=== PATIENT | female | born 1950 | race Caucasian/White ===

== ENCOUNTER → 2017-09-07 08:53 | Outpatient (CLI) | payer MEDICARE, OTHER, SELFPAY ==
--- NOTE | 2017-09-07 08:57 | DI.US.S_ITS ---
PROCEDURE: US ARTERIAL DUPLEX LE RT INDICATIONS: CLAUDICATION OF RIGHT LOWER EXTREMITY TECHNIQUE: Color and pulse Doppler interrogation was performed of the right lower extremity arterial system, with image documentation. COMPARISON: None. FINDINGS: Common femoral artery: 97 cm/sec, with triphasic flow. Deep femoral artery: Not seen Proximal superficial femoral artery: 87 cm/sec, with biphasic flow. Mid superficial femoral artery: 54 cm/sec, with biphasic flow. Distal superficial femoral artery: 38 cm/sec, with biphasic flow. Popliteal artery: No flow Posterior tibial artery: No flow Anterior tibial artery/dorsalis pedis: 23 cm/sec, with monophasic flow. Toth-scale imaging description: Minimal plaque. Superficial femoral artery in situ graft using the greater saphenous vein. IMPRESSION: 1. Profundus femoral artery is nonvisualized. 2. 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 The popliteal artery occlusion may be secondary to stenosis at the distal end of the venous graft, but indeterminate. MRA runoff study would be helpful if not contraindicated. 2. The anterior tibial artery shows low velocity, monophasic flow Dictated by: Suresh Wilson M.D. on 09/07/2017 at 11:36 Approved by: Suresh Wilson M.D. on 09/07/2017 at 11:44
== END ==
PROVIDERS: Family Provider Family Medicine; PCP Family Medicine; Visit Provider Family Medicine
DX: I70.211 Atherosclerosis of native arteries of extremities with intermittent claudication, right leg (principal)
CPT/HCPCS: 93926

== ENCOUNTER → 2017-09-25 11:33 | Outpatient (CLI) | payer MEDICARE, OTHER, SELFPAY ==
[2017-09-25 12:29] LABS: Add Manual Diff / Slide Review NO; Eosinophils Percent Auto 1.9 % (2-4); Hematocrit 43.4 % (36-46); Hemoglobin 14.4 g/dL (12.0-16.0); Lymphocytes Percent Auto 39.3 % (25-40); Mean Corpuscular HGB Conc 33.2 % (30-36); Mean Corpuscular Hemoglobin 32.2 PG (26-34); Mean Corpuscular Volume 96.9 fL (80-100); Monocytes Percent Auto 8.7 % (3-14); Neutrophils Absolute Auto 2000 /uL (3000-5900); Neutrophils Percent Auto 49.1 % (50-75); Platelet Count 178 X10^3/uL (150-400); Red Blood Cell Count 4.48 X10^6/uL (4.0-5.2); Red Cell Distribution Width 13.6 % (11.6-14.8); White Blood Cell Count 4.2 X10^3/uL (4.5-11.0)
[2017-09-25 12:52] LABS: Alanine Aminotransferase 22 IU/L (9-52); Albumin 4.5 g/dL (3.5-5.0); Albumin Globulin Ratio 1.7 (1.0-2.8); Alkaline Phosphatase 81 U/L (38-126); Aspartate Aminotransferase 24 IU/L (14-36); Bilirubin Total 0.5 mg/dL (0.2-1.3); Blood Urea Nitrogen 16 mg/dL (7-17); Carbon Dioxide 34 mmol/L (22-32); Chloride 101 mmol/L (98-107); Estimated Glomerular Filt Rate > 60.0 mL/min (>60); Globulin 2.7 g/dL (1.7-4.1); Glucose 92 mg/dL (80-110); HEMOLYSIS < 15 (0-50); Sodium 144 mmol/L (137-145); Total Protein 7.2 g/dL (6.3-8.2)
== END ==
PROVIDERS: PCP Family Medicine; Visit Provider Surgery Vascular Surgery
DX: I73.9 Peripheral vascular disease, unspecified (principal)
CPT/HCPCS: 36415; 80053; 85025

== ENCOUNTER → 2018-01-01 07:01 | Outpatient (CLI) | payer MEDICARE, OTHER, SELFPAY ==
[2018-01-01 09:19] LABS: Cholesterol 275 mg/dL (140-199); HDL Cholesterol 77 mg/dL (40-60); LDL Cholesterol Calculated 183 mg/dL (<100); Triglycerides 73 mg/dL (35-150)
== END ==
PROVIDERS: Family Provider Family Medicine; PCP Family Medicine; Visit Provider Family Medicine
DX: E78.5 Hyperlipidemia, unspecified (principal)
CPT/HCPCS: 36415; 80061

== ENCOUNTER → 2018-04-08 07:50 | Outpatient (CLI) | payer MEDICARE, OTHER, SELFPAY ==
[2018-04-08 09:09] LABS: Cholesterol 261 mg/dL (140-199); HDL Cholesterol 81 mg/dL (40-60); LDL Cholesterol Calculated 166 mg/dL (<100); Triglycerides 72 mg/dL (35-150)
== END ==
PROVIDERS: PCP Family Medicine; Visit Provider Family Medicine
DX: E78.5 Hyperlipidemia, unspecified (principal)
CPT/HCPCS: 36415; 80061

== ENCOUNTER → 2018-05-14 15:38 | Outpatient (CLI) | payer MEDICARE, OTHER, SELFPAY ==
--- NOTE | 2018-05-14 15:42 | DI.MRI.S_ITS ---
PROCEDURE: MR HEAD/BRAIN WO CON INDICATIONS: l facial nerve abn TECHNIQUE: Non-contrast axial T1 spin echo, axial T2 fast spin echo, sagittal and axial FLAIR, coronal T2 fast spin echo, axial gradient echo, axial diffusion and ADC through the brain. COMPARISON: None. FINDINGS: Image quality: Excellent. CSF spaces: Ventricles appear symmetric in size and shape. Basal cisterns are patent. No extra-axial fluid collections. Brain: In this patient with this given history, scrutiny is given to the course of the left facial nerve, including extracranially along the left parotid gland. No masses or other abnormalities can be seen to the limits of this noncontrast study. No intracranial bleeds or mass effects. There is cerebral volume loss for age. There are periventricular and deep white matter chronic small vessel ischemic changes. Brainstem appears normal. Diffusion-weighted images show no acute ischemic insults. No chronic ischemic insults. Normal intravascular flow voids are present. Skull and face: Calvarial bone marrow is normal in signal. Orbits are normal. Sinuses: Sinuses and mastoids are clear. IMPRESSION: A cause of left facial nerve abnormality is not identified on these noncontrast images. Dictated by: Sergo Cobb M.D. on 05/14/2018 at 17:20 Approved by: Sergo Cobb M.D. on 05/14/2018 at 17:22
== END ==
PROVIDERS: PCP Family Medicine; Visit Provider Family Medicine
DX: G51.4 Facial myokymia (principal); F95.9 Tic disorder, unspecified
CPT/HCPCS: 70551

== ENCOUNTER → 2018-05-27 08:10 | Outpatient (CLI) | payer MEDICARE, OTHER, SELFPAY ==
[2018-05-27 09:35] LABS: Cholesterol 204 mg/dL (140-199); HDL Cholesterol 71 mg/dL (40-60); LDL Cholesterol Calculated 118 mg/dL (<100); Triglycerides 75 mg/dL (35-150)
== END ==
PROVIDERS: PCP Family Medicine; Visit Provider Family Medicine
DX: E78.2 Mixed hyperlipidemia (principal)
CPT/HCPCS: 36415; 80061

== ENCOUNTER → 2018-11-15 08:35 | Outpatient (CLI) | payer MEDICARE, OTHER, SELFPAY ==
[2018-11-15 10:31] LABS: Cholesterol 220 mg/dL (140-199); HDL Cholesterol 81 mg/dL (40-60); LDL Cholesterol Calculated 128 mg/dL (<100); Triglycerides 55 mg/dL (35-150)
== END ==
PROVIDERS: PCP Family Medicine; Visit Provider Family Medicine
DX: E78.2 Mixed hyperlipidemia (principal)
CPT/HCPCS: 36415; 80061

== ENCOUNTER 2018-11-16 23:58 | Emergency (ER) | payer MEDICARE, OTHER, SELFPAY ==
[2018-11-17 00:15] VITALS: BP 136/77; PULSE 78; RESP 20; O2SAT 97; BMI 24.2
[2018-11-17 00:52] LABS: Add Manual Diff / Slide Review NO; Basophils Absolute Auto 0 /uL (0-100); Basophils Percent Auto 0.5 % (0-2); Eosinophils Absolute Auto 200 /uL (0-450); Eosinophils Percent Auto 1.6 % (2-4); Hematocrit 50.3 % (36-46); Hemoglobin 17.1 g/dL (12.0-16.0); Lymphocytes Absolute Auto 2500 /uL (1100-4500); Lymphocytes Percent Auto 24.9 % (25-40); Mean Corpuscular Hemoglobin 34.3 PG (26-34); Monocytes Absolute Auto 600 /uL (0-900); Monocytes Percent Auto 5.5 % (3-14); Neutrophils Absolute Auto 6900 /uL (1500-7000); Neutrophils Percent Auto 67.5 % (50-75); Platelet Count 184 X10^3/uL (150-400); Red Blood Cell Count 4.98 X10^6/uL (4.0-5.2); Red Cell Distribution Width 12.5 % (11.6-14.8); White Blood Cell Count 10.2 X10^3/uL (4.5-11.0)
[2018-11-17 00:59] VITALS: BP 131/77
[2018-11-17 00:59] LABS: Alanine Aminotransferase 21 IU/L (9-52); Albumin Globulin Ratio 1.5 (1.0-2.8); Alkaline Phosphatase 99 U/L (38-126); Aspartate Aminotransferase 35 IU/L (14-36); BUN Creatinine Ratio 24.4 (6-22); Bilirubin Total 0.9 mg/dL (0.2-1.3); Blood Urea Nitrogen 22 mg/dL (7-17); Calcium 10.6 mg/dL (8.4-10.2); Carbon Dioxide 30 mmol/L (22-32); Chloride 100 mmol/L (98-107); Estimated Glomerular Filt Rate > 60.0 mL/min (>60); Globulin 3.4 g/dL (1.7-4.1); Glucose 159 mg/dL (80-110); HEMOLYSIS 45 (0-50); Lipase 266 U/L (23-300); Potassium 3.7 mmol/L (3.4-5.1); Sodium 143 mmol/L (137-145); Total Protein 8.4 g/dL (6.3-8.2)
[2018-11-17] MEDS: SODIUM CHLORIDE 0.9% 1,000 ML 150 ML IV (01:17)
[2018-11-17 01:28] VITALS: BP 143/86
--- NOTE | 2018-11-17 01:59 | ED.ABDPAIN ---
HPI - Abdominal Pain General Chief Complaint: Abdominal Pain Stated Complaint: states has bowel obstruction, has had two before Time Seen by Provider: 11/17/18 01:53 Source: patient and family Mode of arrival: Ambulatory Limitations: no limitations History of Present Illness HPI narrative: This is a pleasant 68-year-old female who comes to the emergency department with complaint of abdominal pain. Patient states she has had a history of prior obstructions which she states were treated with surgery but she did not have resections but lysis of adhesions at that time. Patient states today she started having abdominal pain which is quite significant. It felt similar to her prior episodes when she required surgery. She states while she has been here the pain has eased up but she has started to have diarrhea frequently. She did have several episodes of vomiting earlier today. She is not currently, she denies any nausea initially but later during our conversation states that she is starting to feel nauseated. Patient has not noticed any black or blood in her stool. Her pain continues to be resolved. She denies any urinary frequency urgency or dysuria. She denies any radiation of her pain to her back, no change in location. She states it is the same location as in past events and just along her midline vertical incision. Patient denies any fevers. Related Data Home Medications Medication Instructions Recorded Confirmed aspirin 81 mg tablet,delayed 81 mg PO DAILY 01/02/18 05/29/18 release diphenhydramine HCl 50 mg capsule 50 mg PO BEDTIME PRN 01/02/18 05/29/18 ibuprofen 200 mg tablet 400 mg PO BID PRN 01/02/18 05/29/18 Previous Rx's Medication Instructions Recorded pravastatin 20 mg tablet 40 mg PO DAILY #180 tab 04/17/18 venlafaxine 37.5 mg tablet 75 mg PO DAILY #180 tab 04/17/18 clotrimazole-betamethasone 1 1 applictn TOPICAL BID #45 gram 04/22/18 %-0.05 % topical cream omeprazole 20 mg capsule,delayed 20 mg PO DAILY #90 cap 10/08/18 release diazepam 10 mg tablet 10 mg PO BID PRN #90 tab 11/01/18 Allergies Allergy/AdvReac Type Severity Reaction Status Date / Time No Known Allergies Allergy Uncoded 11/17/18 03:29 Review of Systems Review of Systems ROS Unobtainable: All systems reviewed & are unremarkable except as noted in HPI and below Constitutional Constitutional: Denies chills, Denies fever(s), Denies lethargy and Denies weakness Cardiovascular Cardiovascular: Denies chest pain and Denies dyspnea Respiratory Respiratory: Denies dyspnea Gastrointestinal Gastrointestinal: Reports abdominal pain (resolved now.), Denies melena, Denies hematochezia, Denies change in bowel habits, Denies constipation, Reports diarrhea, Reports nausea and Reports vomiting (resolved.) Genitourinary Genitourinary: Reports as per HPI, Denies hematuria, Denies urinary frequency, Denies dysuria, Denies flank pain, Denies urinary incontinence, Denies urinary hesitancy and Denies urinary urgency Neurologic Neurologic: Denies weakness [facility] Medical History Acne (Resolved 1963) Anxiety (Chronic) Cataract (Resolved 2014) Chicken pox (Resolved) Depression (Chronic) DVT (deep venous thrombosis) (Resolved 1997) Femoral-femoral bypass graft thrombosis, left (Resolved 1998) Measles (Resolved) Mumps (Resolved) Plantar warts (Resolved 1974) Substance abuse (Chronic) Surgical History Anesthesia (Resolved) History of cataract removal with insertion of prosthetic lens (Resolved 01/2015) History of gynecologic surgery (Resolved 1975) History of hip replacement (Resolved 2012) History of intestinal surgery (Resolved 05/1996) History of intestinal surgery (Resolved 10/1996) History of knee surgery (Resolved) History of partial knee replacement (Resolved 2005) History of tonsillectomy (Resolved 1959) History of vein stripping (Resolved 11/1997) Status post appendectomy (Resolved 1980) Status post delivery (Resolved 1983) Status post delivery (Resolved 1985) Status post LASIK surgery (Resolved 2000) Family History (Updated 09/04/17 @ 12:08 by Tahnia Malave) Father Lung cancer Heart disease High cholesterol Mother Lung cancer Brother Heart attack Grandmother Heart disease Social History Smoking Status: Former smoker Family History (Updated 09/04/17 @ 12:08 by Thania Malave) Father Lung cancer Heart disease High cholesterol Mother Lung cancer Brother Heart attack Grandmother Heart disease Social History Smoking Status: Former smoker Exam Narrative Exam Narrative: GENERAL: Alert and oriented x three, well nourished and well appearing female in mild distress. HEENT: Head normocephalic, atraumatic, EOMI, pupils reactive, face symmetric, moist mucous membranes NECK: Supple, full range of motion CARDIOVASCULAR: Regular rate and rhythm without murmurs, rubs or gallops. RESPIRATORY: Breath sounds equal bilaterally, no wheezes rales or rhonchi. ABDOMEN: Soft, nontender, patient has healed midline incision. Normoactive bowel sounds all 4 quadrants. No guarding or rebound, rigidity, no mass : No CVA tenderness EXTREMITIES: Normal range of motion, no clubbing or edema. Neurovascularly intact NEUROLOGICAL: Cranial nerves II through XII grossly intact. Moving all extremities SKIN: Warm, dry, no petechiae, no rashes or lesions. Initial Vital Signs Initial Vital Signs: Vital Signs Pulse Rate 78 11/17/18 00:15 Respiratory Rate 20 11/17/18 00:15 Blood Pressure 136/77 11/17/18 00:15 Pulse Oximetry 97 11/17/18 00:15 Course Orders Ordered: ED Orders 11/17/18 00:35 Complete Blood Count AUTO DIFF Stat Comprehensive Metabolic Panel Stat Lipase Stat 11/17/18 02:13 CT abdomen pelvis w con Stat 11/17/18 03:30 Urine Culture Stat Urine Microscopic Stat Discontinued Medications Sodium Chloride (Normal Saline 0.9%) 1,000 mls @ 150 mls/hr IV CONT DONNA Last Infusion: 11/17/18 02:43 Dose: 0 mls/hr Documented by: Admin: 11/17/18 01:17 Dose: 150 mls/hr Documented by: RAEANN Sodium Chloride (Normal Saline 0.9%) 1,000 mls @ 1,000 mls/hr IV BOLUS ONE Stop: 11/17/18 03:07 Last Admin: 11/17/18 04:47 Dose: Not Given Documented by: CANDIDA Ondansetron HCl (Zofran) 4 mg IV NOW ONE Stop: 11/17/18 02:14 Last Admin: 11/17/18 02:19 Dose: 4 mg Documented by: GUZMAN Ondansetron HCl (Zofran Odt Prepack) 1 bottle MISC SEEINSTR ONE Stop: 11/17/18 04:26 Last Admin: 11/17/18 04:41 Dose: 1 bottle Documented by: CANDIDA Vital Signs Vital signs: Vital Signs - 8 hr 11/17/18 00:15 11/17/18 00:59 11/17/18 01:28 Pulse Rate 78 Respiratory Rate 20 Blood Pressure 136/77 Blood Pressure [Right Arm] 131/77 143/86 H Pulse Oximetry 97 11/17/18 02:29 11/17/18 03:30 11/17/18 04:00 Pulse Rate 78 78 75 Respiratory Rate 16 17 16 Blood Pressure Blood Pressure [Right Arm] 112/56 L 115/76 121/71 Pulse Oximetry 97 98 100 MDM - Abdominal Pain Lab Data Attestation: I reviewed the patient's lab results. Result diagrams: 11/17/18 00:35 11/17/18 00:35 Labs: Lab Results 11/17/18 11/17/18 11/17/18 Range/Units 00:35 00:35 03:30 WBC 10.2 (4.5-11.0) X10^3/uL RBC 4.98 (4.0-5.2) X10^6/uL Hgb 17.1 H (12.0-16.0) g/dL Hct 50.3 H (36-46) % MCV 101.0 H (80-100) fL MCH 34.3 H (26-34) PG MCHC 34.0 (30-36) % RDW 12.5 (11.6-14.8) % Plt Count 184 (150-400) X10^3/uL Neut % (Auto) 67.5 (50-75) % Lymph % (Auto) 24.9 L (25-40) % Larue % (Auto) 5.5 (3-14) % Eos % (Auto) 1.6 L (2-4) % Baso % (Auto) 0.5 (0-2) % Neut # (Auto) 6900 (8372-6065) /uL Lymph # (Auto) 2500 (1509-2060) /uL Larue # (Auto) 600 (0-900) /uL Eos # (Auto) 200 (0-450) /uL Baso # (Auto) 0 (0-100) /uL Sodium 143 (137-145) mmol/L Potassium 3.7 (3.4-5.1) mmol/L Chloride 100 (98-107) mmol/L Carbon Dioxide 30 (22-32) mmol/L BUN 22 H (7-17) mg/dL Creatinine 0.90 (0.52-1.04) mg/dL Estimated GFR > 60.0 (>60) mL/min BUN/Creatinine Ratio 24.4 H (6-22) Glucose 159 H (80-110) mg/dL Calcium 10.6 H (8.4-10.2) mg/dL Total Bilirubin 0.9 (0.2-1.3) mg/dL AST 35 (14-36) IU/L ALT 21 (9-52) IU/L Alkaline Phosphatase 99 (38-126) U/L Total Protein 8.4 H (6.3-8.2) g/dL Albumin 5.0 (3.5-5.0) g/dL Globulin 3.4 (1.7-4.1) g/dL Albumin/Globulin Ratio 1.5 (1.0-2.8) Lipase 266 (23-300) U/L Urine RBC None seen (0-5/HPF) Urine WBC 1-5/hpf (0-5/HPF) Urine Bacteria Many (>30) H (None) Ur Culture Indicated? Specimen cultured Point of care testing: Urine Dip Bedside Urine Glucose Negative Bedside Urine Bilirubin - Negative Bedside Urine Ketone +/- 5 Urine Specific [place] 1.000 Bedside Urine Occult Blood - Negative Bedside Urine pH 7.5 Bedside Urine Protein +/- 15 Bedside Urine Urobilinogen +/- 1mg Bedside Urine Nitrite + Positive Bedside Urine Leukocytes + [address] scan - abdomen: Radiologist's impression: There is excess fluid throughout the small bowel lumen, and in the ascending colon. There is moderate wall thickening of the multiple mid to distal small bowel loops adjacent interloop stranding/edema. Maximum diameter of the abnormal loops of the small bowels between 2.5 and 3 cm. The distal small bowel is unremarkable. Appendix is not visualized, other than excess fluid within the lumen the colon is unremarkable. No definite colon wall abnormality. Pelvic soft tissue structures are normal appearing. No significant bone lesion is identified. No pneumoperitoneum. Results were called to myself by radiology. [facility] Narrative Medical decision making narrative: Patient pain has resolved but nausea returned. She has been having diarrhea since arrival here but was not earlier today. S with patient and will evaluate with CT, I suspect she may have had some adhesions or partial bowel obstruction that is resolving but if she is continuing to have frequent diarrhea and nausea plan for imaging. Her lab work shows hemoglobin is slightly elevated with no elevated white count, BUN is elevated but normal electrolytes with a normal renal function. Patient's abdominal labs are normal otherwise. Patient has hypercalcemia and elevated glucose at 159. LFTs and lipase are in normal range. CT shows thickening with some fluid and moderate distension. Discussed with patient she has not been having any emesis. She has continued to have some diarrhea but has been increasing in frequency. She states her pain is much improved and very mild in sensation. She describes it as feeling like she has done a few too many sit-ups. Patient is feeling much better. We discussed possibly observation for partial bowel obstruction versus clear liquid diet and close follow-up. Patient and I discussed at length and she elects to return home. She has follow up with Dr. Singh on Sunday, 24 hours from now. We discussed signs and symptoms to watch for, she is aware that if she has worsening she potentially have a bowel obstruction and does need to return. Discharge Plan Departure Patient Disposition: Home Clinical Impression: Abdominal pain, Thickened small bowel Discharge Date/Time: 11/17/18 04:44 Activity Restrictions/Additional Instructions: Follow up with Dr. Singh at your appointment on Sunday. As discussed your CT shows possible enteritis versus a partial bowel obstruction if her symptoms are worsening return to the emergency department. Continue with clear fluids until you are seen by Dr. Singh and then together can make the decision whether not to advance your diet to solids. You may take Zofran 1 tablet every 6 hours as needed for nausea. Return to the emergency department for fevers greater than 100.4 F, recurrent vomiting, increasing or new abdominal pain, back pain or flank pain. New chest, shortness of breath, lightheadedness or passing-out, black or bloody stools, if you are unable to have a bowel movement and especially if you are not having bowel movements and not passing gas or flatus. Prescriptions: No Action clotrimazole-betamethasone [Lotrisone] 1-0.05 % cream 1 applictn Topical BID Qty: 45 RF: 2 omeprazole 20 mg capsule,delayed release(DR/EC) 20 mg PO DAILY Qty: 90 RF: 1 diazepam [Valium] 10 mg tablet 10 mg PO BID PRN (Reason: anxiety) Qty: 90 RF: 0 aspirin 81 mg tablet,delayed release (DR/EC) 81 mg PO DAILY RF: 0 ibuprofen 200 mg tablet 400 mg PO BID PRNRF: 0 diphenhydramine HCl 50 mg capsule 50 mg PO BEDTIME PRNRF: 0 pravastatin 20 mg tablet 40 mg PO DAILY Qty: 180 RF: 3 venlafaxine 37.5 mg tablet 75 mg PO DAILY Qty: 180 RF: 5 Referrals: Douglas Singh MD [Primary Care Provider] -
--- NOTE | 2018-11-17 02:13 | DI.CT.S_ITS ---
PROCEDURE: CT ABDOMEN PELVIS W CON INDICATIONS: abdominal pain, improved, vomiting and diarrhea, history of obstruction. TECHNIQUE: After the administration of intravenous contrast, 5 mm thick sections acquired from the diaphragm to the symphysis. 5 mm coronal and sagittal reformats were acquired. For radiation dose reduction, the following was used: automated exposure control, adjustment of mA and/or kV according to patient size. COMPARISON: [facility], CT, ABDOMEN/PELVIS WITH CONTRAST, 03/22/2016, 11:33. FINDINGS: Image quality: There is metallic streak artifact from patient's left hip prosthesis.. ABDOMEN: Lung bases: There is mild atelectasis bilaterally. Heart size is normal. Solid organs: There is a cyst in segment 2 of the left hepatic lobe measuring up to 1.3 cm. There are also a few small hypodense foci scattered in the liver which are too small to characterize but likely represent cysts. The gallbladder appears within normal limits without calcified gallstones. Biliary system is non-dilated. Pancreas enhances normally. No peripancreatic fat stranding or fluid collections. No pancreatic duct dilatation. The spleen is normal in size. No adrenal nodules. Kidneys demonstrate no hydronephrosis. There is focal cortical thinning in the inferior pole the right kidney which may represent sequela of a prior infarct, infection, or trauma. Peritoneum and bowel: There are a few segments of mild small bowel wall thickening and enhancement with mild fluid distention measuring up to 2.6 cm localized in the lower abdomen and pelvis predominantly in the right lower quadrant. There is a gradual transition to nondistended distal loops of small bowel without a focal transition point. There is mild associated fat stranding and a small amount of interloop free fluid. The findings are consistent with a nonspecific enteritis, likely infectious or inflammatory. Mild segmental wall thickening and enhancement are also demonstrated in the sigmoid colon. No free air. Nodes and vessels: No retroperitoneal or mesenteric adenopathy by size criteria. Aorta and inferior vena cava are normal in size. Miscellaneous: No ventral hernias. PELVIS: Genitourinary: Bladder wall thickness is normal. Miscellaneous: No inguinal hernias or adenopathy. Bones: No suspicious bony lesions. No vertebral body compression fractures. IMPRESSION: 1. Multiple segments of mild small bowel wall thickening and enhancement with minimal fluid distention consistent with a nonspecific enteritis, likely infectious or inflammatory. There is a small amount of associated interloop free fluid. 2. Mild segmental wall thickening and mucosal enhancement in the sigmoid colon consistent with a nonspecific infectious or inflammatory colitis. Dictated by: Delfino Donaldson M.D. on 11/17/2018 at 8:04 Approved by: Delfino Donaldson M.D. on 11/17/2018 at 8:12
[2018-11-17] MEDS: ONDANSETRON 4 MG/2 ML INJ IV (02:19)
[2018-11-17 02:29] VITALS: BP 112/56; PULSE 78; RESP 16; O2SAT 97
[2018-11-17 03:30] VITALS: BP 115/76; PULSE 78; RESP 17; O2SAT 98
[2018-11-17 04:00] VITALS: BP 121/71; PULSE 75; RESP 16; O2SAT 100
[2018-11-17 04:04] LABS: RBC Urine None Seen (0-5/HPF)
[2018-11-17 04:15] LABS: Bacteria Urine Many (>30); Culture Indicated Urine Specimen Cultured; WBC Urine 1-5/HPF (0-5/HPF)
[2018-11-17] MEDS: ONDANSETRON 4 MG ODT PREPACK 1 BOTTLE MISC (04:41)
== END 2018-11-17 04:44 | disposition home or self-care (01) ==
PROVIDERS: Emergency Provider Emergency Medicine; PCP Family Medicine
DX: R10.9 Unspecified abdominal pain (principal); K63.9 Disease of intestine, unspecified
CPT/HCPCS: 36415; 74177; 80053; 81003; 81015; 83690; 85025; 87077; 87086; 87186; 96361; 96374; 99283; 99284; J2405; Q9967

== ENCOUNTER 2018-11-26 04:52 | Inpatient (IN) | payer MEDICARE, OTHER, SELFPAY ==
[2018-11-26] VITALS (11 sets, daily range): BP systolic 126–182; BP diastolic 66–107; PULSE 72–98; RESP 16–22; TEMP 35.6–36.9; O2SAT 93–100; BMI 24.2
--- NOTE | 2018-11-26 04:58 | ED.ABDPAIN ---
HPI - Abdominal Pain General Chief Complaint: Abdominal Pain Stated Complaint: terrible stomach cramping vomiting no bowel moving Time Seen by Provider: 11/26/18 04:55 Source: patient Mode of arrival: Ambulatory Limitations: no limitations History of Present Illness HPI narrative: 68-year-old female here for evaluation of abdominal pain, vomiting, no bowel movement for 1.5-2 weeks. Was seen here in the emergency department approximately 10 days ago for abdominal pain. She has a prior history of bowel obstructions. Both of which were in 1996. She stated that she did have surgery for those obstructions however there was no colon resections. It was lysis of adhesions. Has not had any issues since then. Does have a prior history of an exploratory lap for endometriosis many years ago. Does have a history of appendectomy. Prior history of C-sections. She states that since her last visit here in the emergency department she has not had a bowel movement. She did take some laxatives last evening. She states that she ?hears bowel sounds ?however has not had any bowel movement. The worsening abdominal pain and vomiting started approximately 3 hours ago. No fevers. Related Data Home Medications Medication Instructions Recorded Confirmed aspirin 81 mg tablet,delayed 81 mg PO DAILY 01/02/18 05/29/18 release diphenhydramine HCl 50 mg capsule 50 mg PO BEDTIME PRN 01/02/18 05/29/18 ibuprofen 200 mg tablet 400 mg PO BID PRN 01/02/18 05/29/18 Previous Rx's Medication Instructions Recorded pravastatin 20 mg tablet 40 mg PO DAILY #180 tab 04/17/18 venlafaxine 37.5 mg tablet 75 mg PO DAILY #180 tab 04/17/18 clotrimazole-betamethasone 1 1 applictn TOPICAL BID #45 gram 04/22/18 %-0.05 % topical cream omeprazole 20 mg capsule,delayed 20 mg PO DAILY #90 cap 10/08/18 release diazepam 10 mg tablet 10 mg PO BID PRN #90 tab 11/01/18 nitrofurantoin macrocrystal 100 mg 100 mg PO BID #20 cap 11/19/18 capsule ondansetron HCl 4 mg tablet 4 mg PO Q6H PRN #30 tab 11/19/18 Allergies Allergy/AdvReac Type Severity Reaction Status Date / Time No Known Allergies Allergy Uncoded 11/18/18 10:41 Review of Systems Constitutional Constitutional: Denies fever(s) Cardiovascular Cardiovascular: Denies chest pain and Denies dyspnea Respiratory Respiratory: Denies dyspnea Gastrointestinal Gastrointestinal: Reports abdominal pain, Reports constipation, Reports nausea and Reports vomiting Genitourinary Genitourinary: Denies dysuria Musculoskeletal Musculoskeletal: Denies myalgias and Denies arthralgias Integumentary/Breasts Skin/Breast: Denies rash Neurologic Neurologic: Denies behavioral changes Psychiatric Psychiatric: Denies behavioral changes Hematologic/Lymphatic Hematologic/Lymphatic: Denies easy bleeding and Denies easy bruising [facility] Medical History Acne (Resolved 1963) Anxiety (Chronic) Cataract (Resolved 2014) Chicken pox (Resolved) Depression (Chronic) DVT (deep venous thrombosis) (Resolved 1997) Femoral-femoral bypass graft thrombosis, left (Resolved 1998) Measles (Resolved) Mumps (Resolved) Plantar warts (Resolved 1974) Substance abuse (Chronic) Surgical History Anesthesia (Resolved) History of cataract removal with insertion of prosthetic lens (Resolved 01/2015) History of gynecologic surgery (Resolved 1975) History of hip replacement (Resolved 2012) History of intestinal surgery (Resolved 05/1996) History of intestinal surgery (Resolved 10/1996) History of knee surgery (Resolved) History of partial knee replacement (Resolved 2005) History of tonsillectomy (Resolved 1959) History of vein stripping (Resolved 11/1997) Status post appendectomy (Resolved 1980) Status post delivery (Resolved 1983) Status post delivery (Resolved 1985) Status post LASIK surgery (Resolved 2000) Family History (Updated 09/04/17 @ 12:08 by Thania Malave) Father Lung cancer Heart disease High cholesterol Mother Lung cancer Brother Heart attack Grandmother Heart disease Social History Smoking Status: Former smoker Family History Father Lung cancer Heart disease High cholesterol Mother Lung cancer Brother Heart attack Grandmother Heart disease Social History Smoking Status: Former smoker Exam Initial Vital Signs Initial Vital Signs: Vital Signs Temperature 97.7 F 11/26/18 04:59 Pulse Rate 78 11/26/18 04:59 Respiratory Rate 22 11/26/18 04:59 Blood Pressure 182/107 H 11/26/18 04:59 Pulse Oximetry 100 11/26/18 04:59 Const General: cooperative, well developed and well groomed Orientation: alert and awake HENMT Head: normal to inspection and normocephalic Resp Effort & Inspection: normal respiratory effort Auscultation: clear to auscultation bilaterally Cardio Rate: regular rate Rhythm: regular rhythm GI Inspection: non-distended Palpation: soft and tender (Lower abdomen) Other: Decreased bowel sounds Skin Lesions: no lesions Rashes: no rashes Neuro General: alert and awake Cognition: normal cognition Speech: speech normal Motor: muscle tone normal throughout Extrem General: normal to inspection and capillary refill normal Psych Appearance: grossly normal and well kempt Course Orders Ordered: ED Orders 11/26/18 04:59 CT abdomen pelvis w con Stat 11/26/18 05:05 Complete Blood Count AUTO DIFF Stat Comprehensive Metabolic Panel Stat Lactate (Lactic Acid) Stat Lipase Stat 11/26/18 06:24 Consult to Physician Routine Sodium Chloride (Normal Saline 0.9%) 1,000 mls @ 150 mls/hr IV CONT DONNA Last Admin: 11/26/18 05:59 Dose: 150 mls/hr Documented by: RACHEL Ondansetron HCl (Zofran) 4 mg IV Q4HR PRN PRN Reason: Nausea And Vomiting Sodium Biphosphate/Sodium Phosphate (Fleet Enema) 1 each RI NOW ONE Stop: 11/26/18 07:31 Discontinued Medications Morphine Sulfate (Morphine) 4 mg IV NOW ONE Stop: 11/26/18 05:47 Ondansetron HCl (Zofran) 4 mg IV NOW ONE Stop: 11/26/18 04:59 Last Admin: 11/26/18 05:07 Dose: 4 mg Documented by: RACHEL Ondansetron HCl (Zofran) 4 mg IV NOW ONE Stop: 11/26/18 06:10 Last Admin: 11/26/18 06:30 Dose: 4 mg Documented by: RACHEL Oxycodone/Acetaminophen (Percocet 5/325) 1 tab PO NOW ONE Stop: 11/26/18 05:48 Last Admin: 11/26/18 05:51 Dose: 1 tab Documented by: RACHEL Vital Signs Vital signs: Vital Signs - 8 hr 11/26/18 04:59 Temperature 97.7 F Pulse Rate 78 Respiratory Rate 22 Blood Pressure 182/107 H Pulse Oximetry 100 MDM - Abdominal Pain Medical Records Attestation: I reviewed the patient's medical records. Lab Data Attestation: I reviewed the patient's lab results. Result diagrams: 11/26/18 05:05 11/26/18 05:05 Labs: Lab Results 11/26/18 11/26/18 11/26/18 Range/Units 05:05 05:05 05:05 WBC 10.0 (4.5-11.0) X10^3/uL RBC 4.66 (4.0-5.2) X10^6/uL Hgb 15.9 (12.0-16.0) g/dL Hct 47.9 H (36-46) % MCV 102.9 H (80-100) fL MCH 34.2 H (26-34) PG MCHC 33.2 (30-36) % RDW 12.6 (11.6-14.8) % Plt Count 203 (150-400) X10^3/uL Neut % (Auto) 68.2 (50-75) % Lymph % (Auto) 23.4 L (25-40) % [place] % (Auto) 6.7 (3-14) % Eos % (Auto) 1.2 L (2-4) % Baso % (Auto) 0.5 (0-2) % Neut # (Auto) 6800 (5762-8530) /uL Lymph # (Auto) 2300 (2121-7535) /uL [place] # (Auto) 700 (0-900) /uL Eos # (Auto) 100 (0-450) /uL Baso # (Auto) 100 (0-100) /uL Sodium 142 (137-145) mmol/L Potassium 3.4 (3.4-5.1) mmol/L Chloride 103 (98-107) mmol/L Carbon Dioxide 27 (22-32) mmol/L BUN 21 H (7-17) mg/dL Creatinine 0.70 (0.52-1.04) mg/dL Estimated GFR > 60.0 (>60) mL/min BUN/Creatinine Ratio 30.0 H (6-22) Glucose 119 H (80-110) mg/dL Lactate 1.6 (0.7-2.1) mmol/L Calcium 10.0 (8.4-10.2) mg/dL Total Bilirubin 0.7 (0.2-1.3) mg/dL AST 28 (14-36) IU/L ALT 19 (9-52) IU/L Alkaline Phosphatase 112 (38-126) U/L Total Protein 7.5 (6.3-8.2) g/dL Albumin 4.6 (3.5-5.0) g/dL Globulin 2.9 (1.7-4.1) g/dL Albumin/Globulin Ratio 1.6 (1.0-2.8) Lipase 3540 H D (23-300) U/L Imaging Data CT scan - abdomen: Radiologist's impression: Preliminary report Moderate distal colonic and rectal fecal debris with a air, fluid and mottled intraluminal contents with a mildly distended more proximal to the dense fecal debris compatible with left colonic constipation. Result inflammatory small bowel changes MDM Narrative Medical decision making narrative: Patient has an elevated lipase. She does have generalized abdominal tenderness and has had vomiting. unsure the exact etiology of the pancreatitis. Patient denies any alcohol use. She has never had pancreatitis in the past. CT scan today shows constipation. She does have stool/fluid filled colon from the rectum to the cecum. Patient received pain medication in several doses a nausea medicine here in the ER. Unsure if the nausea and the pain is related to the constipation or the pancreatitis or both. Given the amount of constipation and the level symptoms that the patient is having will admit for fluid, NPO and a bowel regimen. Discussed the case with Dr. Holcomb who is on-call for the patient's primary provider. He has that we admit the patient under Dr. Singh who was her primary provider. Discussed the admission with the patient. She expressed understanding and agreement. Discharge Plan Departure Patient Disposition: Admitted As Inpatient Clinical Impression: Pancreatitis Qualifiers: Chronicity: acute Pancreatitis type: unspecified pancreatitis type Acute pancreatitis complication: unspecified Qualified Code(s): K85.90 - Acute pancreatitis without necrosis or infection, unspecified Constipation Qualifiers: Constipation type: unspecified constipation type Qualified Code(s): K59.00 - Constipation, unspecified Admit Date/Time: 11/26/18 06:30 Admit Provider: Douglas Singh
--- NOTE | 2018-11-26 04:59 | DI.CT.S_ITS ---
PROCEDURE: CT ABDOMEN PELVIS W CON INDICATIONS: Generalized abdominal pain ,history of bowel obstructions TECHNIQUE: After the administration of intravenous contrast, 5 mm thick sections acquired from the diaphragm to the symphysis. 5 mm coronal and sagittal reformats were acquired. For radiation dose reduction, the following was used: automated exposure control, adjustment of mA and/or kV according to patient size. COMPARISON: [facility], CT, ABDOMEN/PELVIS WITH CONTRAST, 03/22/2016, 11:33. [facility], CT, CT ABDOMEN PELVIS W CON, 11/17/2018, 2:48. FINDINGS: Image quality: Excellent. ABDOMEN: Lung bases: Lung bases are clear. Heart size is normal. Solid organs: Liver is normal in size and enhancement. Gallbladder is normal. Biliary system is non dilated. Pancreas enhances normally. Spleen is normal in size and enhancement. No adrenal nodules. Kidneys demonstrate normal size and enhancement, without hydronephrosis. Peritoneum and bowel: Stomach is nondistended. There may be mild thickening of gastric wall and increased gastric mucosal enhancement. Fluid-filled small intestine demonstrates normal caliber and mildly increased mucosal enhancement. Colon loops are filled with fluid with several air-fluid levels and demonstrates subtle increased mucosal enhancement. There is subtle colonic wall thickening in sigmoid colon. No free fluid or air. Scattered colonic diverticula are present in sigmoid colon. No CT findings to suggest acute diverticulitis. Nodes and vessels: No retroperitoneal or mesenteric adenopathy by size criteria. Aorta and inferior vena cava are normal in size. Miscellaneous: No ventral hernias. PELVIS: Genitourinary: Bladder wall thickness is normal. Miscellaneous: No inguinal hernias or adenopathy. Bones: No suspicious bony lesions. No vertebral body compression fractures. IMPRESSION: 1. Fluid-filled small intestine demonstrates normal caliber with subtle increased mucosal enhancement. Colon loops are filled with fluid with several air-fluid levels and demonstrates mildly increased mucosal enhancement. There are CT findings are consistent with mild residual enterocolitis. Overall, there is improvement compared to 11/17/2018. No evidence for small bowel obstruction. 2. Diverticulosis without acute diverticulitis. Dictated by: Paz Leavitt M.D. on 11/26/2018 at 8:21 Approved by: Paz Leavitt M.D. on 11/26/2018 at 8:40
[2018-11-26] MEDS: ONDANSETRON 4 MG/2 ML INJ IV ×2 (05:07→06:30)
[2018-11-26 05:15] LABS: Add Manual Diff / Slide Review NO; Basophils Absolute Auto 100 /uL (0-100); Basophils Percent Auto 0.5 % (0-2); Eosinophils Absolute Auto 100 /uL (0-450); Eosinophils Percent Auto 1.2 % (2-4); Hematocrit 47.9 % (36-46); Hemoglobin 15.9 g/dL (12.0-16.0); Lymphocytes Absolute Auto 2300 /uL (1100-4500); Lymphocytes Percent Auto 23.4 % (25-40); Mean Corpuscular HGB Conc 33.2 % (30-36); Mean Corpuscular Hemoglobin 34.2 PG (26-34); Mean Corpuscular Volume 102.9 fL (80-100); Monocytes Absolute Auto 700 /uL (0-900); Monocytes Percent Auto 6.7 % (3-14); Neutrophils Absolute Auto 6800 /uL (1500-7000); Neutrophils Percent Auto 68.2 % (50-75); Platelet Count 203 X10^3/uL (150-400); Red Blood Cell Count 4.66 X10^6/uL (4.0-5.2); Red Cell Distribution Width 12.6 % (11.6-14.8)
[2018-11-26 05:25] LABS: Alanine Aminotransferase 19 IU/L (9-52); Albumin 4.6 g/dL (3.5-5.0); Albumin Globulin Ratio 1.6 (1.0-2.8); Alkaline Phosphatase 112 U/L (38-126); Aspartate Aminotransferase 28 IU/L (14-36); Bilirubin Total 0.7 mg/dL (0.2-1.3); Blood Urea Nitrogen 21 mg/dL (7-17); Carbon Dioxide 27 mmol/L (22-32); Chloride 103 mmol/L (98-107); Estimated Glomerular Filt Rate > 60.0 mL/min (>60); Globulin 2.9 g/dL (1.7-4.1); Glucose 119 mg/dL (80-110); HEMOLYSIS < 15 (0-50); Potassium 3.4 mmol/L (3.4-5.1); Sodium 142 mmol/L (137-145); Total Protein 7.5 g/dL (6.3-8.2)
[2018-11-26 05:26] LABS: Lactate (Lactic Acid) 1.6 mmol/L (0.7-2.1)
[2018-11-26 05:32] LABS: Lipase 3540 U/L (23-300)
[2018-11-26] MEDS: OXYCODONE/ACETAMINOPHEN 5/325 TABLET 1 TAB PO (05:51)
[2018-11-26] MEDS: SODIUM CHLORIDE 0.9% 1,000 ML 150 ML IV ×3 (05:59→20:54)
[2018-11-26] MEDS: FLEETS ENEMA 1 EACH PR (07:30)
[2018-11-26] MEDS: METOCLOPRAMIDE 10 MG/2 ML INJ 5 MG IV ×3 (09:28→23:46)
[2018-11-26] MEDS: HYDROMORPHONE 1 MG INJ IV ×3 (09:28→22:31)
[2018-11-26] MEDS: ENOXAPARIN 40 MG/0.4 ML SYRINGE SUBCUT (09:44)
--- NOTE | 2018-11-26 10:17 | CM.DANOTE ---
DCP: Case received, EMR reviewed and met with patient. Introduced self and role. Was able to meet with patient in her room and obtain baseline history and activity level. DCP assessment/template completed with information currently available. Patient is a 68 year old female who admitted early this morning to the care of the hospitalist team. PCP:Dr. Singh. Payer: confirmed: Medicare/[facility]. Patient came to the hospital via family vehicle secondary to abdominal pain and cramping. She holds diagnosis of acute pancreatitis. Met with patient, and she also mentioned that she has had history of bowel obstructions as well. Patient alert and oriented. She was sitting up in bed talking to her daughter and grandson over the phone. Patient stated, they gave her something to help her have a bowel movement, which was helpful. Patient is active and independent. 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 , Norris, resides with patient, and he is retired. P: DCP to continue to follow. Patient should be able to go home when she is medically stable. Regla Mcpherson RN/Level [employer] Forming Machine Operator
--- NOTE | 2018-11-26 10:26 | PM.CN ---
History of Present Illness Consult details Date Patient Seen: 11/26/18 Time Patient Seen: 10:30 Chief complaint: terrible stomach cramping vomiting no bowel moving Narrative: 68-year-old white female patient with recent severe constipation having no bowel movement for approximately 2 weeks. Came to emergency department last night with severe abdominal pain and of course constipation. Was found to have an amylase of 3500 normal white count normal hemoglobin. She has had some vomiting. Her main complaint is lower abdominal pain. No history of cholecystitis or known cholelithiasis no history of prior pancreatitis. [facility] Medical History Acne (Resolved 1963) Anxiety (Chronic) Cataract (Resolved 2014) Chicken pox (Resolved) Depression (Chronic) DVT (deep venous thrombosis) (Resolved 1997) Femoral-femoral bypass graft thrombosis, left (Resolved 1998) Measles (Resolved) Mumps (Resolved) Plantar warts (Resolved 1974) Substance abuse (Chronic) Surgical History Anesthesia (Resolved) History of cataract removal with insertion of prosthetic lens (Resolved 01/2015) History of gynecologic surgery (Resolved 1975) History of hip replacement (Resolved 2012) History of intestinal surgery (Resolved 05/1996) History of intestinal surgery (Resolved 10/1996) History of knee surgery (Resolved) History of partial knee replacement (Resolved 2005) History of tonsillectomy (Resolved 1959) History of vein stripping (Resolved 11/1997) Status post appendectomy (Resolved 1980) Status post delivery (Resolved 1983) Status post delivery (Resolved 1985) Status post LASIK surgery (Resolved 2000) Family History (Updated 09/04/17 @ 12:08 by Thania Malave) Father Lung cancer Heart disease High cholesterol Mother Lung cancer Brother Heart attack Grandmother Heart disease Social History Smoking Status: Former smoker Family History Father Lung cancer Heart disease High cholesterol Mother Lung cancer Brother Heart attack Grandmother Heart disease Social History household members: spouse Smoking Status: Former smoker Meds Home Medications and Allergies Home Medications Medication Instructions Recorded Confirmed Type aspirin 81 mg tablet,delayed 81 mg PO DAILY 01/02/18 05/29/18 History release diphenhydramine HCl 50 mg capsule 50 mg PO BEDTIME PRN 01/02/18 05/29/18 History ibuprofen 200 mg tablet 400 mg PO BID PRN 01/02/18 05/29/18 History pravastatin 20 mg tablet 40 mg PO DAILY #180 tab 04/17/18 11/26/18 Rx venlafaxine 37.5 mg tablet 75 mg PO DAILY #180 tab 04/17/18 05/29/18 Rx clotrimazole-betamethasone 1 1 applictn TOPICAL BID #45 gram 04/22/18 05/29/18 Rx %-0.05 % topical cream omeprazole 20 mg capsule,delayed 20 mg PO DAILY #90 cap 10/08/18 11/26/18 Rx release diazepam 10 mg tablet 10 mg PO BID PRN #90 tab 11/01/18 11/26/18 Rx nitrofurantoin macrocrystal 100 mg 100 mg PO BID #20 cap 11/19/18 11/26/18 Rx capsule ondansetron HCl 4 mg tablet 4 mg PO Q6H PRN #30 tab 11/19/18 11/26/18 Rx ciprofloxacin HCl 250 mg PO BID 11/26/18 11/26/18 History Allergies Allergy/AdvReac Type Severity Reaction Status Date / Time No Known Drug Allergies Allergy Verified 11/26/18 08:46 Review of Systems Review of Systems ROS Unobtainable: All systems reviewed & are unremarkable except as noted in HPI and below Exam Vital Signs (past 8 hours): - 11/26/18 04:59 11/26/18 06:45 11/26/18 07:44 Temperature 97.7 F 97.5 F L 97.3 F L Pulse Rate 78 87 72 Respiratory Rate 22 20 16 Blood Pressure 182/107 H 176/72 H 155/78 H Pulse Oximetry 100 100 100 11/26/18 08:41 11/26/18 09:37 Temperature 97.3 F L Pulse Rate 72 73 Respiratory Rate 16 16 Blood Pressure 155/78 H 136/78 Pulse Oximetry 100 Oxygen Delivery Method Room Air Oxygen Flow Rate 0 Narrative Exam Narrative: At the moment the patient has no pain. She actually has had a large bowel movement following an enema this morning. She is afebrile. Vital signs are normal. Lungs distant breath sounds but no rales or wheezes Heart regular rhythm no murmur Abdomen is not distended. It is fairly soft. Some mild left lower quadrant tenderness. No epigastric tenderness. No masses. Objective Labs Result Diagrams: 11/26/18 05:05 11/26/18 05:05 Labs: Laboratory Results - last 24 hr 11/26/18 11/26/18 11/26/18 05:05 05:05 05:05 WBC 10.0 RBC 4.66 Hgb 15.9 Hct 47.9 H MCV 102.9 H MCH 34.2 H MCHC 33.2 RDW 12.6 Plt Count 203 Neut % (Auto) 68.2 Lymph % (Auto) 23.4 L [place] % (Auto) 6.7 Eos % (Auto) 1.2 L Baso % (Auto) 0.5 Neut # (Auto) 6800 Lymph # (Auto) 2300 [place] # (Auto) 700 Eos # (Auto) 100 Baso # (Auto) 100 Sodium 142 Potassium 3.4 Chloride 103 Carbon Dioxide 27 BUN 21 H Creatinine 0.70 Estimated GFR > 60.0 BUN/Creatinine Ratio 30.0 H Glucose 119 H Lactate 1.6 Calcium 10.0 Total Bilirubin 0.7 AST 28 ALT 19 Alkaline Phosphatase 112 Total Protein 7.5 Albumin 4.6 Globulin 2.9 Albumin/Globulin Ratio 1.6 Lipase 3540 H D Assessment & Plan Assessment & Plan narrative: Patient with chronic constipation. Had a colonoscopy approximately 5 years ago. No significant findings with that exam. 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 My recommendation is observation at this point. I have started her on a clear liquid diet slowly. Will convert her as needed Reglan and to the scheduled 5 mg Q 6 hours. This may help gastric emptying. We will follow her amylase lipase. She does need a colonoscopy but I would prefer not to give her a full bowel prep until the pancreatitis issue was resolved.
--- NOTE | 2018-11-26 13:01 | PM.HP.1 ---
History of Present Illness History of Present Illness Date Patient Seen: 11/26/18 Time Patient Seen: 08:01 Chief complaint: terrible stomach cramping vomiting no bowel moving Narrative: Pancreatitis. Patient is admitted this morning through the emergency room. She was awakened early this morning approximately 5 4:00 a.m. with severe abdominal pain pain progressed during the course of the morning. She has some nausea and vomiting at that time. Patient has history of bowel obstructions in the past any get an 2 operations. Concerned about same she came to the emergency room for evaluation. When patient went to bed SI she is feeling fine and in retrospect no prodrome of symptoms. She has not been sick whatsoever she went to work yesterday. Her other issue has been cook constipation is been several days perhaps even up to 2 weeks for she had a bowel movement. She had an evaluation done as an outpatient with with [facility] CT of the abdomen that showed some thickening of the small bowel mucosa large bowel. Consistent with some sort enteritis. She had made a referral to the general surgeons here locally which is not been completed. Concern being she has some sore enteritis and may need colonoscopy referral to this. Meanwhile patient denies any alcohol. She has no high triglycerides. No history of pancreatitis in the past and no history of gallstones. Patient History Medical History Acne (Resolved 1963) Anxiety (Chronic) Cataract (Resolved 2014) Chicken pox (Resolved) Depression (Chronic) DVT (deep venous thrombosis) (Resolved 1997) Femoral-femoral bypass graft thrombosis, left (Resolved 1998) Measles (Resolved) Mumps (Resolved) Plantar warts (Resolved 1974) Substance abuse (Chronic) Surgical History Anesthesia (Resolved) History of cataract removal with insertion of prosthetic lens (Resolved 01/2015) History of gynecologic surgery (Resolved 1975) History of hip replacement (Resolved 2012) History of intestinal surgery (Resolved 05/1996) History of intestinal surgery (Resolved 10/1996) History of knee surgery (Resolved) History of partial knee replacement (Resolved 2005) History of tonsillectomy (Resolved 1959) History of vein stripping (Resolved 11/1997) Status post appendectomy (Resolved 1980) Status post delivery (Resolved 1983) Status post delivery (Resolved 1985) Status post LASIK surgery (Resolved 2000) Family History Father Lung cancer Heart disease High cholesterol Mother Lung cancer Brother Heart attack Grandmother Heart disease Social History household members: spouse Smoking Status: Former smoker Family & Social History Family History Father Lung cancer Heart disease High cholesterol Mother Lung cancer Brother Heart attack Grandmother Heart disease Social History: household members spouse Prior Living Arrangements House Safety & Behavioral: Feels Safe in Current Yes Environment Been Physically Hurt or No Threatened By a Person Suicidal Ideation Description None Suicide Plan Description No Plan Tobacco & Substance use: Smoking Status Former smoker alcohol intake frequency 0-2 drinks per day Substance Use Type does not use Meds Home Medications and Allergies Home Medications Medication Instructions Recorded Confirmed Type aspirin 81 mg tablet,delayed 81 mg PO DAILY 01/02/18 11/26/18 History release ibuprofen 200 mg tablet 400 mg PO BID 01/02/18 11/26/18 History pravastatin 20 mg tablet 40 mg PO DAILY #180 tab 04/17/18 11/26/18 Rx venlafaxine 37.5 mg tablet 75 mg PO DAILY #180 tab 04/17/18 11/26/18 Rx clotrimazole-betamethasone 1 1 applictn TOPICAL BID #45 gram 04/22/18 11/26/18 Rx %-0.05 % topical cream omeprazole 20 mg capsule,delayed 20 mg PO DAILY #90 cap 10/08/18 11/26/18 Rx release diazepam 10 mg tablet 10 mg PO BID PRN #90 tab 11/01/18 11/26/18 Rx nitrofurantoin macrocrystal 100 mg 100 mg PO BID #20 cap 11/19/18 11/26/18 Rx capsule ondansetron HCl 4 mg tablet 4 mg PO Q6H PRN #30 tab 11/19/18 11/26/18 Rx Allergies Allergy/AdvReac Type Severity Reaction Status Date / Time No Known Drug Allergies Allergy Verified 11/26/18 08:46 Review of Systems Constitutional Constitutional: Reports system reviewed and no additional complaints, except as documented Eyes Eyes: Reports system reviewed; no additional complaints, except as documented ENT Ears, Nose, Mouth, and Throat: Yes system reviewed; no additional complaints, except as documented Cardiovascular Cardiovascular: Reports system reviewed; no additional complaints, except as documented Respiratory Respiratory: Reports system reviewed and no additional complaints, except as documented Gastrointestinal Gastrointestinal: Reports abdominal pain, Reports change in bowel habits, Reports constipation, Reports nausea and Reports vomiting Genitourinary Genitourinary: Reports system reviewed and no additional complaints, except as documented Musculoskeletal Musculoskeletal: Reports system reviewed; no additional complaints, except as documented Integumentary/Breasts Skin/Breast: Reports system reviewed and no additional complaints, except as documented Neurologic Neurologic: Reports system reviewed and no additional complaints, except as documented Psychiatric Psychiatric: Reports other Comments: Chronic anxiety Endocrine Endocrine: Reports system reviewed and no additional complaints, except as documented Hematologic/Lymphatic Hematologic/Lymphatic: Reports system reviewed and no additional complaints, except as documented Allergic/Immunologic Allergic/Immunologic: Reports system reviewed and no additional complaints, except as documented Exam Vital Signs (past 8 hours): - 11/26/18 06:45 11/26/18 07:44 11/26/18 08:41 Temperature 97.5 F L 97.3 F L 97.3 F L Pulse Rate 87 72 72 Respiratory Rate 20 16 16 Blood Pressure 176/72 H 155/78 H 155/78 H Pulse Oximetry 100 100 100 11/26/18 09:37 Temperature Pulse Rate 73 Respiratory Rate 16 Blood Pressure 136/78 Pulse Oximetry Oxygen Delivery Method Room Air Oxygen Flow Rate 0 Narrative Exam Narrative: Gen.: Patient examined hospital bed initially she is on the commode. She she is resting quietly and appears in no distress moves very slowly however. Skin: Warm well perfused. No prominent lesions. Nonicteric. HEENT: PERRL., normal EOM, external ears canals TMs normal, nasal mucosa normal and midline septum, oropharynx without lesions. Neck: Trachea midline. Thyroid nontender and not enlarged. Carotids without bruits. No lymphadenopathy Back: No obvious deformity or tenderness. Chest: Clear to P&A. Symmetric. CV: RRR no murmur or gallop. No JVD. Abdomen: [Decreased bowel sounds apparent. Generalized tenderness periumbilical area primarily also in the lower quadrants bilaterally no rebound no masses Neuro: Cranial nerves II through XII grossly intact. Sensory and motor exams intact. Gait normal. Mental status: Intact for screening Extremities: No cyanosis clubbing or edema Musculoskeletal: No gross deformities Lymphatics: Negative for lymphadenopathy, supraclavicular axillary or inguinal. He is she looks her usual anxious self Objective Labs Result Diagrams: 11/26/18 05:05 11/26/18 05:05 Labs: Laboratory Results - last 24 hr 11/26/18 11/26/18 11/26/18 05:05 05:05 05:05 WBC 10.0 RBC 4.66 Hgb 15.9 Hct 47.9 H MCV 102.9 H MCH 34.2 H MCHC 33.2 RDW 12.6 Plt Count 203 Neut % (Auto) 68.2 Lymph % (Auto) 23.4 L [place] % (Auto) 6.7 Eos % (Auto) 1.2 L Baso % (Auto) 0.5 Neut # (Auto) 6800 Lymph # (Auto) 2300 [place] # (Auto) 700 Eos # (Auto) 100 Baso # (Auto) 100 Sodium 142 Potassium 3.4 Chloride 103 Carbon Dioxide 27 BUN 21 H Creatinine 0.70 Estimated GFR > 60.0 BUN/Creatinine Ratio 30.0 H Glucose 119 H Lactate 1.6 Calcium 10.0 Total Bilirubin 0.7 AST 28 ALT 19 Alkaline Phosphatase 112 Total Protein 7.5 Albumin 4.6 Globulin 2.9 Albumin/Globulin Ratio 1.6 Lipase 3540 H D Labs as above is noted of significance she has normal white blood cell count lipase however is 3540. CT is done that shows constipation as well as some edema of the mucosa but has less so than last CT a week ago Assessment & Plan Assessment & Plan narrative: 1. Patient with acute pancreatitis no obvious explanation. Given that there is no obvious explanation may well had ache gallstone that has passed. Triglycerides are normal. Nondrinker. No medications that she will be taking his contribute to this. Question remains whether not it is at all related to the mucosa edema that is seen on her CTs. 2. Mucosa edema the intestinal wall. Consistent with some sort of int intestinal enteritis. Discusses with surgeon on-call. Who recommended treating of the pancreatitis 1st and colonoscopy more electively at a later date. 3. Chronic anxiety ongoing issue resume venlafaxine when she is taking fluids adequately Will treat her nausea and pain medicine as needed. Anticipate probably 2-3 more days hospitalization Quality VTE Deep Vein Thrombosis/Pulmonary Embolism Present on Admission: No
[2018-11-26] MEDS: POLYETHYLENE GLYCOL 3350 17 GM POWD.PACK PO ×2 (13:39→22:31)
[2018-11-27] VITALS (9 sets, daily range): BP systolic 118–141; BP diastolic 63–81; PULSE 87–98; RESP 16–18; TEMP 37.3–37.5; O2SAT 93–98
[2018-11-27] MEDS: SODIUM CHLORIDE 0.9% 1,000 ML 150 ML IV ×3 (03:17→18:49)
[2018-11-27] MEDS: METOCLOPRAMIDE 10 MG/2 ML INJ 5 MG IV ×4 (05:22→23:39)
--- NOTE | 2018-11-27 08:56 | PM.PN.1 ---
Subjective Subjective Date Patient Seen: 11/27/18 Time Patient Seen: 08:56 Interval history: Pancreatitis. Patient feeling better tolerating clear liquids well. Wanting to advance diet. Minimal nausea. No vomiting. Still having fair amount of stool. Apparently had a fair amount of blood in the last stool. Minimal abdominal pain no urinary symptoms Exam Vital Signs (past 8 hours): - 11/27/18 05:21 Temperature 99.3 F Pulse Rate 88 Respiratory Rate 16 Blood Pressure 118/63 Pulse Oximetry 96 Oxygen Delivery Method Room Air Oxygen Flow Rate 0 Narrative Exam Narrative: Patient is sitting in her bedside chair having finished her clear liquid breakfast. She actually looks still uncomfortable. Abdominal exam decreased bowel sounds. Tenderness has decreased significantly in the periumbilical area no midepigastric pain no pelvic pain Objective Labs Result Diagrams: 11/26/18 05:05 11/26/18 05:05 Labs: Labs from today is pending Assessment & Plan Assessment & Plan narrative: Acute pancreatitis better symptomatically. Unclear still no clear etiology. Question was raise is perhaps it was secondary from Macrodantin which has been discontinued. She is tolerating clear liquids to advance her diet to full liquids and then proceed accordingly. As per surgical consult patient need colonoscopy sometime later once back otitis cell down for that she has had blood in stool implies her still some active colitis yet to be determined anticipate probably 2 more days of hospitalization Quality VTE Deep Vein Thrombosis/Pulmonary Embolism Present on Admission: No
[2018-11-27 09:11] LABS: Add Manual Diff / Slide Review NO; Basophils Absolute Auto 0 /uL (0-100); Basophils Percent Auto 0.4 % (0-2); Eosinophils Absolute Auto 0 /uL (0-450); Eosinophils Percent Auto 0.2 % (2-4); Hematocrit 41.6 % (36-46); Hemoglobin 13.7 g/dL (12.0-16.0); Lymphocytes Absolute Auto 1300 /uL (1100-4500); Lymphocytes Percent Auto 12.7 % (25-40); Mean Corpuscular HGB Conc 32.9 % (30-36); Mean Corpuscular Volume 103.2 fL (80-100); Monocytes Absolute Auto 700 /uL (0-900); Monocytes Percent Auto 6.4 % (3-14); Neutrophils Absolute Auto 8200 /uL (1500-7000); Neutrophils Percent Auto 80.3 % (50-75); Platelet Count 169 X10^3/uL (150-400); Red Blood Cell Count 4.03 X10^6/uL (4.0-5.2); Red Cell Distribution Width 12.8 % (11.6-14.8); White Blood Cell Count 10.2 X10^3/uL (4.5-11.0)
[2018-11-27 09:22] LABS: BUN Creatinine Ratio 14.3 (6-22); Blood Urea Nitrogen 10 mg/dL (7-17); Calcium 8.4 mg/dL (8.4-10.2); Carbon Dioxide 25 mmol/L (22-32); Chloride 108 mmol/L (98-107); Estimated Glomerular Filt Rate > 60.0 mL/min (>60); Glucose 138 mg/dL (80-110); HEMOLYSIS < 15 (0-50); Lipase 34 U/L (23-300); Potassium 3.2 mmol/L (3.4-5.1); Sodium 141 mmol/L (137-145)
--- NOTE | 2018-11-27 09:37 | P.PN_ITS ---
Subjective Subjective Date Patient Seen: 11/27/18 Time Patient Seen: 09:38 Interval history: Patient has improvement in symptoms with less abdominal pain no nausea or vomiting. Tolerating a clear liquid diet and has had several large bowel movements. Exam Vital Signs (past 8 hours): - 11/27/18 05:21 11/27/18 08:00 Temperature 99.3 F 99.5 F Pulse Rate 88 87 Respiratory Rate 16 16 Blood Pressure 118/63 124/75 Pulse Oximetry 96 98 Oxygen Delivery Method Room Air Oxygen Flow Rate 0 Narrative Exam Narrative: Patient has low-grade fever, Patient resting in bed with mild lower abdominal pain. Tolerating a clear liquid diet with no vomiting. Abdomen is not distended. No upper abdominal tenderness Mild lower abdominal tenderness both left and right. No masses. Objective Labs Result Diagrams: 11/27/18 08:57 11/27/18 08:57 Labs: Laboratory Results - last 24 hr 11/27/18 11/27/18 08:57 08:57 WBC 10.2 RBC 4.03 Hgb 13.7 Hct 41.6 MCV 103.2 H MCH 34.0 MCHC 32.9 RDW 12.8 Plt Count 169 Neut % (Auto) 80.3 H Lymph % (Auto) 12.7 L [place] % (Auto) 6.4 Eos % (Auto) 0.2 L Baso % (Auto) 0.4 Neut # (Auto) 8200 H Lymph # (Auto) 1300 [place] # (Auto) 700 Eos # (Auto) 0 Baso # (Auto) 0 Sodium 141 Potassium 3.2 L Chloride 108 H Carbon Dioxide 25 BUN 10 Creatinine 0.70 Estimated GFR > 60.0 BUN/Creatinine Ratio 14.3 Glucose 138 H Calcium 8.4 Lipase 34 D Assessment & Plan Assessment & Plan narrative: Patient is slightly febrile with minimal abdominal pain. No further nausea or vomiting. Lipase [place] [address] hemoglobin normal at 13.7. Impression is that of pancreatitis has resolved. I still think patient should have a colonoscopy at some point in the next few weeks. She could be prepped and this could be done as an outpatient. I have examined the endoscopy schedule for the next 48 hours and the schedule is absolutely full. Plan is to advance her diet to full liquids today. She has slight hypokalemia and we can supplement with oral potassium. Quality VTE Deep Vein Thrombosis/Pulmonary Embolism Present on Admission: No
[2018-11-27] MEDS: ENOXAPARIN 40 MG/0.4 ML SYRINGE SUBCUT (09:41)
--- NOTE | 2018-11-27 12:49 | CM.DPC ---
DCP: continued: case received, EMR reviewed. Discussed in Team Rounds. Dr. Singh and consulting surgeon Dr. Benton both saw pt this morning. Their documentation indicates pt is improving, will go from clears to full liquids today, labs have returned to WNL. Dr. Benton does note pt continues with a slight fever. Dr. Benton is recommending a colonoscopy at a later date in the OUTPT setting. Will check in again tomorrow and follow prn. P: at this point, remains home when medically stable for same with prn spouse support.
[2018-11-27] MEDS: POTASSIUM CHLORIDE 20 MEQ/15 ML UDC PO ×2 (14:11→16:11)
[2018-11-27] MEDS: VENLAFAXINE 37.5 MG TABLET 75 MG PO (16:11)
[2018-11-27] MEDS: diazePAM 5 MG TABLET 10 MG PO (16:11)
--- NOTE | 2018-11-27 18:18 | PC.NURSE ---
Assumed care of pt at 1500. Pt sleeping during bedside hand-off. Awakens to voice. Reports she would like to be left alone to rest. Up to Bathroom. steady on feet. Erythema to luz maria area from loose stools; barrier cream applied. Urine specimen sent for UA, Pt aware stool specimen is needed for testing. Student nurse participating with care including assessments and medication administrations. All care completed under the supervision of this RN.
[2018-11-27 21:22] LABS: Campylobacter Not Detected (Not Detect); Clostridium difficile toxin AB Not Detected (Not Detect); Enteroaggregative E.coli Not Detected (Not Detect); Enteropathogenic E.coli Not Detected (Not Detect); Enterotoxigenic E.coli It/st Not Detected (Not Detect); Plesiomonsa shigelloides Not Detected (Not Detect); Salmonella Not Detected (Not Detect); Shiga-like toxin-prod E.coli Not Detected (Not Detect); Vibrio Not Detected (Not Detect); Vibrio cholerae Not Detected (Not Detect); Yersinia enterocolitica Not Detected (Not Detect)
[2018-11-27 21:23] LABS: Adenovirus F 40/41 Not Detected (Not Detect); Astrovirus Not Detected (Not Detect); Cryptosporidium Not Detected (Not Detect); Cyclospora cayetanensis Not Detected (Not Detect); Entamoeba histolytica Not Detected (Not Detect); Giardia lamblia Not Detected (Not Detect); Norovirus GI/GII Not Detected (Not Detect); Rotavirus A Not Detected (Not Detect); Shigella/Enteroinvasive E.coli Not Detected (Not Detect)
[2018-11-28 04:25] VITALS: BP 143/73; PULSE 84; RESP 16; TEMP 37.1; O2SAT 95
[2018-11-28 05:23] LABS: Add Manual Diff / Slide Review NO; Basophils Absolute Auto 0 /uL (0-100); Basophils Percent Auto 0.4 % (0-2); Eosinophils Absolute Auto 0 /uL (0-450); Eosinophils Percent Auto 0.5 % (2-4); Hematocrit 37.3 % (36-46); Hemoglobin 12.4 g/dL (12.0-16.0); Lymphocytes Absolute Auto 1400 /uL (1100-4500); Lymphocytes Percent Auto 15.3 % (25-40); Mean Corpuscular HGB Conc 33.1 % (30-36); Mean Corpuscular Volume 102.7 fL (80-100); Monocytes Absolute Auto 700 /uL (0-900); Monocytes Percent Auto 7.6 % (3-14); Neutrophils Absolute Auto 7000 /uL (1500-7000); Neutrophils Percent Auto 76.2 % (50-75); Platelet Count 125 X10^3/uL (150-400); Red Blood Cell Count 3.63 X10^6/uL (4.0-5.2); Red Cell Distribution Width 12.7 % (11.6-14.8); White Blood Cell Count 9.2 X10^3/uL (4.5-11.0)
[2018-11-28 05:27] LABS: BUN Creatinine Ratio 8.3 (6-22); Blood Urea Nitrogen 5 mg/dL (7-17); Carbon Dioxide 25 mmol/L (22-32); Chloride 110 mmol/L (98-107); Estimated Glomerular Filt Rate > 60.0 mL/min (>60); Glucose 98 mg/dL (80-110); HEMOLYSIS < 15 (0-50); Lipase 59 U/L (23-300); Potassium 3.6 mmol/L (3.4-5.1); Sodium 140 mmol/L (137-145)
[2018-11-28] MEDS: METOCLOPRAMIDE 10 MG/2 ML INJ 5 MG IV (06:50)
[2018-11-28] MEDS: SODIUM CHLORIDE 0.9% 1,000 ML 150 ML IV (06:50)
[2018-11-28 08:00] VITALS: BP 123/67; PULSE 76; RESP 16; TEMP 36.3; O2SAT 98
[2018-11-28] MEDS: POTASSIUM CHLORIDE 20 MEQ/15 ML UDC PO (08:27)
[2018-11-28] MEDS: ENOXAPARIN 40 MG/0.4 ML SYRINGE SUBCUT (08:28)
[2018-11-28] MEDS: VENLAFAXINE 37.5 MG TABLET 75 MG PO (08:28)
[2018-11-28] MEDS: diazePAM 5 MG TABLET 10 MG PO (08:40)
--- NOTE | 2018-11-28 09:31 | P.PN_ITS ---
Subjective Subjective Date Patient Seen: 11/28/18 Time Patient Seen: 09:31 Interval history: Patient has daily improvements with very minimal abdominal complaints today. She is having bowel movements in fact having some diarrhea today. No nausea or vomiting. Exam Vital Signs (past 8 hours): - 11/28/18 04:25 11/28/18 08:00 Temperature 98.8 F 97.4 F L Pulse Rate 84 76 Respiratory Rate 16 16 Blood Pressure 143/73 H 123/67 Pulse Oximetry 95 98 Oxygen Delivery Method Room Air Oxygen Flow Rate 0 Narrative Exam Narrative: Patient is afebrile . Abdomen not distended. Minimal abdominal tenderness both lower quadrants. No masses are palpated. Objective Labs Result Diagrams: 11/28/18 05:08 11/28/18 05:08 Labs: Laboratory Results - last 24 hr 11/27/18 11/27/18 11/28/18 14:14 19:35 05:08 WBC 9.2 RBC 3.63 L Hgb 12.4 Hct 37.3 MCV 102.7 H MCH 34.0 MCHC 33.1 RDW 12.7 Plt Count 125 L Neut % (Auto) 76.2 H Lymph % (Auto) 15.3 L [place] % (Auto) 7.6 Eos % (Auto) 0.5 L Baso % (Auto) 0.4 Neut # (Auto) 7000 Lymph # (Auto) 1400 [place] # (Auto) 700 Eos # (Auto) 0 Baso # (Auto) 0 Sodium Potassium Chloride Carbon Dioxide BUN Creatinine Estimated GFR BUN/Creatinine Ratio Glucose Calcium Lipase Stl C. cayetanensis PCR Not detected Stool Rotavirus (PCR) Not detected Stool Adenovirus (PCR) Not detected Stool Astrovirus (PCR) Not detected Stool Cryptosporidium PCR Not detected Stl E.coli Shiga Tox PCR Not detected St Sh/Enteroin Ecoli PCR Not detected Stool E coli O157 PCR Not Reportable Stl Enterotoxigenic E PCR Not detected Stool EPEC (PCR) Not detected Stl E. histolytica PCR Not detected Stool Giardia Lamblia PCR Not detected Stl P. shigelloides PCR Not detected St Y.enterocolitica PCR Not detected Stool Vibrio (PCR) Not detected Stl Vibrio cholerae PCR Not detected Stl Enteroaggr Ecoli PCR Not detected Stl Norovirus GI/GII PCR Not detected Campylobacter (PCR) Not detected C. difficile Tox (PCR) Not detected Cancelled Salmonella (PCR) Not detected 11/28/18 05:08 WBC RBC Hgb Hct MCV MCH MCHC RDW Plt Count Neut % (Auto) Lymph % (Auto) [place] % (Auto) Eos % (Auto) Baso % (Auto) Neut # (Auto) Lymph # (Auto) [place] # (Auto) Eos # (Auto) Baso # (Auto) Sodium 140 Potassium 3.6 Chloride 110 H Carbon Dioxide 25 BUN 5 L Creatinine 0.60 Estimated GFR > 60.0 BUN/Creatinine Ratio 8.3 Glucose 98 Calcium 8.0 L Lipase 59 D Stl C. cayetanensis PCR Stool Rotavirus (PCR) Stool Adenovirus (PCR) Stool Astrovirus (PCR) Stool Cryptosporidium PCR Stl E.coli Shiga Tox PCR St Sh/Enteroin Ecoli PCR Stool E coli O157 PCR Stl Enterotoxigenic E PCR Stool EPEC (PCR) Stl E. histolytica PCR Stool Giardia Lamblia PCR Stl P. shigelloides PCR St Y.enterocolitica PCR Stool Vibrio (PCR) Stl Vibrio cholerae PCR Stl Enteroaggr Ecoli PCR Stl Norovirus GI/GII PCR Campylobacter (PCR) C. difficile Tox (PCR) Salmonella (PCR) Assessment & Plan Assessment & Plan narrative: Patient has recovered from pancreatitis with 2 normal lipase determinations both yesterday and today. Patient's constipation has resolved. Plan is to stop her IV fluids advance her diet ambulator in the halls. Patient could probably be discharged soon. I will sign off. Patient should have a colonoscopy in the next few weeks as an outpatient. Quality VTE Deep Vein Thrombosis/Pulmonary Embolism Present on Admission: No
--- NOTE | 2018-11-28 11:08 | P.DS_ITS ---
History of Present Illness History of Present Illness Chief complaint: terrible stomach cramping vomiting no bowel moving Narrative: Pancreatitis. Patient is admitted this morning through the emergency room. She was awakened early this morning approximately 5 4:00 a.m. with severe abdominal pain pain progressed during the course of the morning. She has some nausea and vomiting at that time. Patient has history of bowel obstructions in the past any get an 2 operations. Concerned about same she came to the emergency room for evaluation. When patient went to bed SI she is feeling fine and in retrospect no prodrome of symptoms. She has not been sick whatsoever she went to work yesterday. Her other issue has been cook constipation is been several days perhaps even up to 2 weeks for she had a bowel movement. She had an evaluation done as an outpatient with with [facility] CT of the abdomen that showed some thickening of the small bowel mucosa large bowel. Consistent with some sort enteritis. She had m bhavya a referral to the general surgeons here locally which is not been completed. Concern being she has some sore enteritis and may need colonoscopy referral to this. Meanwhile patient denies any alcohol. She has no high triglycerides. No history of pancreatitis in the past and no history of gallstones. Discharge Providers Provider Date of admission: 11/26/18 06:30 Discharge Date: 11/28/18 Primary care physician: Douglas Singh MD Consults: 11/26/18 06:24 Consult to Physician Routine Comment: Consulting Provider: Douglas Singh Reason for consultation: admission Has provider been notified: No 11/26/18 09:01 Consult to Physician Routine Comment: Consulting Provider: Catrachito Benton Reason for consultation: abn ct Has provider been notified: Yes Discharge provider: Douglas Singh MD Summary Hospital Course Discharge Diagnosis: 1. Acute pancreatitis. 2. Enteritis 3. Depression stable. 4. Anxiety stable. 5. Urinary tract infection resolved Hospital Course: Patient with the med been for abdominal pain she was found to have elevated lipase. During the course of her stay lipase normalized 24 hours. She was having fair amount of nausea nose resolved. She is tolerating full liquid diet without difficulty. She was having fair amount of loose stools. Early during the course all to say some of the stools for a bloody tinge. Patient will be seen as an outpatient for follow-up for pancreatitis. Additionally she will be referred to the general surgeons to have a colonoscopy sometime within the next month I presume for evaluation of her in apparent enteritis. Status at Discharge Cognitive/behavioral status at discharge: oriented and at baseline, oriented Functional status at discharge: independent ambulation Overall status at discharge: patient is progressing back to baseline Exam Vital Signs (past 8 hours): - 11/28/18 04:25 11/28/18 08:00 Temperature 98.8 F 97.4 F L Pulse Rate 84 76 Respiratory Rate 16 16 Blood Pressure 143/73 H 123/67 Pulse Oximetry 95 98 Oxygen Delivery Method Room Air Oxygen Flow Rate 0 Objective Labs Result Diagrams: 11/28/18 05:08 11/28/18 05:08 Labs: Laboratory Results - last 24 hr 11/27/18 11/27/18 11/28/18 14:14 19:35 05:08 WBC 9.2 RBC 3.63 L Hgb 12.4 Hct 37.3 MCV 102.7 H MCH 34.0 MCHC 33.1 RDW 12.7 Plt Count 125 L Neut % (Auto) 76.2 H Lymph % (Auto) 15.3 L [place] % (Auto) 7.6 Eos % (Auto) 0.5 L Baso % (Auto) 0.4 Neut # (Auto) 7000 Lymph # (Auto) 1400 [place] # (Auto) 700 Eos # (Auto) 0 Baso # (Auto) 0 Sodium Potassium Chloride Carbon Dioxide BUN Creatinine Estimated GFR BUN/Creatinine Ratio Glucose Calcium Lipase Stl C. cayetanensis PCR Not detected Stool Rotavirus (PCR) Not detected Stool Adenovirus (PCR) Not detected Stool Astrovirus (PCR) Not detected Stool Cryptosporidium PCR Not detected Stl E.coli Shiga Tox PCR Not detected St Sh/Enteroin Ecoli PCR Not detected Stool E coli O157 PCR Not Reportable Stl Enterotoxigenic E PCR Not detected Stool EPEC (PCR) Not detected Stl E. histolytica PCR Not detected Stool Giardia Lamblia PCR Not detected Stl P. shigelloides PCR Not detected St Y.enterocolitica PCR Not detected Stool Vibrio (PCR) Not detected Stl Vibrio cholerae PCR Not detected Stl Enteroaggr Ecoli PCR Not detected Stl Norovirus GI/GII PCR Not detected Campylobacter (PCR) Not detected C. difficile Tox (PCR) Not detected Cancelled Salmonella (PCR) Not detected 11/28/18 05:08 WBC RBC Hgb Hct MCV MCH MCHC RDW Plt Count Neut % (Auto) Lymph % (Auto) [place] % (Auto) Eos % (Auto) Baso % (Auto) Neut # (Auto) Lymph # (Auto) [place] # (Auto) Eos # (Auto) Baso # (Auto) Sodium 140 Potassium 3.6 Chloride 110 H Carbon Dioxide 25 BUN 5 L Creatinine 0.60 Estimated GFR > 60.0 BUN/Creatinine Ratio 8.3 Glucose 98 Calcium 8.0 L Lipase 59 D Stl C. cayetanensis PCR Stool Rotavirus (PCR) Stool Adenovirus (PCR) Stool Astrovirus (PCR) Stool Cryptosporidium PCR Stl E.coli Shiga Tox PCR St Sh/Enteroin Ecoli PCR Stool E coli O157 PCR Stl Enterotoxigenic E PCR Stool EPEC (PCR) Stl E. histolytica PCR Stool Giardia Lamblia PCR Stl P. shigelloides PCR St Y.enterocolitica PCR Stool Vibrio (PCR) Stl Vibrio cholerae PCR Stl Enteroaggr Ecoli PCR Stl Norovirus GI/GII PCR Campylobacter (PCR) C. difficile Tox (PCR) Salmonella (PCR) Discharge Plan Discharge Plan Patient Disposition: Home Discharge comment: Soft diet Discharge Med Rec/Prescriptions Prescriptions: Continued clotrimazole-betamethasone [Lotrisone] 1-0.05 % cream 1 applictn Topical BID Qty: 45 RF: 2 omeprazole 20 mg capsule,delayed release(DR/EC) 20 mg PO DAILY Qty: 90 RF: 1 diazepam [Valium] 10 mg tablet 10 mg PO BID PRN (Reason: anxiety) Qty: 90 RF: 0 nitrofurantoin macrocrystal 100 mg capsule 100 mg PO BID Qty: 20 RF: 0 ondansetron HCl 4 mg tablet 4 mg PO Q6H PRN (Reason: nausea and vomiting) Qty: 30 RF: 0 aspirin 81 mg tablet,delayed release (DR/EC) 81 mg PO DAILY RF: 0 ibuprofen 200 mg tablet 400 mg PO BID RF: 0 pravastatin 20 mg tablet 40 mg PO DAILY Qty: 180 RF: 3 venlafaxine 37.5 mg tablet 75 mg PO DAILY Qty: 180 RF: 5 Follow up/Referrals: Douglas Singh MD [Primary Care Provider] - Provider Discharge Instructions Diet comment: Low residue Other treatments: appt w surgeon 2 weeks Visit Report/Discharge Packet Instructions: Acute Pancreatitis Discharge Data Primary Care Provider: Douglas Singh VTE Deep Vein Thrombosis/Pulmonary Embolism Present on Admission: No
--- NOTE | 2018-11-28 14:21 | CM.DPNOTE ---
DCPlanning: note: a check in now shows that both the surgeon and Dr. Singh were here and ok'd pt for discharge home and the outpt followups that were planned.
== END 2018-11-28 13:00 | disposition home or self-care (01) | DRG 440 ==
LOC: ED 05:34 → AC 06:31
PROVIDERS: Admitting Provider Family Medicine; Emergency Provider Emergency Medicine; PCP Family Medicine; Visit Provider Family Medicine
DX: K85.90 Acute pancreatitis without necrosis or infection, unspecified (principal); K59.09 Other constipation; F41.8 Other specified anxiety disorders; K52.9 Noninfective gastroenteritis and colitis, unspecified; E87.6 Hypokalemia; F32.9 Major depressive disorder, single episode, unspecified
CPT/HCPCS: 36415; 36592; 74177; 80048; 80053; 83605; 83690; 85025; 87086; 87507; 96361; 96372; 96374; 96375; 96376; 99223; 99231; 99232; 99238; 99282; 99284; J1170; J1650; J2405; J2765; Q9967

== ENCOUNTER 2019-01-20 09:02 | Day surgery (SDC) | payer MEDICARE, OTHER, SELFPAY ==
[2018-12-23 09:37] VITALS: BMI 24.2
[2019-01-20 09:28] VITALS: BP 137/81; PULSE 82; RESP 20; TEMP 36.2; O2SAT 95; BMI 24.3
[2019-01-20] MEDS: SODIUM CHLORIDE 0.9% 1,000 ML 200 ML IV (09:36)
--- NOTE | 2019-01-20 10:56 | PM.PREOP ---
Pre-operative Note Interval Note History & Physical reviewed/Exam performed by Physician: Yes Changes to H&P: No
[2019-01-20] MEDS: MIDAZOLAM 5 MG/5 ML VIAL IV (11:44)
[2019-01-20] MEDS: fentaNYL 250 MCG/5 ML INJ IV (11:44)
[2019-01-20 11:49] VITALS: BP 134/81; PULSE 72; RESP 20; TEMP 36.3; O2SAT 99
[2019-01-20 11:54] VITALS: BP 133/87; PULSE 74; RESP 16; O2SAT 100
[2019-01-20 11:59] VITALS: BP 130/79; PULSE 65; RESP 18; O2SAT 100
[2019-01-20 12:10] VITALS: BP 135/81; PULSE 61; RESP 16; TEMP 36.2; O2SAT 99
--- NOTE | 2019-01-20 17:04 | PM.OP.ENDO ---
Operative Date/Time/Diagnoses Date of procedure: 01/20/19 Time of procedure: 17:05 Pre-op diagnosis: blood per rectum Post-op diagnosis: same Procedure & Clinicians Study performed: Colonoscopy Same procedure as scheduled: Yes Indications: This is a 68-year-old female who was recently hospitalized found have guaiac-positive stool and a CT demonstrated some colonic wall thickening. Colonoscopy for diagnostic purpose was indicated. Surgeon: Joce Welch Procedure Notes SCOAP/Timeout: Performed Procedure in detail: Patient placed in left lateral decubitus position. Time out was performed. Procedural sedation was administered with Versed and Fentanyl. A rectal exam demonstrated no external hemorrhoids no internal masses. Colonoscopy scope was placed into the rectum and advanced through the colon to the cecum. The ileocecal valve was identified. The scope was then slowly withdrawn examining colon thoroughly in all directions. The colonoscopy was notable for the following 1. Diverticulosis 2. Grade 1-2 internal hemorrhoid 3. Quality of prep moderate Scope withdrawal time: 7 Sedation minutes: 23 Findings: diverticulosis and internal hemorrhoids Specimen(s): none sent Complications: none Impression: Diverticulosis Post-procedure Recommendations: Colonscopy in 10 years Disposition: same day surgery
== END 2019-01-20 12:34 | disposition home or self-care (01) ==
PROVIDERS: PCP Family Medicine; Visit Provider Surgery
PROC: 0DJD8ZZ Inspection of Lower Intestinal Tract, Via Natural or Artificial Opening Endoscopic (ICD-10-PCS; CPT 45378; principal; 2019-01-20 10:30)
DX: K62.5 Hemorrhage of anus and rectum (principal); K57.30 Diverticulosis of large intestine without perforation or abscess without bleeding; K64.0 First degree hemorrhoids
CPT/HCPCS: 45378; 99152; J2250; J3010

== ENCOUNTER → 2019-01-22 13:03 | Outpatient (CLI) | payer MEDICARE, OTHER, SELFPAY ==
[2018-12-23 09:37] VITALS: BMI 24.2
--- NOTE | 2019-01-22 13:06 | DI.RAD.S_ITS ---
PROCEDURE: XR FOOT RT MIN 3V INDICATIONS: Pain TECHNIQUE: 3 views of the foot were acquired. COMPARISON: [facility], , FOOT 3V RIGHT, 07/10/2011, 13:13. FINDINGS: Bones: No fractures or dislocations. There are mild degenerative changes of the right first metatarsophalangeal joint. There are irregular soft tissue calcifications along the lateral aspect of the right first metatarsophalangeal joint and distal lateral aspect of the distal left first metatarsal epiphysis. Soft tissues: No tibiotalar joint effusion. A thin linear radiopaque foreign body is identified within the distal right lower extremity soft tissues adjacent to the distal right tibial diaphysis. There is mild plantar calcaneal enthesopathy. IMPRESSION: Mild degenerative changes of the left first metatarsophalangeal joint, with laterally adjacent soft tissue calcifications (which may represent the sequela of chronic degenerative change, chronic post traumatic sequela, inflammatory arthropathy, or gout). Dictated by: José Miguel Ennis M.D. on 01/22/2019 at 17:05 Approved by: José Miguel Ennis M.D. on 01/22/2019 at 17:14
--- NOTE | 2019-01-22 13:06 | DI.RAD.S_ITS ---
PROCEDURE: XR FOOT LT MIN 3V INDICATIONS: Pain TECHNIQUE: 3 views of the foot were acquired. COMPARISON: [facility], , FOOT 3V RIGHT, 07/10/2011, 13:13. FINDINGS: Bones: No fractures or dislocations. No suspicious bony lesions. Minimal degenerative changes of the first and fifth interphalangeal joints and left first metatarsophalangeal joint. There are minimal degenerative changes of the midfoot. Soft tissues: No tibiotalar joint effusion. Mild plantar calcaneal spur noted. IMPRESSION: 1. Minimal degenerative changes of the left forefoot and midfoot. 2. Mild plantar calcaneal spur noted. Dictated by: José Miguel Ennis M.D. on 01/22/2019 at 16:52 Approved by: José Miguel Ennis M.D. on 01/22/2019 at 16:59
== END ==
PROVIDERS: PCP Family Medicine; Visit Provider Family Medicine
DX: M79.672 Pain in left foot (principal); M79.671 Pain in right foot; M77.32 Calcaneal spur, left foot; M77.31 Calcaneal spur, right foot
CPT/HCPCS: 73630

== ENCOUNTER → 2019-02-04 07:41 | Outpatient (CLI) | payer MEDICARE, OTHER, SELFPAY ==
[2018-12-23 09:37] VITALS: BMI 24.2
--- NOTE | 2019-02-04 | DI.MRI.S_ITS ---
PROCEDURE: MR FOOT RT WO CON INDICATIONS: Pain in right foot TECHNIQUE: Noncontrast sagittal T1 spin echo and T2 fast spin echo with fat saturation, long-axis T1 spin echo and T2 fast spin echo with fat saturation, short-axis T1 spin echo and T2 fast spin echo with fat saturation through the forefoot. COMPARISON: [facility], CR, XR FOOT LT MIN 3V, 01/22/2019, 13:03. [facility], CR, XR FOOT RT MIN 3V, 01/22/2019, 13:03. FINDINGS: Image quality: Excellent. Bones and joints: No bone marrow contusions or metatarsal stress fractures. There is mild marrow edema within the medial hallux sesamoid image 19/9 Mild first MTP degeneration. There is also first TMT and second TMT joint degeneration with subchondral cystic change and spurring No intraosseous lesions. Soft tissues: The visualized plantar foot muscles demonstrate normal signal and bulk. Visualized flexor and extensor tendons appear intact, without tenosynovitis. The distal insertions of the peroneus brevis and longus tendons appear intact. The principal Lisfranc ligament appears intact. No soft tissue ganglion cysts or bursal fluid collections. Sagittal images demonstrate no evidence for plantar plate tears. IMPRESSION: No evidence of stress fracture. Mild medial hallux sesamoid arthritis First MTP joint degeneration First and second TMT joint degeneration with subchondral cystic change Dictated by: Mj Tamayo M.D. on 02/04/2019 at 9:59 Approved by: Mj Tamayo M.D. on 02/04/2019 at 10:25
== END ==
PROVIDERS: PCP Family Medicine; Visit Provider Podiatrist
DX: M79.671 Pain in right foot (principal); M19.071 Primary osteoarthritis, right ankle and foot
CPT/HCPCS: 73718

== ENCOUNTER → 2019-12-12 07:04 | Outpatient (CLI) | payer MEDICARE, OTHER, SELFPAY ==
[2018-12-23 09:37] VITALS: BMI 24.2
[2019-12-12 08:39] LABS: Add Manual Diff / Slide Review NO; Basophils Absolute Auto 0 /uL (0-100); Basophils Percent Auto 0.8 % (0-2); Eosinophils Absolute Auto 200 /uL (0-450); Eosinophils Percent Auto 3.3 % (2-4); Hematocrit 41.6 % (36-46); Lymphocytes Absolute Auto 2200 /uL (1100-4500); Lymphocytes Percent Auto 41.7 % (25-40); Mean Corpuscular HGB Conc 33.5 % (30-36); Mean Corpuscular Hemoglobin 33.7 PG (26-34); Mean Corpuscular Volume 100.5 fL (80-100); Monocytes Absolute Auto 500 /uL (0-900); Neutrophils Absolute Auto 2400 /uL (1500-7000); Neutrophils Percent Auto 45.2 % (50-75); Platelet Count 186 X10^3/uL (150-400); Red Blood Cell Count 4.14 X10^6/uL (4.0-5.2); Red Cell Distribution Width 12.3 % (11.6-14.8); White Blood Cell Count 5.4 X10^3/uL (4.5-11.0)
[2019-12-12 09:16] LABS: Alanine Aminotransferase 13 IU/L (<35); Albumin Globulin Ratio 1.4 (1.0-2.8); Alkaline Phosphatase 98 U/L (38-126); Aspartate Aminotransferase 25 IU/L (14-36); Bilirubin Total 0.4 mg/dL (0.2-1.3); Blood Urea Nitrogen 20 mg/dL (7-17); Calcium 9.3 mg/dL (8.4-10.2); Carbon Dioxide 33 mmol/L (22-32); Chloride 107 mmol/L (98-107); Cholesterol 264 mg/dL (140-199); Estimated Glomerular Filt Rate > 60.0 mL/min (>60); Globulin 2.8 g/dL (1.7-4.1); Glucose 91 mg/dL (80-110); HDL Cholesterol 53 mg/dL (40-60); HEMOLYSIS < 15 (0-50); LDL Cholesterol Calculated 182 mg/dL (<100); Potassium 4.3 mmol/L (3.4-5.1); Sodium 141 mmol/L (137-145); Total Protein 6.8 g/dL (6.3-8.2); Triglycerides 145 mg/dL (35-150)
[2019-12-12 09:44] LABS: Thyroid Stimulating Hormone 3.59 uIU/mL (0.47-4.68)
== END ==
PROVIDERS: PCP Family Medicine; Referring Provider Family Medicine; Visit Provider Family Medicine
DX: E78.2 Mixed hyperlipidemia (principal)
CPT/HCPCS: 36415; 80053; 80061; 84443; 85025

== ENCOUNTER → 2020-03-19 15:52 | Outpatient (CLI) | payer MEDICARE, OTHER, SELFPAY ==
[2018-12-23 09:37] VITALS: BMI 24.2
--- NOTE | 2020-03-19 15:56 | DI.RAD.S_ITS ---
PROCEDURE: XR CHEST 2V INDICATIONS: cough TECHNIQUE: 2 views of the chest were acquired. COMPARISON: [facility], CT, CHEST ANGIO-PE, 10/04/2012, 10:55. Located [facility], CR, CHEST 1 VIEW, 08/17/2011, 8:37. FINDINGS: Surgical changes and devices: None. Lungs and pleura: Left basilar opacity may be infiltrate or atelectasis. Hyperinflation suggesting COPD. Lungs are clear. No pleural effusions or pneumothorax. Mediastinum: Mediastinal contours are normal. Heart size is normal. Bones and chest wall: No suspicious bony abnormalities. Soft tissues appear unremarkable. IMPRESSION: 1. Left basilar infiltrate or atelectasis. 2. Hyperinflation suggesting COPD. Dictated by: Paz Leavitt M.D. on 03/19/2020 at 16:24 Approved by: Paz Leavitt M.D. on 03/19/2020 at 16:26
== END ==
PROVIDERS: PCP Family Medicine; Referring Provider Family Medicine; Visit Provider Family Medicine
DX: R05 Cough (principal)
CPT/HCPCS: 71046

== ENCOUNTER → 2020-04-23 14:26 | Outpatient (CLI) | payer MEDICARE, OTHER, SELFPAY ==
[2018-12-23 09:37] VITALS: BMI 24.2
[2020-04-23 17:37] LABS: BUN Creatinine Ratio 15.4 (6-22); Blood Urea Nitrogen 16 mg/dL (7-17); Calcium 9.6 mg/dL (8.4-10.2); Carbon Dioxide 30 mmol/L (22-32); Chloride 105 mmol/L (98-107); Estimated Glomerular Filt Rate 52.4 mL/min (>60); Glucose 99 mg/dL (80-110); HEMOLYSIS < 15 (0-50); Potassium 3.9 mmol/L (3.4-5.1); Sodium 141 mmol/L (137-145)
== END ==
PROVIDERS: PCP Family Medicine; Referring Provider Family Medicine; Visit Provider Family Medicine
DX: E78.2 Mixed hyperlipidemia (principal)
CPT/HCPCS: 36415; 80048

== ENCOUNTER → 2020-04-28 11:01 | Outpatient (CLI) | payer MEDICARE, OTHER, SELFPAY ==
[2018-12-23 09:37] VITALS: BMI 24.2
--- NOTE | 2020-04-28 12:03 | DI.CT.S_ITS ---
PROCEDURE: CT CHEST W CON INDICATIONS: Chronic infiltrate and a smoker and chronic cough TECHNIQUE: After the administration of intravenous contrast, 5 mm thick sections acquired from the pulmonary apices to the posterior costophrenic angles. 1 mm axial lung, 5 mm thick coronal and sagittal reformats and 7 mm axial MIP were acquired. For radiation dose reduction, the following was used: automated exposure control, adjustment of mA and/or kV according to patient size. COMPARISON: [facility], CT, CT ABDOMEN PELVIS W CON, 11/17/2018, 2:48. [facility], CT, CT ABDOMEN PELVIS W CON, 11/26/2018, 5:03. FINDINGS: Image quality: Excellent. Scattered subsegmental atelectasis and/or scarring. No focal consolidation. No pleural effusions or pneumothorax. Airway thickening in keeping with nonspecific bronchitis and/or reactive airways disease. 2 mm left basilar pulmonary nodule image 211/2. Mediastinum: Heart size is normal. No pericardial effusion. No mediastinal or hilar adenopathy by size criteria. Thoracic aorta and central pulmonary arteries are normal in size. Esophagus is normal in caliber. No hiatal hernia. Bones and chest wall: No suspicious bony lesions. No vertebral body compression fractures. No axillary or supraclavicular adenopathy by size criteria. Thyroid gland negative . Abdomen: Visualized upper abdominal solid organs appear normal. Upper abdominal bowel loops are normal in caliber. IMPRESSION: Nonspecific 2 mm left basilar nodule. Recommend follow-up CT chest in one year. Dictated by: Mj Tamayo M.D. on 04/28/2020 at 12:49 Approved by: Mj Tamayo M.D. on 04/28/2020 at 13:07
== END ==
PROVIDERS: PCP Family Medicine; Referring Provider Family Medicine; Visit Provider Family Medicine
DX: R91.8 Other nonspecific abnormal finding of lung field (principal); R05 Cough; F17.200 Nicotine dependence, unspecified, uncomplicated
CPT/HCPCS: 71260; Q9967

== ENCOUNTER → 2020-10-28 10:49 | Outpatient (CLI) | payer MEDICARE, OTHER, SELFPAY ==
[2018-12-23 09:37] VITALS: BMI 24.2
--- NOTE | 2020-10-28 10:54 | DI.CT.S_ITS ---
PROCEDURE: CT CHEST WO CON INDICATIONS: Follow-up lung nodule TECHNIQUE: Noncontrast axial images acquired from the pulmonary apices to the posterior costophrenic angles. 8 mm thick axial MIP and 5 mm coronal and sagittal reformats were then acquired. A low radiation dose technique was utilized. COMPARISON: [facility], CT, CHEST ANGIO-PE, 10/04/2012, 10:55. FINDINGS: Image quality: Diagnostic, given the low radiation dose technique. Lungs and pleura: No new or enlarging pulmonary nodules. Left lower lobe pulmonary nodule measuring 0.2 cm, (3/216), unchanged since 2013 suggesting a benign etiology. No significant acute airspace opacity. Minimal bronchial wall thickening. Central airways are clear. No pleural effusion. No pneumothorax. Mediastinum: Heart size is normal. Trace pericardial fluid. Prominent precarinal node measuring 0.8 cm, (2/25), similar dating back to 2013. Thoracic aorta and central pulmonary arteries are normal in size. Mild calcified plaque in the aortic arch. Esophagus is normal in caliber. Small hiatal hernia. Bones and chest wall: No suspicious bony lesions. No vertebral body compression fractures. No axillary or supraclavicular adenopathy by size criteria. Thyroid gland is unremarkable. Abdomen: Visualized upper abdomen solid organs and bowel loops appear normal in the absence of contrast. IMPRESSION: 1. No new or enlarging pulmonary nodules. Small pulmonary nodule in the left lower lobe is unchanged since 2013 suggesting a benign etiology. 2. No acute airspace opacity. Fleischner Society criteria for SOLID lung nodule followup. Nodule size (mm)Low-risk patientHigh-risk patient<6 (single or multiple)No routine followup.Optional CT at 12 months. 6-8 (single or multiple)CT at 6-12 months, then optional CT at 18-24 mo.CT at 6-12 months, then CT at 18-24 months. >8 (single)CT at 3 months, PET-CT, or biopsy. Same as for low-risk pts. >8 (multiple)CT at 3-6 months, then optional CT at 18-24 mo.CT at 3-6 months, then CT at 18-24 months. Fleischner Society criteria for SUB-SOLID lung nodule followup. Solitary pure ground-glass nodules<6 mm (ground glass or part solid)No followup needed. 6 mm or larger (ground glass)CT at 6-12 months to confirm persistence, then CT every 2 years until 5 years.6 mm or larger (part solid)CT at 3-6 months to confirm persistence, then annual CT until 5 years if unchanged and solid component remains <6 mm. Multiple sub-solid nodules<6 mmCT at 3-6 months, then CT consider at 2 & 4 years for high risk patients. [address] at 3-6 months. Subsequent management based on most suspicious lesions. Recommendations do not apply to lung cancer screening, patients with immunosuppression, or patients with known primary cancer. Dictated by: Malcom Alegre M.D. on 10/28/2020 at 13:41 Approved by: Malcom Algere M.D. on 10/28/2020 at 13:51
[2020-10-28 12:14] LABS: Alanine Aminotransferase 19 IU/L (<35); Albumin 3.9 g/dL (3.5-5.0); Albumin Globulin Ratio 1.4 (1.0-2.8); Alkaline Phosphatase 83 U/L (38-126); Aspartate Aminotransferase 34 IU/L (14-36); BUN Creatinine Ratio 15.4 (6-22); Bilirubin Total 0.4 mg/dL (0.2-1.3); Blood Urea Nitrogen 12 mg/dL (7-17); Calcium 9.3 mg/dL (8.4-10.2); Carbon Dioxide 30 mmol/L (22-32); Chloride 107 mmol/L (98-107); Estimated Glomerular Filt Rate > 60.0 mL/min (>60); Globulin 2.8 g/dL (1.7-4.1); Glucose 78 mg/dL (80-110); HEMOLYSIS < 15 (0-50); Potassium 3.8 mmol/L (3.4-5.1); Sodium 142 mmol/L (137-145); Total Protein 6.7 g/dL (6.3-8.2)
== END ==
PROVIDERS: PCP Registered Nurse; Referring Provider Family Medicine; Visit Provider Family Medicine
DX: R91.1 Solitary pulmonary nodule (principal); R79.89 Other specified abnormal findings of blood chemistry
CPT/HCPCS: 36415; 71250; 80053

== ENCOUNTER 2020-12-06 21:32 | Emergency (ER) | payer MEDICARE, OTHER, SELFPAY ==
[2018-12-23 09:37] VITALS: BMI 24.2
[2020-12-06 21:43] VITALS: BP 197/108; PULSE 89; RESP 18; TEMP 37.2; O2SAT 99
--- NOTE | 2020-12-06 22:02 | ED_ITS ---
HPI - Abdominal Pain General Chief Complaint: Abdominal Pain Stated Complaint: BOWEL OBSTRUCTION ABD PAIN Time Seen by Provider: 12/06/20 21:44 Source: patient Mode of arrival: Ambulatory History of Present Illness HPI narrative: 70-year-old woman with history of COPD, depression and anxiety who presents with increasing left lower abdominal pain. She has not had a bowel movement in 2-3 days and had taken some Dulcolax. She was concerned that the pain was increasing after she had dinner this evening. She denies any fevers, cough, chills. No palpitations or chest pain. No headaches or neurologic complaints. No dysuria. Related Data Home Medications Medication Instructions Recorded Confirmed ibuprofen 200 mg tablet 400 mg PO BID 01/02/18 11/24/20 Previous Rx's Medication Instructions Recorded venlafaxine 37.5 mg tablet 112.5 mg PO DAILY #180 tab 12/16/19 albuterol sulfate 90 mcg/actuation 2 puff INHALATION Q6H PRN #18 g 10/28/20 aerosol inhaler (ProAir HFA) fluticasone 55 mcg-salmeterol 14 1 inh INHALATION BID #1 ea 11/12/20 mcg/actuation breath activated powder diazepam 10 mg tablet See Rx Instructions .ROUTE 11/15/20 .COMPLEX #90 tab doxycycline hyclate 100 mg capsule 100 mg PO BID #14 cap 11/24/20 omeprazole 20 mg capsule,delayed 20 mg PO DAILY #90 cap 11/24/20 release prednisone 20 mg tablet 40 mg PO DAILY #10 tab 11/24/20 Allergies Allergy/AdvReac Type Severity Reaction Status Date / Time No Known Drug Allergies Allergy Verified 11/24/20 10:58 Review of Systems Review of Systems Narrative: Remainder of complete review of systems is otherwise unremarkable except for that included in the HPI. Patient History Medical History Acne (1963) Anxiety Cataract (2014) Chicken pox Chronic cough Chronic cough Depression Discomfort of right hip DVT (deep venous thrombosis) (1997) Femoral-femoral bypass graft thrombosis, left (1998) Greater trochanteric bursitis of left hip Lung nodule Measles Mumps Plantar warts (1974) Seborrheic keratosis Substance abuse Surgical History Anesthesia History of cataract removal with insertion of prosthetic lens (01/2015) History of gynecologic surgery (1975) History of hip replacement (2012) History of intestinal surgery (05/1996) History of intestinal surgery (10/1996) History of knee surgery History of partial knee replacement (2005) History of tonsillectomy (1959) History of vein stripping (11/1997) Status post appendectomy (1980) Status post delivery (1983) Status post delivery (1985) Status post LASIK surgery (2000) Family History Father Lung cancer Heart disease High cholesterol Mother Lung cancer Brother Heart attack Grandmother Heart disease Social History household members: spouse Smoking Status: Former smoker Smoking Status: Former smoker alcohol intake frequency: 0-2 drinks per day Substance Use Type: does not use Exam Narrative Exam Narrative: General: Healthy appearing, in no acute distress. Able to give a complete and coherent history. Well-nourished well-developed HEENT: Moist mucous membranes, normal sclera with reactive pupils, Respiratory: Lungs are clear to auscultation, no wheezing no rales no rhonchi. Full and symmetrical air movement Cardiac: Regular rate and rhythm no murmurs no bruits Abdomen: Soft, nontender, good bowel tones, no flank pain Skin: Warm and dry, no rashes Neurologic: Grossly neurologically intact with no obvious asymmetries or abnormalities Extremities: No trauma, well perfused Psych: Cooperative, appropriate insight and affect Initial Vital Signs Initial Vital Signs: Vital Signs Temperature 98.9 F 12/06/20 21:43 Pulse Rate 89 12/06/20 21:43 Respiratory Rate 18 12/06/20 21:43 Blood Pressure 197/108 H 12/06/20 21:43 Pulse Oximetry 99 12/06/20 21:43 Course Orders Ordered: ED Orders 12/06/20 22:28 Complete Blood Count AUTO DIFF Stat 12/06/20 23:05 Comprehensive Metabolic Panel Stat Lipase Stat Vital Signs Vital signs: Vital Signs - 8 hr 12/06/20 21:43 Temperature 98.9 F Pulse Rate 89 Respiratory Rate 18 Blood Pressure 197/108 H Pulse Oximetry 99 MDM - Abdominal Pain Lab Data Result diagrams: 12/06/20 22:28 12/06/20 23:05 Labs: Lab Results 12/06/20 12/06/20 Range/Units 22:28 23:05 WBC 8.5 (4.5-11.0) X10^3/uL RBC 4.72 (4.0-5.2) X10^6/uL Hgb 15.6 (12.0-16.0) g/dL Hct 47.4 H (36-46) % MCV 100.6 H (80-100) fL MCH 33.0 (26-34) PG MCHC 32.8 (30-36) % RDW 12.8 (11.6-14.8) % Plt Count 191 (150-400) X10^3/uL Neut % (Auto) 55.4 (50-75) % Lymph % (Auto) 35.6 (25-40) % [place] % (Auto) 7.3 (3-14) % Eos % (Auto) 1.0 L (2-4) % Baso % (Auto) 0.7 (0-2) % Neut # (Auto) 4700 (0030-8465) /uL Lymph # (Auto) 3000 (9459-9419) /uL [place] # (Auto) 600 (0-900) /uL Eos # (Auto) 100 (0-450) /uL Baso # (Auto) 100 (0-100) /uL Sodium 142 (137-145) mmol/L Potassium 3.5 (3.4-5.1) mmol/L Chloride 104 (98-107) mmol/L Carbon Dioxide 29 (22-32) mmol/L BUN 14 (7-17) mg/dL Creatinine 0.77 (0.52-1.04) mg/dL Estimated GFR > 60.0 (>60) mL/min BUN/Creatinine Ratio 18.2 (6-22) Glucose 159 H (80-110) mg/dL Calcium 9.9 (8.4-10.2) mg/dL Total Bilirubin 0.4 (0.2-1.3) mg/dL AST 31 (14-36) IU/L ALT 18 (<35) IU/L Alkaline Phosphatase 121 (38-126) U/L Total Protein 7.6 (6.3-8.2) g/dL Albumin 4.5 (3.5-5.0) g/dL Globulin 3.1 (1.7-4.1) g/dL Albumin/Globulin Ratio 1.5 (1.0-2.8) Lipase 85 (23-300) U/L MDM Narrative Medical decision making narrative: Shortly after arrival in the emergency department patient had a large bowel movement that completely resolved all of her pain. Lab work was reviewed with her and is reassuring. Exam is entirely benign. At this point I suspect the etiology of her pain was constipation and not related to diverticulitis, bowel obstruction, appendicitis or other intra- abdominal surgical emergency. She is reassured and safe for home discharge Discharge Plan Departure Patient Disposition: Home Clinical Impression: Abdominal pain Qualifiers: Abdominal location: generalized Qualified Code(s): R10.84 - Generalized abdominal pain Constipation Qualifiers: Constipation type: unspecified constipation type Qualified Code(s): K59.00 - Constipation, unspecified Instructions: DI for Constipation Activity Restrictions/Additional Instructions: Thank you for coming in today With pain so severe felt like your to prior bowel obstructions, coming to the ER was very appropriate. I am glad that the Dulcolax you took prior to arrival finally seem to be working. After a bowel movement in the emergency department, your abdominal pain has completely resolved. It is safe for you to go home and please continue with your current bowel program to prevent constipation. I wish you the best Prescriptions: No Action albuterol sulfate [ProAir HFA] 90 mcg/actuation HFA aerosol inhaler 2 puff inhalation Q6H PRN (Reason: shortness of breath or wheezing) Qty: 18 RF: 2 fluticasone propion-salmeterol 55-14 mcg/actuation aerosol powdr breath activated 1 inh inhalation BID Qty: 1 RF: 0 diazepam 10 mg tablet See Rx Instructions .ROUTE .COMPLEX Qty: 90 RF: 1 ibuprofen 200 mg tablet 400 mg PO BID RF: 0 venlafaxine 37.5 mg tablet 112.5 mg PO DAILY Qty: 180 RF: 5 doxycycline hyclate 100 mg capsule 100 mg PO BID Qty: 14 RF: 0 prednisone 20 mg tablet 40 mg PO DAILY Qty: 10 RF: 0 omeprazole 20 mg capsule,delayed release(DR/EC) 20 mg PO DAILY Qty: 90 RF: 0 Referrals: Suresh Sauceda MD [Primary Care Provider] -
[2020-12-06 22:36] LABS: Add Manual Diff / Slide Review NO; Basophils Absolute Auto 100 /uL (0-100); Basophils Percent Auto 0.7 % (0-2); Eosinophils Absolute Auto 100 /uL (0-450); Hematocrit 47.4 % (36-46); Hemoglobin 15.6 g/dL (12.0-16.0); Lymphocytes Absolute Auto 3000 /uL (1100-4500); Lymphocytes Percent Auto 35.6 % (25-40); Mean Corpuscular HGB Conc 32.8 % (30-36); Mean Corpuscular Volume 100.6 fL (80-100); Monocytes Absolute Auto 600 /uL (0-900); Monocytes Percent Auto 7.3 % (3-14); Neutrophils Absolute Auto 4700 /uL (1500-7000); Neutrophils Percent Auto 55.4 % (50-75); Platelet Count 191 X10^3/uL (150-400); Red Blood Cell Count 4.72 X10^6/uL (4.0-5.2); Red Cell Distribution Width 12.8 % (11.6-14.8); White Blood Cell Count 8.5 X10^3/uL (4.5-11.0)
[2020-12-06 23:23] LABS: Alanine Aminotransferase 18 IU/L (<35); Albumin 4.5 g/dL (3.5-5.0); Albumin Globulin Ratio 1.5 (1.0-2.8); Alkaline Phosphatase 121 U/L (38-126); Aspartate Aminotransferase 31 IU/L (14-36); BUN Creatinine Ratio 18.2 (6-22); Bilirubin Total 0.4 mg/dL (0.2-1.3); Blood Urea Nitrogen 14 mg/dL (7-17); Calcium 9.9 mg/dL (8.4-10.2); Carbon Dioxide 29 mmol/L (22-32); Chloride 104 mmol/L (98-107); Estimated Glomerular Filt Rate > 60.0 mL/min (>60); Globulin 3.1 g/dL (1.7-4.1); Glucose 159 mg/dL (80-110); HEMOLYSIS < 15 (0-50); Lipase 85 U/L (23-300); Potassium 3.5 mmol/L (3.4-5.1); Sodium 142 mmol/L (137-145); Total Protein 7.6 g/dL (6.3-8.2)
--- NOTE | 2020-12-06 23:44 | PC.NURSE ---
2340 pt reports pain resolved completely after having a bowel movement.
== END 2020-12-07 00:12 | disposition home or self-care (01) ==
PROVIDERS: Emergency Provider Emergency Medicine; PCP Family Medicine
DX: R10.32 Left lower quadrant pain (principal); K59.00 Constipation, unspecified
CPT/HCPCS: 36415; 80053; 83690; 85025; 99283

== ENCOUNTER → 2021-01-27 12:56 | Outpatient (CLI) | payer MEDICARE, OTHER, SELFPAY ==
[2021-01-05 15:46] VITALS: BMI 24.2
[2021-01-27 13:40] LABS: COVID19 -Nasal RAPID Negative (Negative)
== END ==
PROVIDERS: PCP Family Medicine; Referring Provider Physician Assistant; Visit Provider Physician Assistant
DX: Z20.822 Contact with and (suspected) exposure to COVID-19 (principal)
CPT/HCPCS: 87635

== ENCOUNTER 2021-01-31 10:48 | Emergency (ER) | payer MEDICARE, OTHER, SELFPAY ==
[2021-01-05 15:46] VITALS: BMI 24.2
--- NOTE | 2021-01-31 10:59 | DI.RAD.S_ITS ---
PROCEDURE: XR CHEST 1V INDICATIONS: Flu like symptoms TECHNIQUE: One view of the chest was acquired. COMPARISON: [facility], CT, CT CHEST WO CON, 10/28/2020, 11:12. [facility], CR, XR CHEST 2V, 03/19/2020, 15:56. FINDINGS: Surgical changes and devices: None. Lungs and pleura: Left basilar atelectasis. No pleural effusions or pneumothorax. Mediastinum: Mediastinal contours appear normal. Heart size is normal. Aorta is tortuous. Bones and chest wall: No suspicious bony lesions. Overlying soft tissues appear unremarkable. IMPRESSION: No acute pulmonary opacity. Left basilar atelectasis. Dictated by: Paz Leavitt M.D. on 01/31/2021 at 11:19 Approved by: Paz Leavitt M.D. on 01/31/2021 at 11:20
[2021-01-31 11:01] VITALS: BP 165/82; PULSE 89; RESP 18; TEMP 36.2; O2SAT 97; BMI 26.6
--- NOTE | 2021-01-31 11:06 | ED.GENADULT ---
HPI - General Adult General Chief complaint: Upper Respiratory Symptoms Stated complaint: COPD, trouble breathing, cough, can't sleep Time Seen by Provider: 01/31/21 11:00 Source: patient and family Mode of arrival: Ambulatory History of Present Illness HPI narrative: Patient is a 70-year-old female. Has a history of COPD. Has albuterol inhalers at home. No baseline oxygen use. Is here for evaluation of approximately 8 days of ?being sick ?she states she has been coughing, trouble breathing, can not sleep at night. No fevers. Did have some diarrhea but that has improved. She thought it was something that she ate. No lower extremity swelling. Is unvaccinated against COVID. Related Data Previous Rx's Medication Instructions Recorded albuterol sulfate 90 mcg/actuation 2 puff INHALATION Q6H PRN #18 g 10/28/20 aerosol inhaler (ProAir HFA) azithromycin 250 mg tablet See Rx Instructions PO .COMPLEX #6 12/30/20 tab azithromycin 250 mg tablet See Rx Instructions PO .COMPLEX #6 01/27/21 tab prednisone 50 mg tablet 50 mg PO QAM 5 Days #5 tab 01/27/21 prednisone 20 mg tablet 20 mg PO DAILY #23 tab 01/31/21 Allergies Allergy/AdvReac Type Severity Reaction Status Date / Time No Known Drug Allergies Allergy Verified 01/27/21 12:55 Review of Systems Constitutional Constitutional: Denies fever(s) ENT Ears, Nose, Mouth, and Throat: Denies sore throat Cardiovascular Cardiovascular: Reports system reviewed and no additional complaints, except as documented Respiratory Respiratory: Reports as per HPI and Reports system reviewed and no additional complaints, except as documented Gastrointestinal Gastrointestinal: Reports as per HPI and Reports system reviewed and no additional complaints, except as documented Genitourinary Genitourinary: Reports system reviewed and no additional complaints, except as documented Musculoskeletal Musculoskeletal: Reports system reviewed and no additional complaints, except as documented Integumentary/Breasts Skin/Breast: Reports system reviewed and no additional complaints, except as documented Neurologic Neurologic: Reports system reviewed and no additional complaints, except as documented Hematologic/Lymphatic On Anticoagulants: No Allergic/Immunologic Allergic/Immunologic: Reports system reviewed and no additional complaints, except as documented Patient History Medical History Acne (1963) Anxiety Cataract (2014) Chicken pox Chronic cough Chronic cough Depression Discomfort of right hip DVT (deep venous thrombosis) (1997) Femoral-femoral bypass graft thrombosis, left (1998) Greater trochanteric bursitis of left hip Lung nodule Measles Mumps Plantar warts (1974) Seborrheic keratosis Substance abuse Surgical History Anesthesia History of cataract removal with insertion of prosthetic lens (01/2015) History of gynecologic surgery (1975) History of hip replacement (2012) History of intestinal surgery (05/1996) History of intestinal surgery (10/1996) History of knee surgery History of partial knee replacement (2005) History of tonsillectomy (1959) History of vein stripping (11/1997) Status post appendectomy (1980) Status post delivery (1983) Status post delivery (1985) Status post LASIK surgery (2000) Family History Father Lung cancer Heart disease High cholesterol Mother Lung cancer Brother Heart attack Grandmother Heart disease Social History household members: spouse Smoking Status: Former smoker Smoking Status: Former smoker alcohol intake frequency: 0-2 drinks per day Substance Use Type: does not use Exam Initial Vital Signs Initial Vital Signs: Vital Signs Temperature 97.1 F L 01/31/21 11:01 Pulse Rate 89 01/31/21 11:01 Respiratory Rate 18 01/31/21 11:01 Blood Pressure 165/82 H 01/31/21 11:01 Pulse Oximetry 97 01/31/21 11:01 Const General: cooperative and comfortable Limitations: mental status not altered HENMO Head: normal to inspection and normocephalic Neck Neck: normal visual inspection Resp Effort & Inspection: normal respiratory effort Auscultation: rhonchi Cardio Rate: regular rate Rhythm: regular rhythm GI Inspection: non-distended Palpation: soft Skin General: no rashes or lesions noted Neuro General: patient alert, patient awake and moves all extremities Extrem General: capillary refill normal and No edema Psych Appearance: grossly normal and well kempt Course Orders Ordered: ED Orders 01/31/21 10:59 XR chest 1V Stat 01/31/21 11:00 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 COVID19 -Nasal swab/Pre-Proc Stat 01/31/21 11:08 EKG-12 Lead Stat Discontinued Medications Albuterol (Albuterol 2.5 Mg/3 Ml Neb (Adult)) 2.5 mg INH NOW ONE Stop: 01/31/21 11:27 Last Admin: 01/31/21 11:36 Dose: 2.5 mg Documented by: ENID Methylprednisolone (Methylprednisolone 125 Mg/2 Ml Vial) 125 mg IV NOW ONE Stop: 01/31/21 11:27 Last Admin: 01/31/21 12:02 Dose: Not Given Documented by: CANDIDA Vital Signs Vital signs: Vital Signs - 8 hr 01/31/21 11:01 Temperature 97.1 F L Pulse Rate 89 Respiratory Rate 18 Blood Pressure 165/82 H Pulse Oximetry 97 Medical Decision Making Lab Data Labs: Lab Results 01/31/21 01/31/21 Range/Units 11:00 11:00 SARS-CoV-2 (PCR) Negative Negative (Negative) Imaging Data Chest x-ray: Radiologist's Impression: [address] [address] XRay Report Signed Patient: Karlene Chavez MR#: [id number] : 1950 Acct:[id number] Age/Sex: 70 / F Date of Service: 01/31/21 Loc: ED Accession Number: [id number] ?? Procedure: XR chest 1V Ordering Provider: Phoenix Mcnulty D.O. PROCEDURE:? XR CHEST 1V ? INDICATIONS:? Flu like symptoms ? TECHNIQUE:? One view of the chest was acquired.? ? COMPARISON:? [facility], CT, CT CHEST WO CON, 10/28/2020, 11:12.? [facility], CR, XR CHEST 2V, 03/19/2020, 15:56. ? FINDINGS:? ? Surgical changes and devices:? None.? ? Lungs and pleura:? Left basilar atelectasis.? No pleural effusions or pneumothorax.? ? Mediastinum:? Mediastinal contours appear normal.? Heart size is normal.? Aorta is tortuous. ? Bones and chest wall:? No suspicious bony lesions.? Overlying soft tissues appear unremarkable.? ? IMPRESSION:? No acute pulmonary opacity.? Left basilar atelectasis. ? ? Dictated by: Paz Leavitt M.D. on 01/31/2021 at 11:19 ? ? Approved by: Paz Leavitt M.D. on 01/31/2021 at 11:20?? ECG Data Attestation: I personally reviewed and interpreted this ECG as follows: Interpretation: Sinus rhythm Ventricular rate is 78 Normal axis Normal QRS Normal QTC No ST T wave changes MDM Narrative Medical decision making narrative: Patient's COVID was negative. Chest x-ray shows no signs of pneumonia. She has completed a course of antibiotics prescribed by outpatient clinic at the end of last week. She is also on day 4 of 5 of prednisone. I do not feel the need to restart any antibiotics. I do feel that we should have a more prolonged course of antibiotics. She should be using her inhaler at home more often. She was given a spacer. She was given return precautions and follow-up instructions. She expressed understanding agreement. Discharge Plan Departure Patient Disposition: Home Clinical Impression: COPD exacerbation Instructions: DI for Chronic Obstructive Pulmonary Disease Activity Restrictions/Additional Instructions: I recommend you start using the spacer with your albuterol inhaler as directed. Complete the course of steroids that your currently taking an afterwards start the do course that you were given today. Contact your primary doctor for a follow-up. Return to the emergency department for any new or worsening symptoms. Prescriptions: New prednisone 20 mg tablet 20 mg PO DAILY Qty: 23 0RF Rx Instructions: T 2T PO QD for 5D then 1T Po QD for 5D then 1/2T PO QD for 5D No Action azithromycin 250 mg tablet See Rx Instructions PO .COMPLEX Qty: 6 0RF Rx Instructions: Take 2 tablets (500mg) by mouth today (day 1), then 1 tablet (250mg) by mouth for 4 days (days 2-5). Finish all of this medication. prednisone 50 mg tablet 50 mg PO QAM 5 Days Qty: 5 0RF albuterol sulfate [ProAir HFA] 90 mcg/actuation HFA aerosol inhaler 2 puff inhalation Q6H PRN (Reason: shortness of breath or wheezing) Qty: 18 2RF azithromycin 250 mg tablet See Rx Instructions PO .COMPLEX Qty: 6 0RF Rx Instructions: take 500 mg today (day 1), then 250 mg for 4 days (days 2-5) PO Referrals: Suresh Sauceda MD [Primary Care Provider] -
[2021-01-31 11:22] LABS: COVID19 -Nasal RAPID Negative (Negative)
[2021-01-31] MEDS: ALBUTEROL 2.5 MG/3 ML NEB (ADULT) INH (11:36)
[2021-01-31 11:40] VITALS: PULSE 90; RESP 20; O2SAT 98
[2021-01-31 12:10] LABS: COVID19 - ADMIT (NP swab/PCR) Negative (Negative)
[2021-01-31 12:11] VITALS: PULSE 95; O2SAT 98
[2021-01-31 12:30] VITALS: BP 160/82; PULSE 90; O2SAT 96
[2021-01-31 13:00] VITALS: BP 165/85; PULSE 89; O2SAT 98
== END 2021-01-31 13:18 | disposition home or self-care (01) ==
PROVIDERS: Emergency Provider Emergency Medicine; PCP Family Medicine
DX: J44.1 Chronic obstructive pulmonary disease with (acute) exacerbation (principal); R03.0 Elevated blood-pressure reading, without diagnosis of hypertension; Z20.822 Contact with and (suspected) exposure to COVID-19; Z87.891 Personal history of nicotine dependence
CPT/HCPCS: 71045; 87635; 93005; 93010; 94640; 99283; 99284; C9803; J7613

== ENCOUNTER → 2021-02-02 11:15 | Outpatient (CLI) | payer MEDICARE, OTHER, SELFPAY ==
[2021-01-05 15:46] VITALS: BMI 24.2
[2021-02-02 12:45] LABS: BUN Creatinine Ratio 21.2 (6-22); Blood Urea Nitrogen 18 mg/dL (7-17); Estimated Glomerular Filt Rate > 60.0 mL/min (>60)
== END ==
PROVIDERS: PCP Family Medicine; Referring Provider Surgery; Visit Provider Surgery
DX: Z01.812 Encounter for preprocedural laboratory examination (principal)
CPT/HCPCS: 36415; 82565; 84520

== ENCOUNTER 2021-02-06 03:04 | Inpatient (IN) | payer MEDICARE, OTHER, SELFPAY ==
[2021-01-05 15:46] VITALS: BMI 24.2
[2021-02-06] VITALS (11 sets, daily range): BP systolic 145–195; BP diastolic 86–91; PULSE 69–88; RESP 16–18; TEMP 36.3–37; O2SAT 96–99; BMI 22.6; BMI 25.2
--- NOTE | 2021-02-06 03:36 | DI.CT.S_ITS ---
PROCEDURE: CT ABDOMEN PELVIS W CON INDICATIONS: abdominal pain TECHNIQUE: After the administration of intravenous contrast, axial sections acquired from the lung bases to the pubic symphysis. Coronal and sagittal reformats were performed. For radiation dose reduction, the following was used: automated exposure control, adjustment of mA and/or kV according to patient size. COMPARISON: [facility], CT, CT ABDOMEN PELVIS W CON, 11/26/2018, 5:03. FINDINGS: Image quality: Excellent. Lung bases: Unremarkable. Heart: No significant findings. ABDOMEN: Liver: Unremarkable. Gallbladder: Unremarkable. Biliary ducts: Unremarkable. Pancreas: Unremarkable. Spleen: Unremarkable. Adrenal Glands: Unremarkable. Kidneys and Ureters: Unremarkable. Stomach and Bowel: The stomach is distended. There is high-grade mechanical small bowel obstruction. Transition is abrupt, in the anterior mid abdomen and distal small bowel is decompressed and unremarkable. Small amount of interloop fluid noted. No pneumatosis or pneumoperitoneum. Distal small bowel and colon are unremarkable. The appendix is not visualized. Peritoneum: No abnormal intraperitoneal fluid. No free air. Ventral Wall: No hernias. Abdominal Nodes: No retroperitoneal or mesenteric adenopathy by size criteria. Vessels: Aorta and inferior vena cava are normal in size. PELVIS: Pelvic Organs: Unremarkable. Bladder: Unremarkable. Pelvic Nodes: No enlarged lymph nodes. Miscellaneous: No hernias are seen. Bones: Unremarkable. IMPRESSION: High-grade mechanical small bowel obstruction transition point evident in the anterior mid abdomen. Comment: Final report is concordant with preliminary interpretation by [facility] Dictated by: Gilberto Park M.D. on 02/06/2021 at 7:12 Approved by: Gilberto Park M.D. on 02/06/2021 at 7:15
--- NOTE | 2021-02-06 03:37 | ED.ABDPAIN ---
HPI - Abdominal Pain General Chief Complaint: Abdominal Pain Stated Complaint: possible bowl obstructions, lower abdomen pain Time Seen by Provider: 02/06/21 03:35 Source: patient Mode of arrival: Ambulatory Limitations: no limitations History of Present Illness HPI narrative: This is a 70-year-old female comes emergency department with complaint of abdominal pain. Patient states it started around 6:00 a.m. in the evening and has continued throughout the night. She has not had fevers, she has had nausea but no active vomiting. She had 1 very small bowel movement earlier today that was firm. No black or blood. Patient has not had any additional bowel movements. She has not had dysuria urgency or frequency. No back or flank pain. No chest pain or shortness of breath. She has had a cough. She was seen on Sunday the and she states she was told she had a COPD exacerbation which she does not believe that she has but was continued on steroids. Patient is concerned today for bowel obstruction. She has had these in the past. She has had surgery because of bowel obstructions. She states that she frequently develops adhesions. She has had x 2 and appendectomy. Patient is supposed to be on albuterol and Advair she has not been using these. She states because the Advair makes her feel nauseated. She also did not understand that these are 2 different medications an act differently and we did review this. Her primary care is Dr. Gardner. Patient also CT seems quite anxious and admits to quite a bit of anxiety. She denies depression. No suicidal ideation. She does states she stopped her venlafaxine and Valium cold turkey around mid December. She states she has had quite a bit of trouble sleeping, she feels constantly anxious and even watching the news makes her feel extremely stressed. She states that she does find pleasure in things like buying presents for her grandchildren and has activities that she looks forward to. Related Data Previous Rx's Medication Instructions Recorded albuterol sulfate 90 mcg/actuation 2 puff INHALATION Q6H PRN #18 g 10/28/20 aerosol inhaler (ProAir HFA) azithromycin 250 mg tablet See Rx Instructions PO .COMPLEX #6 01/27/21 tab prednisone 20 mg tablet 20 mg PO DAILY #23 tab 01/31/21 fluticasone 100 mcg-salmeterol 50 1 inh INHALATION BID #60 ea 02/01/21 mcg/dose blistr powdr for inhalation Allergies Allergy/AdvReac Type Severity Reaction Status Date / Time No Known Drug Allergies Allergy Verified 01/27/21 12:55 Review of Systems Review of Systems ROS Unobtainable: All systems reviewed & are unremarkable except as noted in HPI and below Patient History Medical History Acne (1963) Anxiety Cataract (2014) Chicken pox Chronic cough Chronic cough Depression Discomfort of right hip DVT (deep venous thrombosis) (1997) Femoral-femoral bypass graft thrombosis, left (1998) Greater trochanteric bursitis of left hip Lung nodule Measles Mumps Plantar warts (1974) Seborrheic keratosis Substance abuse Surgical History Anesthesia History of cataract removal with insertion of prosthetic lens (01/2015) History of gynecologic surgery (1975) History of hip replacement (2012) History of intestinal surgery (05/1996) History of intestinal surgery (10/1996) History of knee surgery History of partial knee replacement (2005) History of tonsillectomy (1959) History of vein stripping (11/1997) Status post appendectomy (1980) Status post delivery (1983) Status post delivery (1985) Status post LASIK surgery (2000) Family History Father Lung cancer Heart disease High cholesterol Mother Lung cancer Brother Heart attack Grandmother Heart disease Social History household members: spouse Smoking Status: Former smoker alcohol intake: current Smoking Status: Former smoker alcohol intake frequency: 0-2 drinks per day Substance Use Type: does not use Exam Narrative Exam Narrative: GENERAL: Alert and oriented x three, elderly female in mild distress. Patient appears anxious on exam. HEENT: Head normocephalic, atraumatic, EOMI, pupils reactive, face symmetric, moist mucous membranes NECK: Supple, full range of motion CARDIOVASCULAR: Regular rate and rhythm without murmurs, rubs or gallops. RESPIRATORY: Breath sounds equal bilaterally, no wheezes rales or rhonchi. ABDOMEN: Soft, mild generalized tenderness. Mildly distended. Normoactive bowel sounds all 4 quadrants. No guarding or rebound, rigidity, no mass : No CVA tenderness EXTREMITIES: Normal range of motion, no clubbing or edema. Neurovascularly intact NEUROLOGICAL: Cranial nerves II through XII grossly intact. Moving all extremities SKIN: Warm, dry, no petechiae, no rashes or lesions. PSYCH: Positive for anxiety, denies depression, denies suicidal ideation. No hallucinations. 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) Stat Enoxaparin Sodium (Enoxaparin 40 Mg/0.4 Ml Syringe) 40 mg SUBCUT DAILY DONNA Sodium Chloride (Normal Saline 0.9%) 1,000 mls @ 150 mls/hr IV CONT DONNA Last Admin: 02/06/21 06:46 Dose: 150 mls/hr Documented by: GINO Morphine Sulfate (Morphine 2 Mg/Ml Inj) 2 mg IV Q4HR PRN PRN Reason: Pain, Moderate (4-6) Ondansetron HCl (Ondansetron 4 Mg/2 Ml Inj) 4 mg IV Q8HR PRN PRN Reason: Nausea And Vomiting Pantoprazole Sodium (Pantoprazole 40 Mg Vial) 40 mg IV DAILY DONNA Discontinued Medications Sodium Chloride (Normal Saline 0.9%) 1,000 mls @ 150 mls/hr IV CONT DONNA Last Infusion: 02/06/21 06:09 Dose: 0 mls/hr Documented by: Admin: 02/06/21 03:56 Dose: 150 mls/hr Documented by: MADELINE Sodium Chloride (Normal Saline 0.45%) 1,000 mls @ 150 mls/hr IV CONT DONNA Last Admin: 02/06/21 06:32 Dose: 100 mls/hr Documented by: GINO Ketorolac Tromethamine (Ketorolac 30 Mg/Ml Vial) 15 mg IV NOW ONE Stop: 02/06/21 03:37 Last Admin: 02/06/21 03:55 Dose: 15 mg Documented by: MADELINE Lorazepam (Lorazepam 0.5 Mg Tablet) 0.5 mg PO NOW ONE Stop: 02/06/21 03:37 Last Admin: 02/06/21 03:55 Dose: 0.5 mg Documented by: MADELINE Reevaluation(s) Reevaluation #1: Patient improved in terms of pain after medication. She also feels much less anxious after the Ativan p.o.. Time: 05:24 Consultations Consultation #1: Dr. Monzon, general surgery is happy to see the patient. He does ask for hospitalist be involved as patient has had recent visits for her breathing and reported history of COPD. Consultation #2: Dr. Wise, hospitalist accepts for admission. Vital Signs Vital signs: Vital Signs - 8 hr 02/06/21 03:10 02/06/21 03:57 02/06/21 04:00 Temperature 97.8 F Pulse Rate 88 78 74 Respiratory Rate 18 Blood Pressure 145/86 H 166/87 H Pulse Oximetry 99 97 98 02/06/21 05:37 02/06/21 05:40 Temperature Pulse Rate 79 Respiratory Rate Blood Pressure 195/86 H Pulse Oximetry 97 97 MDM - Abdominal Pain Lab Data Result diagrams: 02/06/21 03:50 02/06/21 03:50 Labs: Lab Results 02/06/21 02/06/21 Range/Units 03:50 03:50 WBC 15.0 H (4.5-11.0) X10^3/uL RBC 5.08 (4.0-5.2) X10^6/uL Hgb 16.8 H (12.0-16.0) g/dL Hct 49.8 H (36-46) % MCV 98.2 (80-100) fL MCH 33.1 (26-34) PG MCHC 33.7 (30-36) % RDW 12.7 (11.6-14.8) % Plt Count 291 (150-400) X10^3/uL Neut % (Auto) 75.7 H (50-75) % Lymph % (Auto) 19.5 L (25-40) % [place] % (Auto) 4.5 (3-14) % Eos % (Auto) 0.0 L (2-4) % Baso % (Auto) 0.3 (0-2) % Neut # (Auto) 57201 H (4870-8449) /uL Lymph # (Auto) 2900 (8863-7367) /uL [place] # (Auto) 700 (0-900) /uL Eos # (Auto) 0 (0-450) /uL Baso # (Auto) 0 (0-100) /uL Sodium 142 (137-145) mmol/L Potassium 3.6 (3.4-5.1) mmol/L Chloride 101 (98-107) mmol/L Carbon Dioxide 32 (22-32) mmol/L BUN 19 H (7-17) mg/dL Creatinine 0.92 (0.52-1.04) mg/dL Estimated GFR > 60.0 (>60) mL/min BUN/Creatinine Ratio 20.7 (6-22) Glucose 115 H (80-110) mg/dL Calcium 10.7 H (8.4-10.2) mg/dL Total Bilirubin 0.9 (0.2-1.3) mg/dL AST 32 (14-36) IU/L ALT 30 (<35) IU/L Alkaline Phosphatase 94 (38-126) U/L Total Protein 7.7 (6.3-8.2) g/dL Albumin 4.6 (3.5-5.0) g/dL Globulin 3.1 (1.7-4.1) g/dL Albumin/Globulin Ratio 1.5 (1.0-2.8) Lipase 71 (23-300) U/L Point of care testing: Urine Dip Bedside Urine Glucose Negative Bedside Urine Bilirubin - Negative Urine Specific Patrick 1.005 Bedside Urine Occult Blood - Negative Bedside Urine pH 8.0 Bedside Urine Protein - Negative Bedside Urine Urobilinogen - Negative Bedside Urine Nitrite - Negative Bedside Urine Leukocytes - Negative Esterase Imaging Data CT scan - abdomen/pelvis: Radiologist's Impression: Patient has high-grade mechanical small-bowel obstruction. Transition is abrupt, anterior mid abdomen and distal small bowel is decompressed and unremarkable. Small amount of interloop fluid noted. No pneumatosis or pneumoperitoneum. Distal bowel and colon are unremarkable, appendix is not visualized may be surgically absent. She does have degenerative changes of her lumbar spine. MDM Narrative Medical decision making narrative: This is a 70-year-old female comes in with concern for bowel obstruction she has had multiple in the past and sometimes required surgical intervention. She has been nauseated but not vomiting she will abdominal pain about 12 hours prior to arrival she has not had a bowel movement for 12-24 hours and not really been passing gas or flatus. CT imaging does show changes consistent with bowel obstruction. Patient has a leukocytosis but has been on prednisone for possible COPD your breathing issues. Spoke with general surgery who is happy to consult. As well as the hospitalist who accepts. Patient is NPO. Discharge Plan Departure Patient Disposition: Admitted As Inpatient Clinical Impression: Small bowel obstruction Admit Date/Time: 02/06/21 05:43 Admit Provider: Abdoul Wise
[2021-02-06] MEDS: LORazepam 0.5 MG TABLET PO (03:55)
[2021-02-06] MEDS: KETOROLAC 30 MG/ML VIAL 15 MG IV (03:55)
[2021-02-06] MEDS: SODIUM CHLORIDE 0.9% 1,000 ML 150 ML IV ×3 (03:56→13:45)
[2021-02-06 04:03] LABS: Add Manual Diff / Slide Review NO; Basophils Absolute Auto 0 /uL (0-100); Basophils Percent Auto 0.3 % (0-2); Eosinophils Absolute Auto 0 /uL (0-450); Hematocrit 49.8 % (36-46); Hemoglobin 16.8 g/dL (12.0-16.0); Lymphocytes Absolute Auto 2900 /uL (1100-4500); Lymphocytes Percent Auto 19.5 % (25-40); Mean Corpuscular HGB Conc 33.7 % (30-36); Mean Corpuscular Hemoglobin 33.1 PG (26-34); Mean Corpuscular Volume 98.2 fL (80-100); Monocytes Absolute Auto 700 /uL (0-900); Monocytes Percent Auto 4.5 % (3-14); Neutrophils Absolute Auto 11400 /uL (1500-7000); Neutrophils Percent Auto 75.7 % (50-75); Platelet Count 291 X10^3/uL (150-400); Red Blood Cell Count 5.08 X10^6/uL (4.0-5.2); Red Cell Distribution Width 12.7 % (11.6-14.8)
[2021-02-06 04:10] LABS: Alanine Aminotransferase 30 IU/L (<35); Albumin 4.6 g/dL (3.5-5.0); Albumin Globulin Ratio 1.5 (1.0-2.8); Alkaline Phosphatase 94 U/L (38-126); Aspartate Aminotransferase 32 IU/L (14-36); BUN Creatinine Ratio 20.7 (6-22); Bilirubin Total 0.9 mg/dL (0.2-1.3); Blood Urea Nitrogen 19 mg/dL (7-17); Calcium 10.7 mg/dL (8.4-10.2); Carbon Dioxide 32 mmol/L (22-32); Chloride 101 mmol/L (98-107); Estimated Glomerular Filt Rate > 60.0 mL/min (>60); Globulin 3.1 g/dL (1.7-4.1); Glucose 115 mg/dL (80-110); HEMOLYSIS < 15 (0-50); Lipase 71 U/L (23-300); Potassium 3.6 mmol/L (3.4-5.1); Sodium 142 mmol/L (137-145); Total Protein 7.7 g/dL (6.3-8.2)
[2021-02-06] MEDS: SODIUM CHLORIDE 0.45% 1,000 ML 100 ML IV (06:32)
--- NOTE | 2021-02-06 06:38 | P.HP_ITS ---
History of Present Illness History of Present Illness Chief complaint: possible bowl obstructions, lower abdomen pain Narrative: Ms. Chavez is a 70W with PMH of multiple bowel obstruction s/p surgery, GERD, possible COPD who presents with abdominal pain and vomiting. She said she started feeling sick on Sunday, now 4 days ago. She noted vomiting, abdominal pain, and diarrhea. She started to feel slightly improved on , and Sunday she thought she was feeling better. However Sunday she noted worsening abdominal pain, nausea, no appetite. She has not had fevers. She did not have any bowel movement since Sunday until having a small bowel movement prior to coming in to the ED. No bleeding noted. She has had a cough and was told she had possible COPD exacerbation and given steroids. She states she has never had pulmonary function testing. She is seeing general surgery for consideration of an EGD to evaluate for GERD. ?She has underwent surgery for bowel obstruction due to adhesions twice in the past, the last time in the mid to late s. She has also had csections, and appendectomy. In the ED workup was done, vitals unremarkable. Labs notable for WBC 15, Hgb 16.8, plts 291, na 142, creatinine 0.92. LFTs ok, lipase normal. UA negative. CT scan read as high grade mechanical bowel obstruction with abrupt transition in anterior mid abdomen with small amount of interloop fluid. General surgery was notified. Patient was given IV fluid and pain medication and admitted for further treatment. Patient History Medical History Acne (1963) Anxiety Cataract (2014) Chicken pox Chronic cough Chronic cough Depression Discomfort of right hip DVT (deep venous thrombosis) (1997) Femoral-femoral bypass graft thrombosis, left (1998) Greater trochanteric bursitis of left hip Lung nodule Measles Mumps Plantar warts (1974) Seborrheic keratosis Substance abuse Surgical History Anesthesia History of cataract removal with insertion of prosthetic lens (01/2015) History of gynecologic surgery (1975) History of hip replacement (2012) History of intestinal surgery (05/1996) History of intestinal surgery (10/1996) History of knee surgery History of partial knee replacement (2005) History of tonsillectomy (1959) History of vein stripping (11/1997) Status post appendectomy (1980) Status post delivery (1983) Status post delivery (1985) Status post LASIK surgery (2000) Family & Social History Family History Father Lung cancer Heart disease High cholesterol Mother Lung cancer Brother Heart attack Grandmother Heart disease Social History: household members spouse Prior Living Arrangements House Safety & Behavioral: Feels Safe in Current Yes Environment Been Physically Hurt or No Threatened By a Person Suicidal Ideation Description None Suicide Plan Description No Plan Tobacco & Substance use: Tobacco type cigarettes Smoking Status Former smoker Smoking packs per day 1 alcohol intake current alcohol intake frequency 0-2 drinks per day Substance Use Type does not use Meds Home Medications and Allergies Home Medications Medication Instructions Recorded Confirmed Type albuterol sulfate 90 mcg/actuation 2 puff INHALATION Q6H PRN #18 g 10/28/20 01/27/21 Rx aerosol inhaler (ProAir HFA) azithromycin 250 mg tablet See Rx Instructions PO .COMPLEX #6 01/27/21 01/27/21 Rx tab prednisone 20 mg tablet 20 mg PO DAILY #23 tab 01/31/21 Rx fluticasone 100 mcg-salmeterol 50 1 inh INHALATION BID #60 ea 02/01/21 Rx mcg/dose blistr powdr for inhalation Allergies Allergy/AdvReac Type Severity Reaction Status Date / Time No Known Drug Allergies Allergy Verified 01/27/21 12:55 Review of Systems Review of Systems Narrative: 14 systems reviewed and negative aside from what is noted in HPI Exam Vital Signs (past 8 hours): - 02/06/21 03:10 02/06/21 03:57 02/06/21 04:00 Temperature 97.8 F Pulse Rate 88 78 74 Respiratory Rate 18 Blood Pressure 145/86 H 166/87 H Pulse Oximetry 99 97 98 02/06/21 05:37 02/06/21 05:40 Temperature Pulse Rate 79 Respiratory Rate Blood Pressure 195/86 H Pulse Oximetry 97 97 Oxygen Delivery Method Room Air Narrative Exam Narrative: GENERAL: no acute distress HEENT: PERRL, dry mucous membranes CARDIOVASCULAR: Regular rate and rhythm without murmurs. RESPIRATORY: clear bilalterally, no wheezes, rhonchi, rales ABDOMEN: Soft, mild tenderness primarily in the mid abdomen.? Mildly distended.?normal bowel sounds.?No rebound/guarding : No CVA tenderness EXTREMITIES: Normal range of motion, no clubbing or edema NEUROLOGICAL: No focal deficits noted.? Moving all extremities SKIN: Warm, dry, no rashes PSYCH:? pleasant, cooperative, anxious Objective Labs Result Diagrams: 02/06/21 03:50 02/06/21 03:50 Labs: Laboratory Results - last 24 hr 02/06/21 02/06/21 03:50 03:50 WBC 15.0 H RBC 5.08 Hgb 16.8 H Hct 49.8 H MCV 98.2 MCH 33.1 MCHC 33.7 RDW 12.7 Plt Count 291 Neut % (Auto) 75.7 H Lymph % (Auto) 19.5 L [place] % (Auto) 4.5 Eos % (Auto) 0.0 L Baso % (Auto) 0.3 Neut # (Auto) 41407 H Lymph # (Auto) 2900 [place] # (Auto) 700 Eos # (Auto) 0 Baso # (Auto) 0 Sodium 142 Potassium 3.6 Chloride 101 Carbon Dioxide 32 BUN 19 H Creatinine 0.92 Estimated GFR > 60.0 BUN/Creatinine Ratio 20.7 Glucose 115 H Calcium 10.7 H Total Bilirubin 0.9 AST 32 ALT 30 Alkaline Phosphatase 94 Total Protein 7.7 Albumin 4.6 Globulin 3.1 Albumin/Globulin Ratio 1.5 Lipase 71 Assessment & Plan Assessment & Plan narrative: 1. Acute small bowel obstruction -did have bowel movement prior to arrival -CT scan showed mid abdomen SBO -general surgery consulted -ordered IV fluid, pain control -no NG tube for now as patient not vomiting -NPO for now -leukocytosis and elevated hemoglobin likely secondary to hemoconcentration 2. Possible GERD -ordered for protonix 3. Questionable COPD -continue albuterol and advair Code: Full Proxy: Vineet Chavez, Time Spent With Patient Critical Care time: I spent a total of [] minutes of critical care time on this patient's care today; this time is exclusive of procedural time. Quality VTE Deep Vein Thrombosis/Pulmonary Embolism Present on Admission: No
[2021-02-06 07:01] LABS: COVID19 - ADMIT (NP swab/PCR) Negative (Negative)
--- NOTE | 2021-02-06 09:31 | CM.DANOTE ---
Patient is a 70 yo female who was admitted on 02/06/21 for Poss SBO. Pt has [facility] and [facility] for insurance and her PCP is Dr. Suresh Sauceda. EMR was reviewed. Per MD, pt with hx of multiple SBOs and pancreatitis and currently NPO but no NGT needed at this time and Surgeon to Consult. Surgeon Consult pending. SW attempted to meet bedside with pt who is alert and oriented and confirms that she lives with spouse and is quite independent at baseline but requests SW to come back since she states I haven't slept the last few days dealing with my bowel pain and I'm just so tired and need to sleep. Pt was last admitted in Nov 2018 for similar and was able to progress for safe d/c home with spouse assist and outpt followup. Plan: SW to follow closely with pt after she gets some rest and Surgeon Consults to determine if pt can be managed conservatively or if surgical intervention needed. SW to follow for any identified discharge planning needs. WHITLEY Craig Discharge Planning/Care Management CM Discharge Assessment Start: 02/06/21 09:29 Freq: Status: Active Protocol: Document 02/06/21 09:29 (Rec: 02/06/21 09:30 [id number]) Discharge Planning Assessment Assigned Warning Coordination Meteorologist WHITLEY De Jesus DPOA/Assigned Designee Name spouse Norris Contact Information [phone] Advance Directives? Yes Advance Directives on File Yes History Provided By Patient,Medical Record Has Patient been admitted in last 30 No days? Prior Living Arrangements House Household Members spouse Type of transporation used prior to Drives own vehicle admit Independent with ADL's Yes Is patient alert and oriented? Yes Caregiver for Another No Barriers to Discharge No Discharge Plan Home Transportation Arrangement Family Referrals Initiated None needed Whiteboard Updated in Patient Room with Yes name and ext. # of Warning Coordination Meteorologist Review Status In Process Please Provide Date Initial DC 02/06/21 Assessment Was Performed Next Review Type Continued Stay Review
[2021-02-06] MEDS: PANTOPRAZOLE 40 MG VIAL IV (10:03)
--- NOTE | 2021-02-06 11:26 | P.CONS_ITS ---
History of Present Illness Consult details Date Patient Seen: 02/06/21 Time Patient Seen: 11:26 Chief complaint: Small-bowel obstruction Narrative: Viviana is a 70-year-old woman who presented to the emergency department complaining of 4 days of abdominal pain and nausea and vomiting. A CT scan was performed which showed a small-bowel obstruction with a transition point. This is similar to prior bowel obstructions she has had. She reports she had surgery for bowel obstructions twice in the . Since admission she has felt better with no more vomiting and she reports that she has had a bowel movement. She has not had an NG-tube placed on this admission yet. Meds Home Medications and Allergies Home Medications Medication Instructions Recorded Confirmed Type albuterol sulfate 90 mcg/actuation 2 puff INHALATION Q6H PRN #18 g 10/28/20 02/06/21 Rx aerosol inhaler (ProAir HFA) prednisone 20 mg tablet 20 mg PO DAILY #23 tab 01/31/21 02/06/21 Rx fluticasone 100 mcg-salmeterol 50 1 inh INHALATION BID #60 ea 02/01/21 02/06/21 Rx mcg/dose blistr powdr for inhalation Allergies Allergy/AdvReac Type Severity Reaction Status Date / Time No Known Drug Allergies Allergy Verified 01/27/21 12:55 Exam Vital Signs (past 8 hours): - 02/06/21 03:57 02/06/21 04:00 02/06/21 05:37 Temperature Pulse Rate 78 74 Respiratory Rate Blood Pressure 166/87 H Pulse Oximetry 97 98 97 02/06/21 05:40 02/06/21 06:20 02/06/21 08:15 Temperature 97.4 F L 98.6 F Pulse Rate 79 69 71 Respiratory Rate 16 18 Blood Pressure 195/86 H 169/87 H 159/90 H Pulse Oximetry 97 96 97 02/06/21 08:45 02/06/21 09:47 Temperature Pulse Rate Respiratory Rate Blood Pressure Pulse Oximetry 96 96 Oxygen Delivery Method Room Air Oxygen Flow Rate 0 Const General: No acute distress Resp Effort & Inspection: normal respiratory effort GI Other: Soft, moderately tender, moderately distended. There is a midline surgical incision and a Pfannenstiel surgical incision Objective Labs Result Diagrams: 02/06/21 03:50 02/06/21 03:50 Labs: Laboratory Results - last 24 hr 02/06/21 02/06/21 02/06/21 03:50 03:50 05:35 WBC 15.0 H RBC 5.08 Hgb 16.8 H Hct 49.8 H MCV 98.2 MCH 33.1 MCHC 33.7 RDW 12.7 Plt Count 291 Neut % (Auto) 75.7 H Lymph % (Auto) 19.5 L [place] % (Auto) 4.5 Eos % (Auto) 0.0 L Baso % (Auto) 0.3 Neut # (Auto) 38750 H Lymph # (Auto) 2900 [place] # (Auto) 700 Eos # (Auto) 0 Baso # (Auto) 0 Sodium 142 Potassium 3.6 Chloride 101 Carbon Dioxide 32 BUN 19 H Creatinine 0.92 Estimated GFR > 60.0 BUN/Creatinine Ratio 20.7 Glucose 115 H Calcium 10.7 H Total Bilirubin 0.9 AST 32 ALT 30 Alkaline Phosphatase 94 Total Protein 7.7 Albumin 4.6 Globulin 3.1 Albumin/Globulin Ratio 1.5 Lipase 71 SARS-CoV-2 (PCR) Negative [facility] Medical History Acne (1963) Anxiety Cataract (2014) Chicken pox Chronic cough Chronic cough Depression Discomfort of right hip DVT (deep venous thrombosis) (1997) Femoral-femoral bypass graft thrombosis, left (1998) Greater trochanteric bursitis of left hip Lung nodule Measles Mumps Plantar warts (1974) Seborrheic keratosis Substance abuse Surgical History Anesthesia History of cataract removal with insertion of prosthetic lens (01/2015) History of gynecologic surgery (1975) History of hip replacement (2012) History of intestinal surgery (05/1996) History of intestinal surgery (10/1996) History of knee surgery History of partial knee replacement (2005) History of tonsillectomy (1959) History of vein stripping (11/1997) Status post appendectomy (1980) Status post delivery (1983) Status post delivery (1985) Status post LASIK surgery (2000) Family History Father Lung cancer Heart disease High cholesterol Mother Lung cancer Brother Heart attack Grandmother Heart disease Social History household members: spouse Tobacco & Substance Use Smoking Status: Former smoker alcohol intake: current Assessment & Plan Assessment and plan (1) Small bowel obstruction: Status: Acute Plan Small-bowel obstruction. The fact that she has had a bowel movement and no vomiting since admission is promising that she may be resolving. If she vomits more I would recommend we place an NG tube. If she has another bowel movement I recommend we advance her diet as tolerates. Time Spent With Patient Critical Care time: I spent a total of [] minutes of critical care time on this patient's care today; this time is exclusive of procedural time.
[2021-02-06] MEDS: ALBUTEROL 2.5 MG/3 ML NEB (ADULT) INH ×2 (17:07→19:48)
[2021-02-06] MEDS: diazePAM 5 MG TABLET PO ×2 (18:09→20:16)
[2021-02-06] MEDS: BUDESONIDE 0.5 MG/2 ML NEB INH (19:48)
[2021-02-07] VITALS: BP 144/77; PULSE 74; RESP 16; TEMP 36.2; O2SAT 95
--- NOTE | 2021-02-07 | DI.RAD.S_ITS ---
PROCEDURE: XR GASTROGRAFIN CHALLENGE COMPARISON: None. INDICATIONS: partial SBO FINDINGS: Single frontal abdominal radiograph was obtained 4 hours after oral administration of Gastrografin. Paragraphs contrast present throughout the large and small bowel without evidence of obstruction. There is contrast in the stomach. No evidence of contrast extravasation. Underlying osseous structures are unremarkable as and advanced right hip osteoarthritis and left total hip arthroplasty. IMPRESSION: 1. Gastrografin within the large and small bowel without evidence of obstruction. Approved by: Benja Arango M.D. on 02/07/2021 at 21:06
--- NOTE | 2021-02-07 01:33 | PC.NURSE ---
SHIFT: Report received, care assumed 1914. Pt. A&Ox4. VSS. Saline locked as pt is taking adequate PO. Per Dr. Monzon's progress note, okay to advance diet as tolerated if pt asymptomatic and having bowel movements. She ate a pudding and an applesauce, and tolerated well. Pt self-reported feeling anxious, restless, wants something for sleep. No sleep aid ordered and pt already received ordered dose of Valium this evening. Encouraged to get OOB and room for activity. Walked the halls, returned to room, went to sleep.
[2021-02-07] MEDS: ENOXAPARIN 40 MG/0.4 ML SYRINGE SUBCUT (08:29)
[2021-02-07] MEDS: PANTOPRAZOLE 40 MG VIAL IV (08:29)
[2021-02-07] MEDS: diazePAM 5 MG TABLET PO ×3 (08:30→21:32)
[2021-02-07 09:00] VITALS: PULSE 92; RESP 16; O2SAT 99
[2021-02-07 09:10] VITALS: BP 142/85; PULSE 86; RESP 20; TEMP 35.9; O2SAT 97
--- NOTE | 2021-02-07 09:34 | DI.RAD.S_ITS ---
PROCEDURE: XR ABDOMEN MIN 2V INDICATIONS: FOLLOW-UP FOR ABDOMINAL OBSTRUCTION TECHNIQUE: 2 views of the abdomen were acquired. COMPARISON: [facility], CT, CT ABDOMEN PELVIS W CON, 02/06/2021, 4:09. FINDINGS: Surgical changes and devices: None. Bowel: No pneumoperitoneum. There are few air-filled small bowel loops to the left of midline which are at the upper limits of normal in caliber, slightly less distended compared to prior. There is air and stool in the loops of colon. Soft tissues: No masses; visualized solid organ contours appear normal in size. No suspicious abdominal calcifications. Bilateral gluteal region calcifications. Bones: No suspicious bony abnormalities. Left hip arthroplasty. IMPRESSION: 1. Mild improvement in air-filled distended small bowel loops suggesting resolving ileus or obstruction. Dictated by: Lissa Hicks M.D. on 02/07/2021 at 10:16 Approved by: Lissa Hicks M.D. on 02/07/2021 at 10:18
--- NOTE | 2021-02-07 12:32 | PM.PN.1 ---
Subjective Subjective Date Patient Seen: 02/07/21 Time Patient Seen: 12:32 Interval history: Viviana had some flatus overnight and tolerated liquid diet but now she states that she is not passing any flatus and she feels like she is cooling pan tender Exam Vital Signs (past 8 hours): - 02/07/21 09:10 Temperature 96.6 F L Pulse Rate 86 Respiratory Rate 20 Blood Pressure 142/85 H Pulse Oximetry 97 Oxygen Delivery Method Room Air Oxygen Flow Rate 0 Narrative Exam Narrative: No peritoneal findings Moderately distended moderately tender Objective Labs Result Diagrams: 02/06/21 03:50 02/06/21 03:50 [facility] Medical History Acne (1963) Anxiety Cataract (2014) Chicken pox Chronic cough Chronic cough Depression Discomfort of right hip DVT (deep venous thrombosis) (1997) Femoral-femoral bypass graft thrombosis, left (1998) Greater trochanteric bursitis of left hip Lung nodule Measles Mumps Plantar warts (1974) Seborrheic keratosis Substance abuse Surgical History Anesthesia History of cataract removal with insertion of prosthetic lens (01/2015) History of gynecologic surgery (1975) History of hip replacement (2012) History of intestinal surgery (05/1996) History of intestinal surgery (10/1996) History of knee surgery History of partial knee replacement (2005) History of tonsillectomy (1959) History of vein stripping (11/1997) Status post appendectomy (1980) Status post delivery (1983) Status post delivery (1985) Status post LASIK surgery (2000) Family History Father Lung cancer Heart disease High cholesterol Mother Lung cancer Brother Heart attack Grandmother Heart disease Social History household members: spouse Smoking Status: Former smoker alcohol intake: current Assessment & Plan Assessment and plan (1) Small bowel obstruction: Status: Acute Plan Gastrografin challenge Time Spent With Patient Critical Care time: I spent a total of [] minutes of critical care time on this patient's care today; this time is exclusive of procedural time. Quality VTE Deep Vein Thrombosis/Pulmonary Embolism Present on Admission: No
[2021-02-07 13:47] LABS: Add Manual Diff / Slide Review NO; Basophils Absolute Auto 0 /uL (0-100); Basophils Percent Auto 0.5 % (0-2); Eosinophils Absolute Auto 100 /uL (0-450); Eosinophils Percent Auto 0.9 % (2-4); Hemoglobin 15.7 g/dL (12.0-16.0); Lymphocytes Absolute Auto 3000 /uL (1100-4500); Lymphocytes Percent Auto 40.4 % (25-40); Mean Corpuscular Hemoglobin 33.7 PG (26-34); Mean Corpuscular Volume 99.1 fL (80-100); Monocytes Absolute Auto 400 /uL (0-900); Monocytes Percent Auto 5.8 % (3-14); Neutrophils Absolute Auto 3900 /uL (1500-7000); Neutrophils Percent Auto 52.4 % (50-75); Platelet Count 228 X10^3/uL (150-400); Red Blood Cell Count 4.65 X10^6/uL (4.0-5.2); Red Cell Distribution Width 12.9 % (11.6-14.8); White Blood Cell Count 7.5 X10^3/uL (4.5-11.0)
[2021-02-07 13:59] LABS: Alanine Aminotransferase 44 IU/L (<35); Albumin 4.2 g/dL (3.5-5.0); Albumin Globulin Ratio 1.4 (1.0-2.8); Alkaline Phosphatase 79 U/L (38-126); Aspartate Aminotransferase 33 IU/L (14-36); BUN Creatinine Ratio 12.5 (6-22); Bilirubin Total 0.9 mg/dL (0.2-1.3); Blood Urea Nitrogen 10 mg/dL (7-17); Calcium 9.8 mg/dL (8.4-10.2); Carbon Dioxide 27 mmol/L (22-32); Chloride 107 mmol/L (98-107); Estimated Glomerular Filt Rate > 60.0 mL/min (>60); Globulin 2.9 g/dL (1.7-4.1); Glucose 93 mg/dL (80-110); HEMOLYSIS < 15 (0-50); Phosphorous 2.8 mg/dL (2.8-4.1); Potassium 3.4 mmol/L (3.4-5.1); Sodium 141 mmol/L (137-145); Total Protein 7.1 g/dL (6.3-8.2)
--- NOTE | 2021-02-07 16:19 | PM.PN.1 ---
Subjective Subjective Date Patient Seen: 02/07/21 Interval history: BRIEF HISTORY THIS IS A 70-YEAR-OLD FEMALE ADMITTED TO THE HOSPITAL IN SUSPICION OF POSSIBLE ILEUS VERSUS BOWEL OBSTRUCTION. PARTIAL BOWEL SUSPECT THAT THIS TIME PATIENT HAD A LARGE BOWEL MOVEMENT DURING THIS ADMISSION. SHE IS PASSING GAS. SURGICAL TEAM IS ON BOARD THIS MORNING SHE WAS FEELING HUNGRY. SHE DENIES ANY ABDOMINAL PAIN NO NAUSEA OR VOMITING NO ADDITIONAL BOWEL MOVEMENT REPORTED LAST 12 HOURS DENIES ANY CHEST PAIN OR CHEST PRESSURE SPOKE TO NURSING. NO SIGNIFICANTISSUES REPORTED OVERNIGHT Exam Vital Signs (past 8 hours): - 02/07/21 09:00 02/07/21 09:10 Temperature 96.6 F L Pulse Rate 92 H 86 Respiratory Rate 16 20 Blood Pressure 142/85 H Pulse Oximetry 99 97 Oxygen Delivery Method Room Air Oxygen Flow Rate 0 Narrative Exam Narrative: NO ACUTE DISTRESS. PATIENT IS ALERT ORIENTED X3. VITAL SIGNS STABLE HEAD ATRAUMATIC NORMOCEPHALIC NECK : SUPPLE WITHOUT ADENOPATHY NO CAROTID BRUITS EYE: EOMI, PERRLA, NORMAL CONJUNCTIVA; NO JAUNDICE CHEST: REGULAR RATE. NO RUBS. PMI IS NON DISPLACED. NO MURMURS; NORMAL S1-S2 PULMONARY: DECREASED BS OVER THE BASES. MILD BIBASILAR CRACKLES NOTED; NO INCREASED DULLNESS TO PERCUSSION ABDOMEN: SOFT. NONTENDER. NONDISTENDED. BOWEL SOUNDS ARE PRESENT IN ALL 4 QUADRANTS BUT HYPOACTIVE. NO PALPATING MASS. NO GUARDING. NO REBOUND TENDERNESS. NO SHAH SIGN. NO MCBURNEY. EXTREMITIES: TRACE BILATERAL EDEMA.. NO CYANOSIS CLUBBING NOTED. NEURO: CRANIAL NERVES 2-12 GROSSLY INTACT. NO FOCAL NEUROLOGICAL DEFICIT NOTED. MSK: NORMAL RANGE OF MOTION FOR AGE. NO JOINT EFFUSION. SKIN: NORMAL FOR ETHNICITY; NO ECCHYMOSIS. NO LESION. GOOD TURGOR.; NO RASHES : NORMAL EXTERNAL GENITALIA. PSYCH : APPROPRIATE MOOD AND AFFECT. ALERT AWAKE ORIENTED X3 Objective Labs Result Diagrams: 02/07/21 13:35 02/07/21 13:35 Labs: Laboratory Results - last 24 hr 02/07/21 02/07/21 13:35 13:35 WBC 7.5 RBC 4.65 Hgb 15.7 Hct 46.0 MCV 99.1 MCH 33.7 MCHC 34.0 RDW 12.9 Plt Count 228 Neut % (Auto) 52.4 D Lymph % (Auto) 40.4 H D [place] % (Auto) 5.8 Eos % (Auto) 0.9 L Baso % (Auto) 0.5 Neut # (Auto) 3900 Lymph # (Auto) 3000 [place] # (Auto) 400 Eos # (Auto) 100 Baso # (Auto) 0 Sodium 141 Potassium 3.4 Chloride 107 Carbon Dioxide 27 BUN 10 Creatinine 0.80 Estimated GFR > 60.0 BUN/Creatinine Ratio 12.5 Glucose 93 Calcium 9.8 Phosphorus 2.8 Total Bilirubin 0.9 AST 33 ALT 44 H Alkaline Phosphatase 79 Total Protein 7.1 Albumin 4.2 Globulin 2.9 Albumin/Globulin Ratio 1.4 [facility] Medical History Acne (1963) Anxiety Cataract (2014) Chicken pox Chronic cough Chronic cough Depression Discomfort of right hip DVT (deep venous thrombosis) (1997) Femoral-femoral bypass graft thrombosis, left (1998) Greater trochanteric bursitis of left hip Lung nodule Measles Mumps Plantar warts (1974) Seborrheic keratosis Substance abuse Surgical History Anesthesia History of cataract removal with insertion of prosthetic lens (01/2015) History of gynecologic surgery (1975) History of hip replacement (2012) History of intestinal surgery (05/1996) History of intestinal surgery (10/1996) History of knee surgery History of partial knee replacement (2005) History of tonsillectomy (1959) History of vein stripping (11/1997) Status post appendectomy (1980) Status post delivery (1983) Status post delivery (1985) Status post LASIK surgery (2000) Family History Father Lung cancer Heart disease High cholesterol Mother Lung cancer Brother Heart attack Grandmother Heart disease Social History household members: spouse Smoking Status: Former smoker alcohol intake: current Assessment & Plan Assessment & Plan narrative: PROBLEM LIST SMALL-BOWEL OBSTRUCTION. LIKELY PARTIAL. SURGERY TEAM IS ON BOARD COPD PER HISTORY HYPERTENSION PER HISTORY PLAN PATIENT HAS BEEN RESTARTED ON ORAL INTAKE ASSISTANCE FROM SURGERY GREATLY APPRECIATED PLAN FOR GASTROGRAFIN CHALLENGE NOTED FROM THE SURGICAL TEAM PN TODAY WILL CONTINUE TO FOLLOW CLOSELY LABS AND VITAL SIGNS REMAINED STABLE PATIENT CONTINUED TO REPORT PASSING GAS NO ADDITIONAL BOWEL MOVEMENT REPORTED OVER THE LAST 12 HOURS CONTINUE TO FOLLOW LAB CLOSELY MONITOR INPUT AND OUTPUT CLOSELY WELL INCENTIVE SPIROMETER ORDERED FOR PATIENT TO USE WHILE AWAKE PATIENT TO BE OUT OF BED WITH EACH MEAL WILL DISCHARGE ONCE CLEARED BY SURGICAL TEAM Time Spent With Patient Critical Care time: I spent a total of [] minutes of critical care time on this patient's care today; this time is exclusive of procedural time. Quality VTE Deep Vein Thrombosis/Pulmonary Embolism Present on Admission: No
[2021-02-07] MEDS: SODIUM CHLORIDE 0.9% 1,000 ML 100 ML IV (17:26)
--- NOTE | 2021-02-07 17:41 | PM.PN.1 ---
Subjective Subjective Date Patient Seen: 02/07/21 Time Patient Seen: 17:42 Interval history: Gastrograffin shows up in the colon on the film at 1643 Exam Vital Signs (past 8 hours): Oxygen Delivery Method Room Air Oxygen Flow Rate 0 Narrative Exam Narrative: irritable Objective Labs Result Diagrams: 02/07/21 13:35 02/07/21 13:35 Labs: Laboratory Results - last 24 hr 02/07/21 02/07/21 13:35 13:35 WBC 7.5 RBC 4.65 Hgb 15.7 Hct 46.0 MCV 99.1 MCH 33.7 MCHC 34.0 RDW 12.9 Plt Count 228 Neut % (Auto) 52.4 D Lymph % (Auto) 40.4 H D [place] % (Auto) 5.8 Eos % (Auto) 0.9 L Baso % (Auto) 0.5 Neut # (Auto) 3900 Lymph # (Auto) 3000 [place] # (Auto) 400 Eos # (Auto) 100 Baso # (Auto) 0 Sodium 141 Potassium 3.4 Chloride 107 Carbon Dioxide 27 BUN 10 Creatinine 0.80 Estimated GFR > 60.0 BUN/Creatinine Ratio 12.5 Glucose 93 Calcium 9.8 Phosphorus 2.8 Total Bilirubin 0.9 AST 33 ALT 44 H Alkaline Phosphatase 79 Total Protein 7.1 Albumin 4.2 Globulin 2.9 Albumin/Globulin Ratio 1.4 PFSH Medical History Acne (1963) Anxiety Cataract (2014) Chicken pox Chronic cough Chronic cough Depression Discomfort of right hip DVT (deep venous thrombosis) (1997) Femoral-femoral bypass graft thrombosis, left (1998) Greater trochanteric bursitis of left hip Lung nodule Measles Mumps Plantar warts (1974) Seborrheic keratosis Substance abuse Surgical History Anesthesia History of cataract removal with insertion of prosthetic lens (01/2015) History of gynecologic surgery (1975) History of hip replacement (2012) History of intestinal surgery (05/1996) History of intestinal surgery (10/1996) History of knee surgery History of partial knee replacement (2005) History of tonsillectomy (1959) History of vein stripping (11/1997) Status post appendectomy (1980) Status post delivery (1983) Status post delivery (1985) Status post LASIK surgery (2000) Family History Father Lung cancer Heart disease High cholesterol Mother Lung cancer Brother Heart attack Grandmother Heart disease Social History household members: spouse Smoking Status: Former smoker alcohol intake: current Assessment & Plan Assessment and plan (1) Small bowel obstruction: Status: Acute Plan Gastrograffin in the colon shows there is on ongoing active obstruction. Ok to advance diet as tolerates and discharge home Time Spent With Patient Critical Care time: I spent a total of [] minutes of critical care time on this patient's care today; this time is exclusive of procedural time. Quality VTE Deep Vein Thrombosis/Pulmonary Embolism Present on Admission: No
[2021-02-07 18:05] VITALS: BP 146/86; PULSE 59; RESP 16; TEMP 36.1; O2SAT 96
[2021-02-07 19:00] VITALS: O2SAT 99
[2021-02-07 20:55] VITALS: O2SAT 97
[2021-02-07] MEDS: FAMOTIDINE 20 MG TABLET PO (21:32)
[2021-02-08] VITALS: BP 143/93; PULSE 96; RESP 20; TEMP 36.6; O2SAT 99
[2021-02-08 07:20] VITALS: O2SAT 99
[2021-02-08 08:11] VITALS: BP 151/86; PULSE 84; RESP 16; TEMP 36.1; O2SAT 100
[2021-02-08] MEDS: FAMOTIDINE 20 MG TABLET PO (08:48)
[2021-02-08] MEDS: diazePAM 5 MG TABLET PO (08:48)
[2021-02-08] MEDS: ENOXAPARIN 40 MG/0.4 ML SYRINGE SUBCUT (08:48)
--- NOTE | 2021-02-08 11:17 | P.DS_ITS ---
History of Present Illness History of Present Illness Date Patient Seen: 02/08/21 Chief complaint: Small-bowel obstruction Narrative: History of Present Illness History of Present Illness Narrative: Ms. Chavez is a 70W with PMH of multiple bowel obstruction s/p surgery, GERD, possible COPD who presents with abdominal pain and vomiting. She said she started feeling sick on Sunday, now 4 days ago. She noted vomiting, abdominal pain, and diarrhea. She started to feel slightly improved on , and Sunday she thought she was feeling better. However Sunday she noted worsening abdominal pain, nausea, no appetite. She has not had fevers. She did not have any bowel movement since Sunday until having a small bowel movement prior to coming in to the ED. No bleeding noted. She has had a cough and was told she had possible COPD exacerbation and given steroids. She states she has never had pulmonary function testing. She is seeing general surgery for consideration of an EGD to evaluate for GERD. ?She has underwent surgery for bowel obstruction due to adhesions twice in the past, the last time in the mid to late 90s. She has also had csections, and appendectomy. In the ED workup was done, vitals unremarkable. Labs notable for WBC 15, Hgb 16.8, plts 291, na 142, creatinine 0.92. LFTs ok, lipase normal. UA negative. CT scan read as high grade mechanical bowel obstruction with abrupt transition in anterior mid abdomen with small amount of interloop fluid. General surgery was notified. Patient was given IV fluid and pain medication and admitted for further treatment. Discharge Providers Provider Date of admission: 02/06/21 05:43 Discharge Date: 02/08/21 Primary care physician: Suresh Sauceda MD Consults: 02/06/21 06:18 Consult to Dietitian, Adult Routine Comment: Reason For Exam: 15-20 lb unintentional weight loss 02/06/21 06:35 Consult to General Surgery Routine Comment: Consulting Provider: Patric Monzon Reason for consultation: possible bowel obstruction Discharge provider: Taj Villareal DO Summary Hospital Course Discharge Diagnosis: SMALL-BOWEL OBSTRUCTION.? LIKELY PARTIAL.? HISTORY OF PRIOR OBSTRUCTION R EQUIRING SURGERY. RESOLVED COPD PER HISTORY HYPERTENSION PER HISTORY Hospital Course: THIS IS A 70-YEAR-OLD FEMALE ADMITTED TO THE HOSPITAL IN SUSPICION TO POSSIBLE SMALL-BOWEL OBSTRUCTION. HOWEVER SHE HAD A LARGE BOWEL MOVEMENT RIGHT AFTER ADMISSION. SHE CONTINUED TO HAVE MULTIPLE BOWEL MOVEMENTS SINCE THEN. SHE HAS BEEN TOLERATING P.O. WELL. SHE HAS BEEN SEEN BY SURGERY TEAM AND NO INVASIVE WORKUP PLAN. SHE IS FEELING BACK TO HER BASELINE. HER LABS ARE FAIRLY STABLE. SHE WILL BE DISCHARGED TO HOME. ADDITIONAL MANAGEMENT WILL BE DEFERRED TO OUTPATIENT PROVIDERS ACTIVITIES WILL BE TOLERATED SHE WILL BE ON GI SOFT DIET FOLLOW WITH PRIMARY CARE PHYSICIAN WITHIN 1-2 WEEKS FOLLOW-UP WITH GENERAL SURGERY WITHIN 2-4 WEEKS NEEDED PATIENT INSTRUCTED TO RETURN TO THE ER FEELING WORSENING SYMPTOMS AVOID TOBACCO PRODUCTS AVOID ALCOHOL PRODUCTS Status at Discharge Cognitive/behavioral status at discharge: oriented Functional status at discharge: independent ambulation Overall status at discharge: patient is back to baseline Time Spent with Patient Time spent: Greater than 30 minutes Exam Vital Signs (past 8 hours): - 02/08/21 07:20 02/08/21 08:11 Temperature 96.9 F L Pulse Rate 84 Respiratory Rate 16 Blood Pressure 151/86 H Pulse Oximetry 99 100 Oxygen Delivery Method Room Air Oxygen Flow Rate 0 Narrative Exam Narrative: NO ACUTE DISTRESS.? PATIENT IS ALERT ORIENTED X3. VITAL SIGNS STABLE HEAD ATRAUMATIC NORMOCEPHALIC NECK : SUPPLE WITHOUT ADENOPATHY NO CAROTID BRUITS EYE:? EOMI, PERRLA, NORMAL CONJUNCTIVA; NO JAUNDICE CHEST:? REGULAR RATE.? ? NO RUBS.? PMI IS NON DISPLACED.? NO MURMURS; NORMAL S1- S2 PULMONARY:? DECREASED BS OVER THE BASES.? MILD BIBASILAR CRACKLES NOTED; NO INCREASED DULLNESS TO PERCUSSION ABDOMEN:? SOFT.? NONTENDER.? NONDISTENDED.? BOWEL SOUNDS ARE PRESENT IN ALL 4 QUADRANTS AND NORMOACTIVE.? NO PALPATING MASS.? NO GUARDING.? NO REBOUND TENDERNESS.? NO SHAH SIGN.? NO MCBURNEY. ? EXTREMITIES:? TRACE BILATERAL EDEMA..? NO CYANOSIS CLUBBING NOTED. NEURO:? CRANIAL NERVES 2-12 GROSSLY INTACT. NO FOCAL NEUROLOGICAL DEFICIT NOTED. MSK:? NORMAL RANGE OF MOTION FOR AGE.? NO JOINT EFFUSION. SKIN:? NORMAL FOR ETHNICITY; NO ECCHYMOSIS.? NO LESION. ? GOOD? TURGOR.; NO RASHES :? NORMAL EXTERNAL GENITALIA. PSYCH :? APPROPRIATE MOOD AND AFFECT.? ALERT AWAKE ORIENTED X3 Objective Labs Result Diagrams: 02/07/21 13:35 02/07/21 13:35 Labs: Laboratory Results - last 24 hr 02/07/21 02/07/21 13:35 13:35 WBC 7.5 RBC 4.65 Hgb 15.7 Hct 46.0 MCV 99.1 MCH 33.7 MCHC 34.0 RDW 12.9 Plt Count 228 Neut % (Auto) 52.4 D Lymph % (Auto) 40.4 H D [place] % (Auto) 5.8 Eos % (Auto) 0.9 L Baso % (Auto) 0.5 Neut # (Auto) 3900 Lymph # (Auto) 3000 [place] # (Auto) 400 Eos # (Auto) 100 Baso # (Auto) 0 Sodium 141 Potassium 3.4 Chloride 107 Carbon Dioxide 27 BUN 10 Creatinine 0.80 Estimated GFR > 60.0 BUN/Creatinine Ratio 12.5 Glucose 93 Calcium 9.8 Phosphorus 2.8 Total Bilirubin 0.9 AST 33 ALT 44 H Alkaline Phosphatase 79 Total Protein 7.1 Albumin 4.2 Globulin 2.9 Albumin/Globulin Ratio 1.4 PFSH Medical History Acne (1963) Anxiety Cataract (2014) Chicken pox Chronic cough Chronic cough Depression Discomfort of right hip DVT (deep venous thrombosis) (1997) Femoral-femoral bypass graft thrombosis, left (1998) Greater trochanteric bursitis of left hip Lung nodule Measles Mumps Plantar warts (1974) Seborrheic keratosis Substance abuse Surgical History Anesthesia History of cataract removal with insertion of prosthetic lens (01/2015) History of gynecologic surgery (1975) History of hip replacement (2012) History of intestinal surgery (05/1996) History of intestinal surgery (10/1996) History of knee surgery History of partial knee replacement (2005) History of tonsillectomy (1959) History of vein stripping (11/1997) Status post appendectomy (1980) Status post delivery (1983) Status post delivery (1985) Status post LASIK surgery (2000) Family History Father Lung cancer Heart disease High cholesterol Mother Lung cancer Brother Heart attack Grandmother Heart disease Social History household members: spouse Smoking Status: Former smoker alcohol intake: current Discharge Plan Discharge Plan Patient Disposition: Home Discharge orders & Medications Prescriptions: Continued albuterol sulfate [ProAir HFA] 90 mcg/actuation HFA aerosol inhaler 2 puff inhalation Q6H PRN (Reason: shortness of breath or wheezing) Qty: 18 2RF fluticasone propion-salmeterol 100-50 mcg/dose blister with device 1 inh inhalation BID Qty: 60 0RF prednisone 20 mg tablet 20 mg PO DAILY Qty: 23 0RF Rx Instructions: T 2T PO QD for 5D then 1T Po QD for 5D then 1/2T PO QD for 5D Follow up/Referrals: Suresh Sauceda MD [Primary Care Provider] - Diet/Activity/Treatments Diet: Regular and Low-cholesterol Activity: TOLERATED Skin/Wound/Dressing Care Report to your healthcare provider any signs of infection, such as:: chills, fever and night sweats Discharge Data Primary Care Provider: Suresh Sauceda Quality VTE Deep Vein Thrombosis/Pulmonary Embolism Present on Admission: No
[2021-02-08 11:39] VITALS: O2SAT 100
--- NOTE | 2021-02-08 14:30 | PC.NURSE ---
Late Entry; Patient's came down to my office. He requested assistance with patient discharge. He states that she is dressed and ready to go, but they have been waiting for further instructions. Primary RN reports that she had discussed with patient waiting to see how she tolerated advancement of diet before discharge. Pt denies nausea, denies pain. Review of discharge instruction, patient and spouse asking appropriate questions. They denied further need. Discharged via wc to home in private vehicle.
== END 2021-02-08 14:04 | disposition home or self-care (01) | DRG 390 ==
LOC: ED 05:32 → AC 09:46
PROVIDERS: Hospitalist; Admitting Provider Internal Medicine; Emergency Provider Emergency Medicine; PCP Family Medicine; Referring Provider Emergency Medicine; Visit Provider Internal Medicine
DX: K56.600 Partial intestinal obstruction, unspecified as to cause (principal); R05.9 Cough, unspecified; Z20.822 Contact with and (suspected) exposure to COVID-19; Z87.891 Personal history of nicotine dependence; K21.9 Gastro-esophageal reflux disease without esophagitis; I10 Essential (primary) hypertension
CPT/HCPCS: 36415; 74018; 74019; 74177; 80053; 81003; 83690; 84100; 85025; 87635; 94640; 94760; 96361; 96374; 99231; 99232; 99284; C9803; A9270; C9113; J1650; J1885; J7050; J7613; Q9967

== ENCOUNTER → 2021-03-10 11:00 | Outpatient (CLI) | payer MEDICARE, OTHER, SELFPAY ==
[2021-02-06 05:47] VITALS: BMI 25.2
[2021-03-10 12:04] LABS: COVID19 -Nasal RAPID Negative (Negative)
== END ==
PROVIDERS: PCP Family Medicine; Referring Provider Internal Medicine; Visit Provider Internal Medicine
DX: Z20.822 Contact with and (suspected) exposure to COVID-19 (principal)
CPT/HCPCS: 87635; C9803

== ENCOUNTER → 2021-03-11 10:48 | Outpatient (CLI) | payer MEDICARE, OTHER, SELFPAY ==
[2021-01-05 15:46] VITALS: BMI 24.2
[2021-02-06 05:47] VITALS: BMI 25.2
--- NOTE | 2021-03-16 09:57 | PM.PFT.1 ---
Pulmonary Function Test Referral & Results Date Patient Seen: 03/11/21 Requesting provider: Suresh Sauceda Results: The spirometry demonstrates an FVC of 3.30 L which is 99% of predicted. The FEV1 was measured at 2.23 L which is 88% of predicted. The FEV1/FVC ratio was 67 which is 88% of predicted. Following the administration of bronchodilator there was a 9% improvement in FEV1 and a 45% improvement in FEF 25-75% Lung volumes show an SVC of 3.39 L which is 108% of predicted. The diffusing capacity was measured at 24.98 which is 88% of predicted. The maximum voluntary ventilation was normal Interpretation: This study demonstrates probably normal spirometry however there is some improvement following bronchodilator and shape a flow volume loop is also concave suggesting the possibility of very mild obstructive lung disease Otherwise normal PFTs
== END ==
PROVIDERS: PCP Family Medicine; Referring Provider Family Medicine; Visit Provider Family Medicine
DX: R05.3 Chronic cough (principal); R91.1 Solitary pulmonary nodule
CPT/HCPCS: 94060; 94726; 94729

== ENCOUNTER → 2021-05-11 10:10 | Outpatient (CLI) | payer MEDICARE, OTHER, SELFPAY ==
[2021-02-06 05:47] VITALS: BMI 25.2
[2021-05-11 11:22] LABS: COVID19 -Nasal RAPID Negative (Negative)
== END ==
PROVIDERS: PCP Family Medicine; Visit Provider Surgery
DX: Z01.812 Encounter for preprocedural laboratory examination (principal); Z20.822 Contact with and (suspected) exposure to COVID-19
CPT/HCPCS: 87635; C9803

== ENCOUNTER 2021-05-12 08:17 | Day surgery (SDC) | payer MEDICARE, OTHER, SELFPAY ==
[2021-02-06 05:47] VITALS: BMI 25.2
--- NOTE | 2021-05-12 | PATH_ITS ---
[facility] Accession Number: [id number] . 01 Material submitted: . PART A: duodenum - DUODENUM BIOPSY PART B: duodenum bulb - DUODENAL BULB PART C: stomach - ANTRUM BIOPSIES PART D: gastrointestinal site - GASTRIC BODY . 02 Diagnosis: A. Duodenum, Biopsy: Duodenal mucosa with no diagnostic abnormality. Negative for active inflammation, features of sprue, dysplasia, or malignancy. . B. Duodenum, Bulb, Biopsy: Duodenal mucosa with gastric heterotopia. Negative for intraepithelial lymphocystosis. Negative for dysplasia and malignancy. . C. Stomach, Antrum, Biopsies: Antral mucosa with mild chronic gastritis. Negative for Helicobacter organisms by immunohistochemistry. Negative for intestinal metaplasia. Negative for dysplasia and malignancy. . D. Stomach, Body, Biopsy: Mild chronic gastritis. Negative for Helicobacter organisms by immunohistochemistry. Negative for intestinal metaplasia. Negative for dysplasia and malignancy. [facility] 05/18/2021 1241 Local . 02 Electronically signed: . Chela Ruano MD, Pathologist NPI- [id number] . 01 Gross description: . Part A: DUODENUM BIOPSY: Received in formalin are 2 fragment(s) of sultana, soft tissue measuring 0.2 x 0.2 x 0.1 cm to 0.2 x 0.1 x 0.1 cm submitted entirely in 1 cassette(s) Part B: DUODENAL BULB: Received in formalin are 4 fragment(s) of sultana, soft tissue measuring 0.3 x 0.2 x 0.2 cm to 0.1 x 0.1 x 0.1 cm submitted entirely in 1 cassette(s) Part C: ANTRUM BIOPSIES: Received in formalin are 4 fragment(s) of sultana, soft tissue measuring 0.3 x 0.1 x 0.1 cm to 0.2 x 0.1 x 0.1 cm submitted entirely in 1 cassette(s) Part D: GASTRIC BODY: Received in formalin are 2 fragment(s) of sultana, soft tissue measuring 0.3 x 0.3 x 0.2 cm to 0.3 x 0.2 x 0.1 cm submitted entirely in 1 cassette(s) /CPE 05/13/2021 0517 Local . 02 Microscopic: . C-D. Immunohistochemical stains were performed on blocks C and D in order to evaluate for Helicobacter organisms and are both negative. The control stain showed appropriate reactivity. . * This test was developed and its performance characteristics determined by [employer]. It has not been cleared or approved by the U.S. Food and Drug Administration. The FDA has determined that such clearance or approval is not necessary. This test is used for clinical purposes. It should not be regarded as investigational or for research. . 02 Pathologist provided ICD-10: R05.3, K21.9 . 02 CPT . 035762, 571643, 409988, 875922, I72937 Specimen Comment: A courtesy copy of this report has been sent to [phone] Performed at: 01 [facility] [address] [place] [address], [place], [place] [id number] MD Delfino Pruitt MD Phone: [phone] Performed at: 02 [facility] [place] [address] [place], [place] [id number] MD Chela Ruano MD Phone: [phone]
[2021-05-12] MEDS: LACTATED RINGERS 1,000 ML 150 ML IV (08:37)
[2021-05-12 08:46] VITALS: BP 120/76; PULSE 80; RESP 18; TEMP 36.1; O2SAT 98; BMI 25.8
--- NOTE | 2021-05-12 09:41 | PM.HP.1 ---
History of Present Illness History of Present Illness Date Patient Seen: 05/12/21 Time Patient Seen: 09:41 Chief complaint: EGD Narrative: Viviana is here for her EGD. She continues to have primarily symptoms of cough and reflux. She does not report any significant abdominal pain other than when she is having a ?bowel obstruction?. Patient History Medical History Acne (1963) Anxiety Cataract (2014) Chicken pox Chronic cough Chronic cough Depression Discomfort of right hip DVT (deep venous thrombosis) (1997) Femoral-femoral bypass graft thrombosis, left (1998) Greater trochanteric bursitis of left hip Lung nodule Measles Mumps Plantar warts (1974) Seborrheic keratosis Substance abuse Surgical History Anesthesia History of cataract removal with insertion of prosthetic lens (01/2015) History of gynecologic surgery (1975) History of hip replacement (2012) History of intestinal surgery (05/1996) History of intestinal surgery (10/1996) History of knee surgery History of partial knee replacement (2005) History of tonsillectomy (1959) History of vein stripping (11/1997) Status post appendectomy (1980) Status post delivery (1983) Status post delivery (1985) Status post LASIK surgery (2000) Family & Social History Family History Father Lung cancer Heart disease High cholesterol Mother Lung cancer Brother Heart attack Grandmother Heart disease Social History: household members spouse Tobacco & Substance use: Tobacco type cigarettes Smoking Status Former smoker alcohol intake former alcohol intake frequency 0-2 drinks per day Substance Use Type does not use Meds Home Medications and Allergies Home Medications Medication Instructions Recorded Confirmed Type venlafaxine 37.5 mg 37.5 mg PO TID cap 02/17/21 05/12/21 History capsule,extended release 24 hr (Effexor XR) diazepam 10 mg tablet See Rx Instructions .ROUTE 05/05/21 05/12/21 Rx .COMPLEX #90 tab albuterol sulfate 90 mcg/actuation 2 puff INHALATION Q6H PRN #18 g 05/06/21 05/12/21 Rx aerosol inhaler (ProAir HFA) aspirin 81 mg chewable tablet 81 mg PO DAILY 05/12/21 05/12/21 History Allergies Allergy/AdvReac Type Severity Reaction Status Date / Time No Known Drug Allergies Allergy Verified 05/12/21 08:44 Exam Vital Signs (past 8 hours): - 05/12/21 08:46 Temperature 97 F L Pulse Rate 80 Respiratory Rate 18 Blood Pressure 120/76 Pulse Oximetry 98 Oxygen Delivery Method Room Air Const General: healthy appearing Resp Effort & Inspection: normal respiratory effort GI Palpation: soft Assessment & Plan Assessment and plan (1) Chronic cough: Status: Acute Plan Plan for EGD today. We reviewed the risks and benefits and she would like to proceed. Denies any significant abdominal pain after meals so she is not interested in undergoing ultrasound of gallbladder at this time. COVID-19 COVID-19 status: Negative Result date/Date tested (Pos, Neg/Pending): 05/11/21 Time Spent With Patient Critical Care time: I spent a total of [] minutes of critical care time on this patient's care today; this time is exclusive of procedural time.
[2021-05-12] MEDS: LIDOCAINE 4% SOLN 50 ML 20 ML TOP (09:43)
[2021-05-12] MEDS: MIDAZOLAM 5 MG/5 ML VIAL IV (09:44)
[2021-05-12] MEDS: fentaNYL 250 MCG/5 ML INJ IV (09:44)
--- NOTE | 2021-05-12 10:13 | PM.OP.EGD ---
Operative Date/Time/Diagnoses Date of procedure: 05/12/21 Time of procedure: 10:13 Pre-op diagnosis: Reflux Post-op diagnosis: same Procedure & Clinicians Study performed: Esophagogastroduodenoscopy Same procedure as scheduled: Yes Surgeon: Patric Monzon Procedure Notes Procedure in detail: A timeout was performed. A bite blocked was placed. The patient was positioned in the left lateral decubitus position. The endoscope was inserted through the bite block and passed through the esophagus and stomach and into the duodenum. The duodenal mucosa appeared normal. Random biopsies were taken from the duodenum with cold forceps. The scope was withdrawn into the duodenal bulb and there was some hypertrophic mucosa which was biopsied again with random biopsies. The scope was withdrawn into the stomach. No ulcers were seen. Random biopsies were taken from the antrum with forceps. There is some mild patchy gastritis in the body of the stomach was biopsied with forceps. The scope was retroflexed and a small hiatal hernia was visible. The scope was withdrawn into the esophagus and no abnormalities were noted at the GE junction and the Z-line was normal. The remainder of the esophagus was normal. The scope was withdrawn. The patient was awakened and brought to recovery. Versed 17 Fentanyl 150 Sedation minutes: 26 Post-procedure Recommendations: Will call with biopsy results Disposition: PACU
[2021-05-12 10:18] VITALS: BP 124/78; PULSE 85; RESP 18; TEMP 36; O2SAT 91
[2021-05-12 10:23] VITALS: BP 116/76; PULSE 84; RESP 12; O2SAT 96
[2021-05-12 10:38] VITALS: BP 137/76; PULSE 71; RESP 15; O2SAT 97
[2021-05-12 10:50] VITALS: BP 141/76; PULSE 73; RESP 15; O2SAT 98
--- NOTE | 2021-05-12 10:51 | SUR.PHASEI ---
Discharge instructions reviewed with pt and she verbalized understanding.
[2021-05-12 11:03] VITALS: BP 134/77; PULSE 76; RESP 15; O2SAT 98
== END 2021-05-12 11:05 | disposition home or self-care (01) ==
PROVIDERS: PCP Family Medicine; Referring Provider Surgery; Visit Provider Surgery
PROC: 0DJ08ZZ Inspection of Upper Intestinal Tract, Via Natural or Artificial Opening Endoscopic (ICD-10-PCS; CPT 43235; principal; 2021-05-12 09:30)
DX: K21.9 Gastro-esophageal reflux disease without esophagitis (principal); K29.70 Gastritis, unspecified, without bleeding; K44.9 Diaphragmatic hernia without obstruction or gangrene; K29.50 Unspecified chronic gastritis without bleeding; Q43.8 Other specified congenital malformations of intestine
CPT/HCPCS: 43239; 99152; 99153; J2250; J3010

== ENCOUNTER → 2021-07-05 08:04 | Outpatient (CLI) | payer MEDICARE, OTHER, SELFPAY ==
[2021-02-06 05:47] VITALS: BMI 25.2
--- NOTE | 2021-07-05 08:06 | DI.US.S_ITS ---
PROCEDURE: US ABDOMEN LIMITED INDICATIONS: ABDOMINAL PAIN TECHNIQUE: Real-time focused scanning was performed of the abdomen, with image documentation. COMPARISON: [facility], US, ABDOMEN COMPLETE, 08/17/2011, 9:50. [facility], CT, CT ABDOMEN PELVIS W CON, 02/06/2021, 4:09. FINDINGS: The liver is normal in size and demonstrates no focal lesions. The main portal vein demonstrates normal size and demonstrates normal appearing, hepatopetal flow. No findings of gallstones or sludge are seen. The gallbladder wall is not thickened, measuring 3 mm or less. No specific pericholecystic fluid is seen. The sonographic Ortiz sign is negative. There is no biliary dilatation, the common bile duct measures 6 mm. No significant pancreatic abnormality is seen on these images. IMPRESSION: The gallbladder demonstrates a normal sonographic appearance. No biliary dilatation is seen. Dictated by: Sergo Cobb M.D. on 07/05/2021 at 10:29 Approved by: Sergo Cobb M.D. on 07/05/2021 at 10:30
== END ==
PROVIDERS: PCP Family Medicine; Referring Provider Surgery; Visit Provider Surgery
DX: R10.9 Unspecified abdominal pain (principal)
CPT/HCPCS: 76705

== ENCOUNTER → 2021-08-11 14:55 | Outpatient (CLI) | payer MEDICARE, OTHER, SELFPAY ==
[2021-02-06 05:47] VITALS: BMI 25.2
[2021-08-11 15:36] LABS: Appearance Urine UA CLEAR; Bilirubin Urine UA NEGATIVE (NEGATIVE); Color Urine UA YELLOW; Glucose Urine UA NEGATIVE (Negative); Ketones Urine UA NEGATIVE (NEGATIVE); Leukocyte Esterase Urine UA NEGATIVE (NEGATIVE); Nitrite Urine UA NEGATIVE (Negative); Occult Blood Urine UA NEGATIVE (Negative); Protein Urine UA NEGATIVE (Negative); Specific Gravity Urine UA 1.025 (1.000-1.035); Urobilinogen Urine UA 0.2 E.U./dL (0.2)
[2021-08-11 15:40] LABS: Add Manual Diff / Slide Review NO; Basophils Absolute Auto 100 /uL (0-100); Basophils Percent Auto 1.1 % (0-2); Eosinophils Absolute Auto 100 /uL (0-450); Eosinophils Percent Auto 1.9 % (2-4); Hematocrit 42.8 % (36-46); Hemoglobin 14.3 g/dL (12.0-16.0); Lymphocytes Absolute Auto 2000 /uL (1100-4500); Lymphocytes Percent Auto 37.1 % (25-40); Mean Corpuscular HGB Conc 33.5 % (30-36); Mean Corpuscular Hemoglobin 32.9 PG (26-34); Mean Corpuscular Volume 98.3 fL (80-100); Monocytes Absolute Auto 500 /uL (0-900); Monocytes Percent Auto 9.5 % (3-14); Neutrophils Absolute Auto 2700 /uL (1500-7000); Neutrophils Percent Auto 50.4 % (50-75); Platelet Count 192 X10^3/uL (150-400); Red Blood Cell Count 4.36 X10^6/uL (4.0-5.2); Red Cell Distribution Width 13.1 % (11.6-14.8); White Blood Cell Count 5.4 X10^3/uL (4.5-11.0)
[2021-08-11 15:44] LABS: Bacteria Urine None Seen; Culture Indicated Urine Cult Not Indicated; RBC Urine None Seen (0-5/HPF); Urine Comments Microscopic Normal; WBC Urine None Seen (0-5/HPF)
[2021-08-11 16:55] LABS: Alanine Aminotransferase 17 IU/L (<35); Albumin 4.2 g/dL (3.5-5.0); Albumin Globulin Ratio 1.2 (1.0-2.8); Alkaline Phosphatase 92 U/L (38-126); Aspartate Aminotransferase 33 IU/L (14-36); BUN Creatinine Ratio 20.8 (6-22); Bilirubin Total 0.5 mg/dL (0.2-1.3); Blood Urea Nitrogen 16 mg/dL (7-17); Calcium 9.2 mg/dL (8.4-10.2); Carbon Dioxide 31 mmol/L (22-32); Chloride 107 mmol/L (98-107); Estimated Glomerular Filt Rate > 60 mL/min (>60); Globulin 3.4 g/dL (1.7-4.1); Glucose 98 mg/dL (80-110); HEMOLYSIS 30 (0-50); Potassium 4.5 mmol/L (3.4-5.1); Sodium 142 mmol/L (137-145); Total Protein 7.6 g/dL (6.3-8.2)
[2021-08-11 18:02] LABS: TSH w/ Reflex to FT4 1.79 uIU/mL (0.47-4.68)
== END ==
PROVIDERS: PCP Family Medicine; Referring Provider Family Medicine; Visit Provider Family Medicine
DX: F32.9 Major depressive disorder, single episode, unspecified (principal); R40.0 Somnolence; R53.83 Other fatigue
CPT/HCPCS: 36415; 80053; 81001; 84443; 85025

== ENCOUNTER → 2021-10-11 12:25 | Outpatient (CLI) | payer MEDICARE, OTHER, SELFPAY ==
[2021-02-06 05:47] VITALS: BMI 25.2
--- NOTE | 2021-10-11 12:28 | DI.RAD.S_ITS ---
PROCEDURE: XR FACIAL BONES MIN 3V INDICATIONS: fall/facial injury TECHNIQUE: 3 views of the facial bones were acquired. COMPARISON: None. FINDINGS: Sinuses: Visualized sinuses demonstrate no air-fluid levels or mucosal thickening. Bones: No fractures. No suspicious bony lesions. Orbital rims and zygomatic arches appear intact. Soft tissues: No suspicious soft tissue densities. IMPRESSION: No acute fracture. No osseous lesion. If symptoms and/or clinical suspicion for pathology persist, further assessment with repeat, or advanced imaging (e.g., CT, MRI, or bone scan) may be helpful for further assessment. Dictated by: Cathy Villanueva M.D. on 10/11/2021 at 14:19 Transcribed by: DAVID on 10/11/2021 at 14:23 Approved by: Cathy Villanueva M.D. on 10/11/2021 at 16:31
--- NOTE | 2021-10-11 12:28 | DI.RAD.S_ITS ---
PROCEDURE: XR KNEE LT 3V INDICATIONS: fall/facial injury TECHNIQUE: 3 views of the knee were acquired. COMPARISON: None. FINDINGS: Bones: No fractures or dislocations. No suspicious bony lesions. Prior medial compartment arthroplasty. Hardware appears intact. No definite adjacent suspicious lucency. Patellofemoral compartment joint space narrowing demonstrated. Soft tissues: No joint effusion. Multiple metal clips project over the soft tissues of the medial knee. Chondrocalcinosis is present. IMPRESSION: No acute fracture visualized. If symptoms persist, follow-up radiographs and/or CT may be helpful for further evaluation. Dictated by: Agus Orozco M.D. on 10/11/2021 at 22:08 Approved by: Agus Orozco M.D. on 10/11/2021 at 22:12
--- NOTE | 2021-10-11 12:28 | DI.RAD.S_ITS ---
PROCEDURE: XR NASAL BONES MIN 3V INDICATIONS: fall/facial injury TECHNIQUE: 3 views of the nasal bones acquired. COMPARISON: None. FINDINGS: Bones: No fractures or dislocations. Nasal septum is midline. Normal nasociliary nerve grooves are noted. Soft tissues: No suspicious soft tissue calcifications. IMPRESSION: No acute fracture. No osseous lesion. If symptoms and/or clinical suspicion for pathology persist, further assessment with repeat, or advanced imaging (e.g., CT) may be helpful for further assessment. Dictated by: Cathy Villanueva M.D. on 10/11/2021 at 14:14 Transcribed by: DAVID on 10/11/2021 at 14:19 Approved by: Cathy Villanueva M.D. on 10/11/2021 at 16:30
== END ==
PROVIDERS: PCP Family Medicine; Referring Provider Family Medicine; Visit Provider Family Medicine
DX: S09.93XA Unspecified injury of face, initial encounter (principal); W19.XXXA Unspecified fall, initial encounter; S89.92XA Unspecified injury of left lower leg, initial encounter
CPT/HCPCS: 70150; 70160; 73562

== ENCOUNTER → 2021-11-10 15:56 | Outpatient (CLI) | payer MEDICARE, OTHER, SELFPAY ==
[2021-10-28 17:43] VITALS: BMI 25.2
[2021-11-10 19:22] LABS: Appearance Urine UA SL CLOUDY; Bilirubin Urine UA NEGATIVE (NEGATIVE); Color Urine UA YELLOW; Glucose Urine UA NEGATIVE (Negative); Ketones Urine UA TRACE (NEGATIVE); Leukocyte Esterase Urine UA 3+ (NEGATIVE); Nitrite Urine UA POSITIVE (Negative); Occult Blood Urine UA TRACE-INTACT (Negative); Protein Urine UA NEGATIVE (Negative); Urobilinogen Urine UA 0.2 E.U./dL (0.2)
[2021-11-10 20:09] LABS: Bacteria Urine Many (>30); Culture Indicated Urine Specimen Cultured; RBC Urine 1-5/HPF (0-5/HPF); Squamous Epithelial Cell Urine None Seen (0-5/HPF); WBC Urine 30-100/HPF (0-5/HPF)
== END ==
PROVIDERS: PCP Family Medicine; Referring Provider Family Medicine; Visit Provider Family Medicine
DX: R30.0 Dysuria (principal)
CPT/HCPCS: 81001; 87077; 87086; 87186

== ENCOUNTER → 2021-12-27 12:27 | Outpatient (CLI) | payer MEDICARE, OTHER, SELFPAY ==
[2021-10-28 17:43] VITALS: BMI 25.2
[2021-12-27 15:33] LABS: Appearance Urine UA CLEAR; Bilirubin Urine UA NEGATIVE (NEGATIVE); Color Urine UA YELLOW; Glucose Urine UA NEGATIVE (Negative); Ketones Urine UA TRACE (NEGATIVE); Leukocyte Esterase Urine UA 3+ (NEGATIVE); Nitrite Urine UA POSITIVE (Negative); Occult Blood Urine UA TRACE-LYSED (Negative); Protein Urine UA TRACE (Negative); Urobilinogen Urine UA 0.2 E.U./dL (0.2); pH Urine UA 5.5 (4.5-8.0)
[2021-12-27 15:34] LABS: Bacteria Urine Many (>30); Culture Indicated Urine Specimen Cultured; RBC Urine None Seen (0-5/HPF); Squamous Epithelial Cell Urine 0-1 /HPF (0-5/HPF); Transitional Epi Cells Urine 1-5/HPF (0-5/HPF); WBC Urine >100/HPF (0-5/HPF)
== END ==
PROVIDERS: PCP Family Medicine; Referring Provider Family Medicine; Visit Provider Family Medicine
DX: N39.0 Urinary tract infection, site not specified (principal)
CPT/HCPCS: 81001; 87077; 87086; 87186

== ENCOUNTER → 2022-01-31 12:17 | Outpatient (CLI) | payer MEDICARE, OTHER, SELFPAY ==
[2021-10-28 17:43] VITALS: BMI 25.2
--- NOTE | 2022-01-31 12:20 | DI.MRI.S_ITS ---
PROCEDURE: MR LUMBAR SPINE WO CON INDICATIONS: Stool incontinence, chronic low back pain TECHNIQUE: Noncontrast sagittal T1 spin echo and T2 fast echo, sagittal STIR, and T2 fast spin echo through the lumbar spine. In cases with scoliosis, additional coronal T2 fast spin echo may be performed. COMPARISON: None. FINDINGS: Image quality: Excellent. Alignment and Curvature: There is trace, approximately 2 millimeters of L2-L3 retrolisthesis. There is mild, approximately 3 millimeters of L3-L4 anterolisthesis. There is mild, approximately 5 millimeters of L4-L5 anterolisthesis. Bone Marrow: Marrow is of normal overall signal. No acute vertebral body compression fractures. Spinal Cord: Conus medullaris terminates at the L1 level. Visualized cord demonstrates normal signal and size. Paraspinous Soft Tissues: No paravertebral masses. T12-L1: Loss of disc signal. No central stenosis. No neural foraminal narrowing. No neural compression. L1-L2: Loss of disc signal. Minimal, diffuse disc bulge. No central stenosis. No neural foraminal narrowing. No neural compression. L2-L3: Loss of disc signal. Mild, diffuse disc bulge. No central stenosis. No neural foraminal narrowing. No neural compression. L3-L4: Loss of disc signal. Mild, diffuse disc bulge. Severe bilateral facet hypertrophy. Mild to moderate narrowing of the central canal. Mild bilateral neural foraminal narrowing. No neural compression. L4-L5: Loss of disc signal. Mild, diffuse disc bulge. Severe bilateral facet hypertrophy. Mild to moderate narrowing of the central canal. Mild bilateral neural foraminal narrowing. No neural compression. L5-S1: Disc has a normal appearance. Mild bilateral facet hypertrophy. No central stenosis. No neural foraminal narrowing. No neural compression. IMPRESSION: Multilevel degenerative disc disease. Multilevel facet arthropathy. No severe central canal narrowing. No severe neural foraminal narrowing. No neural compression. Dictated by: Sandra Hanson MD, PhD on 01/31/2022 at 15:25 Approved by: Sandra Hanson MD, PhD on 01/31/2022 at 15:28
== END ==
PROVIDERS: PCP Family Medicine; Referring Provider Family Medicine; Visit Provider Family Medicine
DX: M51.36 Other intervertebral disc degeneration, lumbar region (principal); M47.816 Spondylosis without myelopathy or radiculopathy, lumbar region; M47.817 Spondylosis without myelopathy or radiculopathy, lumbosacral region; R15.9 Full incontinence of feces
CPT/HCPCS: 72148

== ENCOUNTER → 2022-02-27 13:08 | Outpatient (CLI) | payer MEDICARE, OTHER, SELFPAY ==
[2021-10-28 17:43] VITALS: BMI 25.2
[2022-02-27 14:03] LABS: Influenza A - CEPHEID Flu A NEGATIVE (NEGATIVE); Influenza B - CEPHEID Flu B NEGATIVE (NEGATIVE); Respiratory Syncytial Virus Negative (Negative)
[2022-02-27 14:04] LABS: COVID-19 CEPHEID 4-PLEX PCR Negative (Negative)
== END ==
PROVIDERS: PCP Family Medicine; Visit Provider Student in an Organized Health Care Education/Training Program
DX: R05.1 Acute cough (principal); Z20.822 Contact with and (suspected) exposure to COVID-19
CPT/HCPCS: 0241U

== ENCOUNTER 2022-04-26 04:28 | Emergency (ER) | payer MEDICARE, OTHER, SELFPAY ==
--- NOTE | 2022-04-26 04:35 | DI.RAD.S_ITS ---
PROCEDURE: XR FOREARM LT 2V INDICATIONS: fell,has pain. TECHNIQUE: 2 views of the forearm were acquired. COMPARISON: None. FINDINGS: Bones: There is comminuted intra-articular distal radial metaphyseal fracture with impaction and dorsal angulation. Suspect ulnar styloid fracture. No suspicious bony lesions. There is osteopenia. Soft tissues: No suspicious soft tissue calcifications or masses. IMPRESSION: 1. Distal radial metaphyseal fracture with impaction and angulation. 2. Suspect ulnar styloid fracture. 3. Three-view wrist x-ray is recommend. Dictated by: Paz Leavitt M.D. on 04/26/2022 at 9:16 Approved by: Paz Leavitt M.D. on 04/26/2022 at 9:17
[2022-04-26 04:39] VITALS: BP 143/87; PULSE 82; RESP 17; TEMP 36.1; O2SAT 97; BMI 25.0
--- NOTE | 2022-04-26 05:00 | ED.GENADULT ---
HPI - General Adult General Chief complaint: Extremity Injury, Upper Stated complaint: fell and injured left arm Time Seen by Provider: 04/26/22 04:40 Source: patient Mode of arrival: Ambulatory History of Present Illness HPI narrative: Patient is a 71-year-old female who is here for evaluation of injuries that she sustained when she fell at home and injured her left wrist. In triage she stated that she tripped over her 's cane when she got up to use the restroom however at my evaluation she states she got a little lightheaded and fell over backwards. She did not hit her head. There was no loss of consciousness. She would immediate pain in her left wrist. No other injuries from the event. Related Data Home Medications Medication Instructions Recorded Confirmed aspirin 81 mg chewable tablet 81 mg PO DAILY 05/12/21 04/07/22 Previous Rx's Medication Instructions Recorded albuterol sulfate 90 mcg/actuation 2 puff inhalation Q6H PRN 05/06/21 aerosol inhaler (ProAir HFA) shortness of breath or wheezing #18 grams diazepam 10 mg tablet 10 mg PO TID PRN anxiety #90 tabs 03/17/22 venlafaxine 150 mg 150 mg PO DAILY #90 caps 03/17/22 capsule,extended release 24 hr trazodone 50 mg tablet See Rx Instructions .Route 04/13/22 .COMPLEX #60 tabs gabapentin 300 mg capsule 300 mg PO TID PRN nerve pain #60 04/17/22 caps hydrocodone 5 mg-acetaminophen 325 1 tab PO Q4-6H PRN pain #10 tabs 04/26/22 mg tablet Allergies Allergy/AdvReac Type Severity Reaction Status Date / Time No Known Drug Allergies Allergy Verified 04/07/22 16:23 Review of Systems Constitutional Constitutional: Reports system reviewed and no additional complaints, except as documented Musculoskeletal Musculoskeletal: Reports system reviewed and no additional complaints, except as documented Integumentary/Breasts Skin/Breast: Reports system reviewed and no additional complaints, except as documented Neurologic Neurologic: Reports system reviewed and no additional complaints, except as documented Patient History Medical History Acne (1963) Anxiety Cataract (2014) Chicken pox Chronic cough Chronic cough Depression Discomfort of right hip DVT (deep venous thrombosis) (1997) Femoral-femoral bypass graft thrombosis, left (1998) Greater trochanteric bursitis of left hip Lung nodule Measles Mumps Plantar warts (1974) Seborrheic keratosis Stool incontinence Substance abuse Surgical History Anesthesia History of cataract removal with insertion of prosthetic lens (01/2015) History of gynecologic surgery (1975) History of hip replacement (2012) History of intestinal surgery (05/1996) History of intestinal surgery (10/1996) History of knee surgery History of partial knee replacement (2005) History of tonsillectomy (1959) History of vein stripping (11/1997) Status post appendectomy (1980) Status post delivery (1983) Status post delivery (1985) Status post LASIK surgery (2000) Family History Father Lung cancer Heart disease High cholesterol Mother Lung cancer Brother Heart attack Grandmother Heart disease Social History household members: spouse Smoking Status: Former smoker alcohol intake: former Smoking Status: Former smoker alcohol intake frequency: 0-2 drinks per day Substance Use Type: does not use Exam Initial Vital Signs Initial Vital Signs: Vital Signs Temperature 97 F L 04/26/22 04:39 Pulse Rate 82 04/26/22 04:39 Respiratory Rate 17 04/26/22 04:39 Blood Pressure 143/87 H 04/26/22 04:39 Pulse Oximetry 97 04/26/22 04:39 Oxygen Delivery Method Room Air 04/26/22 04:39 HENMT Head: normal to inspection and normocephalic Cardio Pulses: radial pulses present on the left Skin General: no rashes or lesions noted Neuro Speech: speech normal Extrem Other: Patient with obvious deformity of the left wrist. The left elbow is unremarkable. For call for her to flex and extend the wrist secondary to discomfort. Procedures Orthopedic Splinting/Casting Injury #1: Side: left Upper Extremity Injury Location: wrist Upper Extremity Immobilizer: sugar tong splint Other Orthopedic Equipment: other (Sling) Post splinting neuro exam: no change Post splinting vascular exam: no change Placed by: Provider Course Orders Ordered: ED Orders 04/26/22 04:35 XR forearm LT 2V Stat Discontinued Medications Hydrocodone Bitart/Acetaminophen (Hydrocodone/Acet 5/325 Tablet) 1 tab PO NOW ONE Stop: 04/26/22 04:59 Last Admin: 04/26/22 05:05 Dose: 1 tab Documented By: SAVANNA Hydrocodone Bitart/Acetaminophen (Hydrocodone/Acet 5/325 Prepack) 1 bottle MISC SEEINSTR ONE Stop: 04/26/22 05:00 Last Admin: 04/26/22 05:05 Dose: 1 bottle Documented By: SAVANNA Vital Signs Vital signs: Vital Signs - 8 hr 04/26/22 04:39 Temperature 97 F L Pulse Rate 82 Respiratory Rate 17 Blood Pressure 143/87 H Pulse Oximetry 97 Oxygen Delivery Method Room Air Medical Decision Making Imaging Data Extremity x-ray #1: Radiologist's Impression: Transverse, displaced fracture of the distal radius with dorsal angulation of the distal fracture fragment and associated soft tissue swelling MDM Narrative Medical decision making narrative: Patient is alert oriented. She is neurovascularly intact. X-ray shows distal radius fracture. Splint was placed as described above. Patient tolerated procedure well. She was given care instructions and return precautions. Expressed understanding. Discharge Plan Departure Patient Disposition: Home Clinical Impression: Distal radius fracture, left Instructions: How to Use a Sling, DI for Wrist Fracture, How to Take Care of Your Splint Activity Restrictions/Additional Instructions: The splint that was placed today needs to stay on it stay clean and stay dry. You do need to treat it like a cast. The sling is for your comfort. I do recommend you contact the Orthopedic Department at the number provided below for a follow-up. Return to the emergency department for any new or worsening symptoms. Be careful with taking the pain medication if you also take either your trazodone were your diazepam as all these medications can make you very drowsy. Prescriptions: New hydrocodone-acetaminophen 5-325 mg tablet 1 tab PO Q4-6H PRN (Reason: pain) Qty: 10 0RF No Action albuterol sulfate [ProAir HFA] 90 mcg/actuation HFA aerosol inhaler 2 puff inhalation Q6H PRN (Reason: shortness of breath or wheezing) Qty: 18 2RF trazodone 50 mg tablet See Rx Instructions .ROUTE .COMPLEX Qty: 60 0RF Dose Instruction: TAKE two TABLETs BY MOUTH AT BEDTIME NEEDED FOR INSOMNIA Rx Instructions: TAKE two TABLETs BY MOUTH AT BEDTIME NEEDED FOR INSOMNIA gabapentin 300 mg capsule 300 mg PO TID PRN (Reason: nerve pain) Qty: 60 0RF diazepam 10 mg tablet 10 mg PO TID PRN (Reason: anxiety) Qty: 90 0RF venlafaxine 150 mg capsule,extended release 24hr 150 mg PO DAILY Qty: 90 1RF aspirin 81 mg Tablet,Chewable 81 mg PO DAILY Referrals: Suresh Sauceda MD [Primary Care Provider] - Derek Floyd MD [Physician] - Stand Alone Forms: Patient Portal/API
[2022-04-26] MEDS: HYDROCODONE/ACET 5/325 TABLET 1 TAB PO (05:05)
[2022-04-26] MEDS: HYDROCODONE/ACET 5/325 PREPACK 1 BOTTLE MISC (05:05)
== END 2022-04-26 06:36 | disposition home or self-care (01) ==
PROVIDERS: Emergency Provider Emergency Medicine; PCP Family Medicine
DX: S52.502A Unspecified fracture of the lower end of left radius, initial encounter for closed fracture (principal); W18.30XA Fall on same level, unspecified, initial encounter
CPT/HCPCS: 29125; 73090; 99283

== ENCOUNTER → 2022-09-07 12:03 | Outpatient (CLI) | payer MEDICARE, OTHER, SELFPAY ==
[2021-10-28 17:43] VITALS: BMI 25.2
--- NOTE | 2022-09-07 12:04 | DI.RAD.S_ITS ---
PROCEDURE: XR CHEST 2V INDICATIONS: fall with left-sided chest wall pain TECHNIQUE: 2 views of the chest were acquired. COMPARISON: [facility], CR, XR CHEST 1V, 01/31/2021, 11:00. [facility], CR, XR CHEST 2V, 03/19/2020, 15:56. FINDINGS: Surgical changes and devices: None. Lungs and pleura: No pleural effusion or pneumothorax. Similar streaky basilar opacities, likely scarring and/or atelectasis. Mediastinum: Mediastinal contours are normal. Heart size is normal. Bones and chest wall: No suspicious bony abnormalities. Soft tissues appear unremarkable. IMPRESSION: No acute cardiopulmonary abnormality. Dictated by: Agus Orozco M.D. on 09/07/2022 at 13:50 Approved by: Agus Orozco M.D. on 09/07/2022 at 14:01
== END ==
PROVIDERS: PCP Family Medicine; Referring Provider Family Medicine; Visit Provider Family Medicine
DX: R07.89 Other chest pain (principal)
CPT/HCPCS: 71046

== ENCOUNTER → 2022-10-26 11:39 | Outpatient (CLI) | payer MEDICARE, OTHER, SELFPAY ==
[2021-10-28 17:43] VITALS: BMI 25.2
--- NOTE | 2022-10-26 11:40 | DI.RAD.S_ITS ---
PROCEDURE: XR KNEE RT 3V INDICATIONS: right knee pain, chronic TECHNIQUE: 3 views of the knee were acquired. COMPARISON: [facility], CR, XR KNEE LT 3V, 10/11/2021, 13:21. FINDINGS: Bones: No fractures or dislocations. No suspicious bony lesions. Generalized decreased osseous mineralization noted. Mild joint space narrowing with stippled meniscal calcifications Soft tissues: No joint effusion. Distal SFA atherosclerotic vascular calcification. Vascular surgical clips noted as well IMPRESSION: Osteopenia, degenerative changes and atherosclerotic vascular calcification Approved by: Benja Aragno M.D. on 10/26/2022 at 13:43
== END ==
PROVIDERS: PCP Family Medicine; Referring Provider Family Medicine; Visit Provider Family Medicine
DX: I70.201 Unspecified atherosclerosis of native arteries of extremities, right leg (principal); M85.861 Other specified disorders of bone density and structure, right lower leg; M25.561 Pain in right knee; G89.29 Other chronic pain; Z20.822 Contact with and (suspected) exposure to COVID-19
CPT/HCPCS: 36415; 73562; 86769

== ENCOUNTER → 2022-10-26 11:54 | Outpatient (CLI) | payer MEDICARE, OTHER, SELFPAY ==
[2021-10-28 17:43] VITALS: BMI 25.2
== END ==
PROVIDERS: PCP Family Medicine; Referring Provider Family Medicine; Visit Provider Family Medicine
DX: Z20.822 Contact with and (suspected) exposure to COVID-19 (principal)
CPT/HCPCS: 36415; 86769

== ENCOUNTER → 2022-10-27 15:15 | Outpatient (CLI) | payer MEDICARE, OTHER, SELFPAY ==
[2021-10-28 17:43] VITALS: BMI 25.2
--- NOTE | 2022-10-27 15:17 | DI.RAD.S_ITS ---
Bone Density Report Name: ESTELLA VILLASENOR Age: 72 Sex: Female Ethnicity: White Date of : 1950 Indication: postmenopausal; screening for osteoporosis; Referring Provider: JOBY ZAFAR Study: Bone densitometry was performed. Exam Date: October 27, 2022 Accession number: [id number] Bone Density: Region BMD T-score Z-score Classification AP Spine(L1-L4) 0.838 -1.9 0.4 Osteopenia Femoral Neck (Right) 0.633 -1.9 0.0 Osteopenia Total Hip (Right) 0.740 -1.7 0.0 Osteopenia World Health Organization criteria for BMD impression classify patients as: Normal (T-score at or above -1.0), Osteopenia (T-score between -1.0 and -2.5), or Osteoporosis (T-score at or below -2.5). 10-year Fracture Risk(1): Major Osteoporotic Fracture 13% Hip Fracture 4.5% Reported Risk Factors: [place] (), Neck BMD=0.633, BMI=25.0, smoking (1) FRAX(R) Version 3.08. Fracture probability calculated for an untreated patient. Fracture probability may be lower if the patient has received treatment. Impression: The patient has low bone mass, based on the Total Spine T-score. The patient has an estimated ten-year risk of hip fracture of 4.5% and an estimated ten-year risk of major fracture of 13%, based on the WHO FRAX algorithm. The patient has risk factors, including: smoking. Discussion: BONE DENSITY IS LOW AT ONE OR MORE SKELETAL SITES. THE PATIENT'S BMD AND CLINICAL RISK FACTORS CONTRIBUTE TO THIS PATIENT'S INCREASED RISK OF FRACTURE. This patient's lowest T-score is low at one or more skeletal sites. It meets the World Health Organization's (WHO) criteria for low bone mass (T-score between -1.0 and -2.5). The patient's 10-year risk of hip fracture as calculated by FRAX exceeds the threshold where pharmacological therapy is recommended by the National Osteoporosis Foundation (NOF). However, all treatment decisions require clinical judgment and consideration of individual patient factors, including patient preferences, comorbidities, previous drug use, risk factors not captured in the FRAX model (e.g., frailty, falls, vitamin D deficiency, increased bone turnover, interval significant decline in bone density) and possible under or overestimation of fracture risk by FRAX. The patient should follow a healthful lifestyle (good nutrition with adequate calcium and vitamin D, and appropriate weight-bearing exercise). Follow-Up: Consider a repeat BMD and Vertebral Fracture Assessment (VFA) exam in 2 years or sooner if medically necessary, to reassess this patient's status. Left hip and left forearm omitted due to hardwear. Reported by: SUMA NINA M.D. on 10/27/2022 4:12:00 PM.
== END ==
PROVIDERS: PCP Family Medicine; Referring Provider Family Medicine; Visit Provider Family Medicine
DX: Z13.820 Encounter for screening for osteoporosis (principal); M85.88 Other specified disorders of bone density and structure, other site; Z78.0 Asymptomatic menopausal state
CPT/HCPCS: 77080

== ENCOUNTER → 2022-11-10 10:41 | Outpatient (CLI) | payer MEDICARE, OTHER, SELFPAY ==
[2021-10-28 17:43] VITALS: BMI 25.2
--- NOTE | 2022-11-10 10:42 | DI.US.S_ITS ---
PROCEDURE: US CAROTID DOPPLER BI INDICATIONS: History of visual field defect TECHNIQUE: Color and pulse Doppler interrogation was performed of both carotid systems, with image documentation and velocity measurements. COMPARISON: [facility], , CAROTID ARTERY DOPPLER BILAT, 09/24/2006, 8:38. FINDINGS: Stenosis calculations are based on SRU (Society of Radiologists in Ultrasound) criteria. Right side: Brachial blood pressure: 147/98 mm Hg. Common carotid artery peak systolic velocity: 68 cm/sec. Internal carotid artery peak systolic velocity: 63 cm/sec. Internal carotid artery end diastolic velocity: 22 cm/sec. External carotid artery peak systolic velocity: 69 cm/sec. ICA/CCA peak systolic ratio: 0.9 . Toth scale imaging description: Unremarkable Percent internal carotid artery stenosis: 0 . Vertebral artery: Flow direction is antegrade. Left side: Brachial blood pressure: 132/90 mm Hg. Common carotid artery peak systolic velocity: 66 cm/sec. Internal carotid artery peak systolic velocity: 61 cm/sec. Internal carotid artery end diastolic velocity: 18 cm/sec. External carotid artery peak systolic velocity: 73 cm/sec. ICA/CCA peak systolic ratio: 0.9 . Toth scale imaging description: Unremarkable Percent internal carotid artery stenosis: 0 . Vertebral artery: Flow direction is antegrade. IMPRESSION: Unremarkable duplex carotid ultrasound without evidence of ICA stenosis Approved by: Benja Arango M.D. on 11/10/2022 at 17:04
== END ==
PROVIDERS: PCP Family Medicine; Referring Provider Pediatrics; Visit Provider Pediatrics
DX: I73.9 Peripheral vascular disease, unspecified (principal)
CPT/HCPCS: 93880

== ENCOUNTER → 2022-12-18 14:25 | Outpatient (CLI) | payer OTHER, SELFPAY ==
[2021-10-28 17:43] VITALS: BMI 25.2
--- NOTE | 2022-12-18 14:27 | DI.RAD.S_ITS ---
PROCEDURE: XR RIBS RT MIN 3V W CXR 1V INDICATIONS: right hip and right rib pain after fall. TECHNIQUE: 2 views of the right ribs were acquired, along with a single view chest. COMPARISON: None. FINDINGS: Surgical changes and devices: None. Bones and chest wall: No fractures or dislocations. No suspicious bony lesions. Overlying soft tissues appear unremarkable. Lungs and pleura: No pleural effusions or pneumothorax. Lungs appear clear. Mediastinum: Mediastinal contours appear normal. Heart size is normal. IMPRESSION: No displaced rib fractures visualized. No acute cardiopulmonary findings. Dictated by: Lynn Moreno M.D. on 12/18/2022 at 14:59 Approved by: Lynn Moreno M.D. on 12/18/2022 at 15:00
--- NOTE | 2022-12-18 14:27 | DI.RAD.S_ITS ---
PROCEDURE: XR HIP W PEL IF DONE RT 2V INDICATIONS: right hip and right rib pain after fall. TECHNIQUE: AP pelvis with lateral view(s) of the right hip(s). COMPARISON: [facility], , [id number] W PEL IF PERFORMED, 04/13/2016, 11:34. FINDINGS: Bones: No fractures or dislocations. Pelvic ring appears intact. No suspicious bony lesions. Soft tissues: The visualized bowel gas pattern is normal. No suspicious soft tissue calcifications. IMPRESSION: No acute radiographic findings. If pain persists, cross-sectional imaging or followup imaging in 5-7 days is recommended to exclude occult fracture. Dictated by: Lynn Moreno M.D. on 12/18/2022 at 14:58 Approved by: Lynn Moreno M.D. on 12/18/2022 at 14:59
== END ==
PROVIDERS: PCP Family Medicine; Referring Provider Family Medicine; Visit Provider Family Medicine
DX: R07.81 Pleurodynia (principal); M25.551 Pain in right hip
CPT/HCPCS: 71101; 73502

== ENCOUNTER → 2023-04-17 07:42 | Outpatient (CLI) | payer MEDICARE, OTHER, SELFPAY ==
[2021-10-28 17:43] VITALS: BMI 25.2
[2023-04-17 08:15] LABS: Add Manual Diff / Slide Review NO; Basophils Absolute Auto 100 /uL (0-100); Eosinophils Absolute Auto 100 /uL (0-450); Eosinophils Percent Auto 2.7 % (2-4); Hematocrit 43.9 % (36-46); Hemoglobin 14.7 g/dL (12.0-16.0); Lymphocytes Absolute Auto 2100 /uL (1100-4500); Lymphocytes Percent Auto 41.7 % (25-40); Mean Corpuscular HGB Conc 33.4 % (30-36); Mean Corpuscular Hemoglobin 34.4 PG (26-34); Mean Corpuscular Volume 102.9 fL (80-100); Monocytes Absolute Auto 400 /uL (0-900); Monocytes Percent Auto 8.4 % (3-14); Neutrophils Absolute Auto 2400 /uL (1500-7000); Neutrophils Percent Auto 46.2 % (50-75); Platelet Count 177 X10^3/uL (150-400); Red Blood Cell Count 4.26 X10^6/uL (4.0-5.2); Red Cell Distribution Width 12.9 % (11.6-14.8); White Blood Cell Count 5.1 X10^3/uL (4.5-11.0)
[2023-04-17 08:37] LABS: Alanine Aminotransferase 15 IU/L (<35); Albumin 4.2 g/dL (3.5-5.0); Albumin Globulin Ratio 1.4 (1.0-2.8); Alkaline Phosphatase 88 U/L (38-126); Aspartate Aminotransferase 24 IU/L (14-36); BUN Creatinine Ratio 16.3 (6-22); Bilirubin Total 0.8 mg/dL (0.2-1.3); Blood Urea Nitrogen 14 mg/dL (7-17); Calcium 9.8 mg/dL (8.4-10.2); Carbon Dioxide 27 mmol/L (22-32); Chloride 108 mmol/L (98-107); Cholesterol 253 mg/dL (140-199); Estimated Glomerular Filt Rate > 60 mL/min (>60); Glucose 87 mg/dL (80-110); HDL Cholesterol 70 mg/dL (40-60); HEMOLYSIS < 15 (0-50); LDL Cholesterol Calculated 165 mg/dL (<100); Potassium 3.8 mmol/L (3.4-5.1); Sodium 141 mmol/L (137-145); Total Protein 7.2 g/dL (6.3-8.2); Triglycerides 89 mg/dL (35-150)
[2023-04-17 09:25] LABS: Hep C Virus Ab w/Reflex Quant NEGATIVE s/c (NEGATIVE)
[2023-04-17 13:37] LABS: Creatinine Urine Random 78.4 mg/dL
[2023-04-17 14:05] LABS: Microalbumin Urine Random < 0.6 mg/dL (0-1.6)
[2023-04-18 08:12] LABS: Apolipoprotein B 118 mg/dL (<90)
== END ==
PROVIDERS: PCP Family Medicine; Referring Provider Family Medicine; Visit Provider Family Medicine
DX: E78.2 Mixed hyperlipidemia (principal); F41.9 Anxiety disorder, unspecified; R41.3 Other amnesia
CPT/HCPCS: 36415; 80053; 80061; 82043; 82172; 82570; 84443; 85025; 86803

== ENCOUNTER → 2023-05-15 13:50 | Outpatient (CLI) | payer MEDICARE, OTHER, SELFPAY ==
[2021-10-28 17:43] VITALS: BMI 25.2
[2023-05-15 14:54] LABS: Add Manual Diff / Slide Review NO; Basophils Absolute Auto 0 /uL (0-100); Basophils Percent Auto 0.3 % (0-2); Eosinophils Absolute Auto 0 /uL (0-450); Eosinophils Percent Auto 0.4 % (2-4); Hematocrit 39.2 % (36-46); Hemoglobin 13.2 g/dL (12.0-16.0); Lymphocytes Absolute Auto 1100 /uL (1100-4500); Mean Corpuscular HGB Conc 33.6 % (30-36); Mean Corpuscular Hemoglobin 34.7 PG (26-34); Mean Corpuscular Volume 103.2 fL (80-100); Monocytes Absolute Auto 600 /uL (0-900); Monocytes Percent Auto 7.8 % (3-14); Neutrophils Absolute Auto 5400 /uL (1500-7000); Neutrophils Percent Auto 75.5 % (50-75); Platelet Count 189 X10^3/uL (150-400); Red Blood Cell Count 3.79 X10^6/uL (4.0-5.2); Red Cell Distribution Width 12.4 % (11.6-14.8); White Blood Cell Count 7.2 X10^3/uL (4.5-11.0)
--- NOTE | 2023-05-15 14:54 | DI.RAD.S_ITS ---
PROCEDURE: XR LUMBAR SPINE MIN 4V INDICATIONS: acute of chronic low back pain TECHNIQUE: 5 views of the lumbar spine were acquired, including bilateral oblique views. COMPARISON: MR, MR LUMBAR SPINE WO CON, 01/31/2022, 12:37. FINDINGS: Bones: 5 nonrib-bearing vertebrae are present. There is 5 mm anterolisthesis L4 on L5. Multilevel mild degenerative disc space narrowing. Mild foraminal narrowing is present L4-5, L5-S1.. No vertebral body compression fractures. No suspicious bony lesions. Partially visualized right hip arthroplasty. Soft tissues: Overlying bowel gas pattern is normal. No suspicious soft tissue calcifications. Oblique images: No pars defects. IMPRESSION: Degenerative changes most severe at L4-5, L5-S1. Dictated by: Sujatha Sewell M.D. on 05/15/2023 at 19:20 Approved by: Sujatha Sewell M.D. on 05/15/2023 at 19:21
[2023-05-15 15:17] LABS: Alanine Aminotransferase 22 IU/L (<35); Albumin 3.8 g/dL (3.5-5.0); Alkaline Phosphatase 90 U/L (38-126); Aspartate Aminotransferase 33 IU/L (14-36); BUN Creatinine Ratio 18.3 (6-22); Blood Urea Nitrogen 13 mg/dL (7-17); Calcium 9.3 mg/dL (8.4-10.2); Carbon Dioxide 31 mmol/L (22-32); Chloride 103 mmol/L (98-107); Estimated Glomerular Filt Rate > 60 mL/min (>60); Globulin 3.7 g/dL (1.7-4.1); Glucose 106 mg/dL (80-110); HEMOLYSIS < 15 (0-50); Lipase 57 U/L (23-300); Potassium 3.5 mmol/L (3.4-5.1); Sodium 138 mmol/L (137-145); Total Protein 7.5 g/dL (6.3-8.2)
[2023-05-15 15:22] LABS: Appearance Urine UA CLEAR; Bilirubin Urine UA NEGATIVE (NEGATIVE); Color Urine UA YELLOW; Glucose Urine UA NEGATIVE (Negative); Ketones Urine UA TRACE (NEGATIVE); Leukocyte Esterase Urine UA NEGATIVE (NEGATIVE); Nitrite Urine UA NEGATIVE (Negative); Occult Blood Urine UA NEGATIVE (Negative); Protein Urine UA NEGATIVE (Negative); Specific Gravity Urine UA 1.015 (1.000-1.035)
[2023-05-15 15:35] LABS: Bacteria Urine None Seen; Culture Indicated Urine Cult Not Indicated; RBC Urine None Seen (0-5/HPF); Squamous Epithelial Cell Urine 0-1 /HPF (0-5/HPF); Urine Volume 10mL (spun); WBC Urine None Seen (0-5/HPF)
== END ==
PROVIDERS: PCP Family Medicine; Referring Provider Family Medicine; Visit Provider Family Medicine
DX: K59.00 Constipation, unspecified (principal); R10.9 Unspecified abdominal pain; E78.2 Mixed hyperlipidemia; R41.3 Other amnesia; M54.50 Low back pain, unspecified; G89.29 Other chronic pain; M89.9 Disorder of bone, unspecified
CPT/HCPCS: 72110; 80053; 81001; 83690; 85025

== ENCOUNTER → 2023-05-18 14:30 | Outpatient (CLI) | payer MEDICARE, OTHER, SELFPAY ==
[2021-10-28 17:43] VITALS: BMI 25.2
--- NOTE | 2023-05-18 14:32 | DI.RAD.S_ITS ---
PROCEDURE: XR CERVICAL SPINE 2V OR 3V INDICATIONS: Neck pain TECHNIQUE: 3 view(s) of the cervical spine were acquired. COMPARISON: None. FINDINGS: Bones: No fractures or dislocations to the T1 level. 3 millimeter anterolisthesis of C5 on C6 is seen. Mild degenerative endplate changes are noted throughout cervical spine with bilateral facet hypertrophic changes. The lateral masses of C1 appear intact on the odontoid view. No suspicious bony lesions. Soft tissues: No prevertebral soft tissue swelling. IMPRESSION: Mild degenerative disc disease throughout cervical spine. No acute cervical spine fracture or dislocation. Grade 1 3 millimeter anterolisthesis of C5 on C6. Dictated by: Charanjit Carroll M.D. on 05/18/2023 at 16:44 Approved by: Charanjit Carroll M.D. on 05/18/2023 at 16:45
== END ==
PROVIDERS: PCP Family Medicine; Referring Provider Family Medicine; Visit Provider Family Medicine
DX: M50.30 Other cervical disc degeneration, unspecified cervical region (principal)
CPT/HCPCS: 72040

== ENCOUNTER → 2023-05-25 11:21 | Outpatient (CLI) | payer MEDICARE, OTHER, SELFPAY ==
[2023-05-21 08:37] VITALS: BMI 25.2
--- NOTE | 2023-05-25 11:23 | DI.MRI.S_ITS ---
PROCEDURE: MR LUMBAR SPINE WO CON INDICATIONS: Acute on chronic low back pain TECHNIQUE: Noncontrast sagittal T1 spin echo and T2 fast echo, sagittal STIR, and T2 fast spin echo through the lumbar spine. In cases with scoliosis, additional coronal T2 fast spin echo may be performed. COMPARISON: [facility], MR, MR LUMBAR SPINE WO CON, 01/31/2022, 12:37. [facility], MR, MR CERVICAL SPINE WO CON, 05/25/2023, 12:54. [facility], CR, XR LUMBAR SPINE MIN 4V, 05/15/2023, 15:15. FINDINGS: Image quality: Diagnostic, with note made of motion artifact. Alignment and Curvature: There is minimal retrolisthesis at L1-L2 and L2-L3. Minimal anterolisthesis can be seen at L3-L4 and L4-L5. Bone Marrow: Marrow is of normal overall signal. No acute vertebral body compression fractures. Spinal Cord: Conus medullaris terminates at the L1 level. Visualized cord demonstrates normal signal and size. Paraspinous Soft Tissues: No paravertebral masses. T12-L1: No significant abnormality is seen. L1-L2: The disc height is well-preserved. Loss of disc signal is seen at this level. No significant neural foraminal or central canal narrowing can be seen. L2-L3: The disc height is well-preserved. Loss of disc signal is seen at this level. Mild generalized disc bulge is seen. Mild facet joint hypertrophy is seen. No significant neural foraminal or central canal narrowing can be seen. Stable from the prior study. L3-L4: The disc height is well-preserved. Loss of disc signal is seen at this level. Mild generalized disc bulge is seen. At least moderate facet hypertrophy is seen. Mild bilateral neural foraminal narrowing is seen. Mild central canal narrowing is seen. When comparison is made with the prior images, these findings are similar. L4-L5: The disc height is well-preserved. Loss of disc signal is seen at this level. Mild generalized disc bulge is seen. Moderate to prominent facet hypertrophy can be seen. Moderate bilateral neural foraminal narrowing is seen. Mild to moderate central canal narrowing is seen. These degenerative changes are mildly progressed compared to the prior images. L5-S1: The disc height and disk signal are well-preserved. Mild generalized disc bulge is seen. There is [id number] right-sided and mild left-sided facet hypertrophy. No significant neural foraminal or central canal narrowing can be seen. When comparison is made with the prior images, these findings are similar. IMPRESSION: Multiple levels of lumbar spine degenerative change can be seen, which are overall worst at the L4-L5 level. The degenerative changes at this level have mildly progressed compared to 2021. Otherwise, the degenerative changes appear similar to the prior MRI. Dictated by: Sergo Cobb M.D. on 05/25/2023 at 13:09 Approved by: Sergo Cobb M.D. on 05/25/2023 at 13:13
--- NOTE | 2023-05-25 11:23 | DI.MRI.S_ITS ---
PROCEDURE: MR CERVICAL SPINE WO CON INDICATIONS: Chronic neck pain TECHNIQUE: Noncontrast sagittal T1 spin echo and T2 fast spin echo, sagittal STIR, foraminal oblique sagittal T2 fast spin echo, and axial gradient echo or T2 fast spin echo through the cervical spine. COMPARISON: None. FINDINGS: Image quality: This examination is limited by involuntary motion artifact. Images are repeated, with some improvement. Alignment and Curvature: There is normal bony alignment. Bone Marrow: Marrow demonstrates normal overall signal. Spinal Cord: Visualized spinal cord has normal size and signal. No cerebellar tonsillar herniation. Paraspinous Soft Tissues: No paravertebral masses. Prevertebral soft tissues are normal in thickness. C2-C3: No significant abnormality is seen. C3-C4: The disc height is well-preserved. Loss of disc signal is seen at this level. A mild degree of generalized disc osteophyte complex is seen. Mild facet joint hypertrophy is seen. Moderate bilateral neural foraminal narrowing is seen. No central canal narrowing is seen. C4-C5: The disc height is well-preserved. Loss of disc signal is seen at this level. Mild to moderate disc osteophyte complex is seen. Mild to moderate facet hypertrophy can be seen. Mild bilateral neural foraminal narrowing is seen. No central canal narrowing is seen. C5-C6: The disc height is well-preserved. Loss of disc signal is seen at this level. A mild degree of generalized disc osteophyte complex is seen. There is [id number] right-sided and moderate left-sided facet hypertrophy. There is moderate right-sided and no significant left-sided neural foraminal narrowing. No significant central canal narrowing is seen. C6-C7: The disc height is well-preserved. Loss of disc signal is seen at this level. A mild degree of generalized disc osteophyte complex is seen. Mild facet joint hypertrophy is seen. No neural foraminal narrowing is seen. No central canal narrowing is seen. C7-T1: No significant abnormality is seen. IMPRESSION: Multiple levels of cervical spine degenerative change can be seen. Dictated by: Sergo Cobb M.D. on 05/25/2023 at 13:13 Approved by: Sergo Cobb M.D. on 05/25/2023 at 13:16
== END ==
LOC: MRI 11:22
PROVIDERS: PCP Family Medicine; Referring Provider Anesthesiology; Visit Provider Anesthesiology
DX: M47.812 Spondylosis without myelopathy or radiculopathy, cervical region (principal); M47.816 Spondylosis without myelopathy or radiculopathy, lumbar region; M47.817 Spondylosis without myelopathy or radiculopathy, lumbosacral region; M54.2 Cervicalgia; M54.50 Low back pain, unspecified
CPT/HCPCS: 72141; 72148

== ENCOUNTER → 2023-06-08 10:42 | Outpatient (CLI) | payer MEDICARE, OTHER, SELFPAY ==
[2023-05-21 08:37] VITALS: BMI 25.2
== END ==
PROVIDERS: PCP Family Medicine; Visit Provider Nurse Practitioner Family
DX: R30.0 Dysuria (principal)
CPT/HCPCS: 87077; 87086; 87186

== ENCOUNTER 2023-06-10 15:11 | Emergency (ER) | payer MEDICARE, OTHER, SELFPAY ==
[2023-05-21 08:37] VITALS: BMI 25.2
[2023-06-10 15:25] VITALS: BP 178/83; PULSE 117; RESP 20; TEMP 37.6; O2SAT 99; BMI 23.7
--- NOTE | 2023-06-10 15:44 | DI.MRI.S_ITS ---
PROCEDURE: MR LUMBAR SPINE WO/W CON INDICATIONS: Fever/low back pain/possible abscess TECHNIQUE: Noncontrast sagittal T1 spin echo and T2 fast spin echo, sagittal STIR, axial T1 and T2 fast spin echo through the lumbar spine. In cases with scoliosis, additional coronal T2 fast spin echo may be performed. After the administration of contrast, sagittal and axial T1 spin echo with fat saturation through the lumbar spine. COMPARISON: [facility], , MR LUMBAR SPINE WO CON, 05/25/2023, 12:54. FINDINGS: Image quality: Excellent. Alignment and curvature: There is normal bony alignment. Marrow: Marrow is of normal overall signal. No acute vertebral body compression fractures. No suspicious marrow enhancement. There is extensive soft tissue edema, posterior elements arising from the facet of L1-L2 through L4-L5 and to lesser degree L5-S1. There is intense enhancement surrounding these facets extending through the soft tissues without collection. Edema signal and contrast enhancement stays within the paraspinous soft tissues along the spinous process without extending to the spinal canal Spinal cord: Conus medullaris terminates at the L1 level. Visualized spinal cord demonstrates normal signal, without suspicious enhancement. Paraspinous soft tissues: No paravertebral masses or abnormal enhancement. T12-L1: Normal appearance. L1-L2: Small disc bulge without significant spinal canal stenosis. Mild facet arthrosis. Ligamentum flavum hypertrophy. Facet arthrosis results in mild bilateral foraminal narrowing.. L2-L3: Broad disc bulge results in mild spinal canal stenosis. Facet arthrosis results in no significant foraminal narrowing. L3-L4: Broad disc bulge results in mild spinal canal stenosis. Prominent facet arthrosis and ligamentum flavum hypertrophy. Facet arthrosis results in mild bilateral foraminal narrowing. L4-L5: Small disc bulge results in mild spinal canal stenosis. Prominent facet arthrosis results in mild left and moderate right foraminal narrowing. L5-S1: No significant spinal canal stenosis. Prominent facet arthrosis resulting in mild foraminal narrowing. IMPRESSION: No abscess or organized fluid collection. Extensive edema throughout the paraspinous musculature which appears most intense along the synovium of the facets extending from L1-L2 through L4-L5 and to a lesser degree L5-S1 Multilevel mild disc disease, unchanged. Multilevel mild foraminal narrowing most prominent at the right L4-L5, unchanged. Dictated by: Fox Cortez M.D. on 06/10/2023 at 17:09 Approved by: Fox Cortez M.D. on 06/10/2023 at 17:23
--- NOTE | 2023-06-10 15:49 | ED_ITS ---
HPI - Back Pain/Injury <Fox Kapoor MD - Last Filed: 06/20/23 07:40> General Chief Complaint: Back Pain/Injury Stated Complaint: Back Pain Time Seen by Provider: 06/10/23 15:44 Source: patient and EMS History of Present Illness HPI Narrative: Patient brought in by ambulance from home. at bedside. Has fever and low back pain. Recently treated for UTI with antibiotics in the past week. History chronic back pain but this has been worsening in the past week. No saddle paresthesia no numbness tingling weakness to the legs or feet. He does low back pain. No prior history of surgery to the back. Patient has had Dilaudid in the past without allergic reaction. No bladder or bowel incontinence or retention Related Data Home Medications Medication Instructions Recorded Confirmed aspirin 81 mg tablet,delayed 81 mg PO DAILY 08/08/22 06/15/23 release acetaminophen 500 mg tablet (Pain 500 mg PO Q4H PRN pain 09/22/22 06/15/23 Relief Extra Strength (acetaminophen)) Previous Rx's Medication Instructions Recorded albuterol sulfate 90 mcg/actuation 2 puff PO Q6H PRN for wheezing 10/19/22 aerosol inhaler #8.5 grams cyclobenzaprine 5 mg tablet 5 mg PO TID PRN muscle spasm #60 05/15/23 tabs oxycodone 5 mg tablet 5 mg PO Q6H PRN pain #10 tabs 06/15/23 Allergies Allergy/AdvReac Type Severity Reaction Status Date / Time morphine AdvReac Out of Verified 06/15/23 10:24 body experience Review of Systems <Fxo Kapoor MD - Last Filed: 06/20/23 07:40> Review of Systems Narrative: GENERAL: negative chills, fatigue, malaise, positive fever, negative sweats. HEENT: negative sinus pain, ear pain, sore throat RESPIRATORY: negative dyspnea, cough CARDIOVASCULAR: negative chest pain, palpitations GASTROINTESTINAL: negative nausea, vomiting, abdominal pain : negative dysuria, frequency, hematuria MUSCULOSKELETAL: Positive back pain, muscle or bony pain SKIN: negative rash, skin lesions NEUROLOGIC: negative weakness, numbness ROS Unobtainable: All systems reviewed & are unremarkable except as noted in HPI and below Patient History <Fox Kapoor MD - Last Filed: 06/20/23 07:40> Medical History Cervical spondylosis Lumbar spondylosis Low back pain Neck pain Medial epicondylitis of left elbow Small bowel obstruction Seborrheic keratosis Greater trochanteric bursitis of left hip Lung nodule Discomfort of right hip Chalazion of right lower eyelid Dermatitis Non-penetrating foreign body in left ear canal Pancreatitis Cataract (2014) Chicken pox Measles Mumps Acne (1963) Plantar warts (1974) Anxiety Depression Substance abuse DVT (deep venous thrombosis) (1997) Femoral-femoral bypass graft thrombosis, left (1998) Enteritis (02/17/14) Depression with anxiety Laceration of forearm Surgical History History of partial knee replacement (2005) Status post LASIK surgery (2000) History of vein stripping (11/1997) History of intestinal surgery (10/1996) History of intestinal surgery (05/1996) Anesthesia History of knee surgery History of gynecologic surgery (1975) Status post delivery (1985) Status post delivery (1983) Status post appendectomy (1980) History of tonsillectomy (1959) History of hip replacement (2012) History of cataract removal with insertion of prosthetic lens (01/2015) Family History Father Lung cancer Heart disease High cholesterol Mother Lung cancer Brother Heart attack Grandmother Heart disease Social History household members: spouse Smoking Status: Former smoker alcohol intake: current Smoking Status: Former smoker alcohol intake frequency: 0-2 drinks per day Substance Use Type: does not use Exam <Fox Kapoor MD - Last Filed: 06/20/23 07:40> Narrative Exam Narrative: GENERAL: in no distress, not toxic not dyspneic HEAD: Normocephalic. EYES: Pupils equal round ENT: Mucous membranes moist. NECK: Trachea midline. CARDIOVASCULAR: Regular rate and rhythm RESPIRATORY: Clear to auscultation. Breath sounds equal bilaterally. No wheezes, rales, or rhonchi. GASTROINTESTINAL: Abdomen soft, non-tender EXTREMITIES: No gross deformities. BACK: No flank tenderness. No CVA tenderness. No midline tenderness step-off of the cervical thoracic or lumbar spine. Able to lean forward and back but does have pain. Side bends does trigger pain as well. Patient in supine position. No pain with bilateral straight leg raises. Strong bilateral patellar reflexes. Light touch intact to bilateral feet and toes. Strong bilateral ankle flexion and extension. NEURO: AOx4. Clear speech SKIN: Warm and dry PSYCH: Not anxious, is cooperative Initial Vital Signs Initial Vital Signs: Vital Signs Temperature 99.7 F H 06/10/23 15:25 Pulse Rate 117 H 06/10/23 15:25 Respiratory Rate 20 06/10/23 15:25 Blood Pressure 178/83 H 06/10/23 15:25 Pulse Oximetry 99 06/10/23 15:25 Oxygen Delivery Method Room Air 06/10/23 15:25 <Mallorie Mota DO - Last Filed: 06/11/23 02:31> Initial Vital Signs Initial Vital Signs: Vital Signs Temperature 99.7 F H 06/10/23 15:25 Pulse Rate 117 H 06/10/23 15:25 Respiratory Rate 20 06/10/23 15:25 Blood Pressure 178/83 H 06/10/23 15:25 Pulse Oximetry 99 06/10/23 15:25 Oxygen Delivery Method Room Air 06/10/23 15:25 Course <Fox Kapoor MD - Last Filed: 06/20/23 07:40> Orders Ordered: Discontinued Medications Acetaminophen (Acetaminophen 325 Mg Tablet) 975 mg PO NOW ONE Stop: 06/10/23 15:47 Last Admin: 06/10/23 16:02 Dose: 975 mg Documented By: FREIDA Hydromorphone HCl (Hydromorphone 0.5 Mg Inj) 0.5 mg IV NOW ONE Stop: 06/10/23 15:48 Last Admin: 06/10/23 16:01 Dose: 0.5 mg Documented By: FREIDA Hydromorphone HCl (Hydromorphone 0.5 Mg Inj) 0.5 mg IV NOW ONE Stop: 06/10/23 19:17 Last Admin: 06/10/23 19:21 Dose: 0.5 mg Documented By: FREIDA Sodium Chloride (Normal Saline 0.9%) 1,000 mls @ 1,000 mls/hr IV BOLUS ONE Stop: 06/10/23 16:45 Last Infusion: 06/10/23 17:43 Dose: Infused Documented By: Admin: 06/10/23 15:57 Dose: 1,000 mls/hr Documented By: FREIDA Ceftriaxone Sodium 2,000 mg/ (Sodium Chloride) 100 mls @ 200 mls/hr IV NOW ONE Stop: 06/10/23 17:45 Last Infusion: 06/10/23 19:10 Dose: Infused Documented By: Admin: 06/10/23 18:23 Dose: 200 mls/hr Documented By: FREIDA Ondansetron HCl (Ondansetron 4 Mg/2 Ml Inj) 4 mg IV NOW ONE Stop: 06/10/23 15:48 Last Admin: 06/10/23 15:57 Dose: 4 mg Documented By: FREIDA Oxycodone/Acetaminophen (Oxycodone/Apap 5/325 Prepack) 1 bottle MISC DIRECTED ONE Stop: 06/10/23 19:18 Last Admin: 06/10/23 19:21 Dose: 1 bottle Documented By: FREIDA Vital Signs Vital signs: Vital Signs - 8 hr 06/10/23 19:30 Pulse Rate 86 Respiratory Rate 19 Pulse Oximetry 98 Oxygen Delivery Method Room Air <Mallorie Mota DO - Last Filed: 06/11/23 02:31> Orders Ordered: Discontinued Medications Acetaminophen (Acetaminophen 325 Mg Tablet) 975 mg PO NOW ONE Stop: 06/10/23 15:47 Last Admin: 06/10/23 16:02 Dose: 975 mg Documented By: FREIDA Hydromorphone HCl (Hydromorphone 0.5 Mg Inj) 0.5 mg IV NOW ONE Stop: 06/10/23 15:48 Last Admin: 06/10/23 16:01 Dose: 0.5 mg Documented By: FREIDA Hydromorphone HCl (Hydromorphone 0.5 Mg Inj) 0.5 mg IV NOW ONE Stop: 06/10/23 19:17 Last Admin: 06/10/23 19:21 Dose: 0.5 mg Documented By: FREIDA Sodium Chloride (Normal Saline 0.9%) 1,000 mls @ 1,000 mls/hr IV BOLUS ONE Stop: 06/10/23 16:45 Last Infusion: 06/10/23 17:43 Dose: Infused Documented By: Admin: 06/10/23 15:57 Dose: 1,000 mls/hr Documented By: FREIDA Ceftriaxone Sodium 2,000 mg/ (Sodium Chloride) 100 mls @ 200 mls/hr IV NOW ONE Stop: 06/10/23 17:45 Last Infusion: 06/10/23 19:10 Dose: Infused Documented By: Admin: 06/10/23 18:23 Dose: 200 mls/hr Documented By: FREIDA Ondansetron HCl (Ondansetron 4 Mg/2 Ml Inj) 4 mg IV NOW ONE Stop: 06/10/23 15:48 Last Admin: 06/10/23 15:57 Dose: 4 mg Documented By: FREIDA Oxycodone/Acetaminophen (Oxycodone/Apap 5/325 Prepack) 1 bottle MISC DIRECTED ONE Stop: 06/10/23 19:18 Last Admin: 06/10/23 19:21 Dose: 1 bottle Documented By: FREIDA Vital Signs Vital signs: Vital Signs - 8 hr 06/10/23 19:30 Pulse Rate 86 Respiratory Rate 19 Pulse Oximetry 98 Oxygen Delivery Method Room Air MDM - Back Pain/Injury <Fox Kapoor MD - Last Filed: 06/20/23 07:40> Lab Data 06/10/23 15:48 06/10/23 15:48 Labs: Lab Results 06/10/23 06/10/23 Range/Units 15:48 17:40 WBC 10.3 (4.5-11.0) X10^3/uL RBC 3.75 L (4.0-5.2) X10^6/uL Hgb 12.6 (12.0-16.0) g/dL Hct 37.4 (36-46) % MCV 99.7 (80-100) fL MCH 33.6 (26-34) PG MCHC 33.7 (30-36) % RDW 12.6 (11.6-14.8) % Plt Count 311 (150-400) X10^3/uL Neut % (Auto) 82.2 H (50-75) % Lymph % (Auto) 10.8 L (25-40) % Mcduffie % (Auto) 6.5 (3-14) % Eos % (Auto) 0.0 L (2-4) % Baso % (Auto) 0.5 (0-2) % Neut # (Auto) 8400 H (8656-2965) /uL Lymph # (Auto) 1100 (1726-6467) /uL Mcduffie # (Auto) 700 (0-900) /uL Eos # (Auto) 0 (0-450) /uL Baso # (Auto) 100 (0-100) /uL Sodium 137 (137-145) mmol/L Potassium 4.0 (3.4-5.1) mmol/L Chloride 105 (98-107) mmol/L Carbon Dioxide 22 (22-32) mmol/L BUN 13 (7-17) mg/dL Creatinine 0.72 (0.52-1.04) mg/dL Estimated GFR > 60 (>60) mL/min BUN/Creatinine Ratio 18.1 (6-22) Glucose 125 H (80-110) mg/dL Lactate 1.9 (0.7-2.1) mmol/L Calcium 9.8 (8.4-10.2) mg/dL Total Bilirubin 1.1 (0.2-1.3) mg/dL AST 62 H (14-36) IU/L ALT 36 H (<35) IU/L Alkaline Phosphatase 102 (38-126) U/L Total Protein 8.4 H (6.3-8.2) g/dL Albumin 4.4 (3.5-5.0) g/dL Globulin 4.0 (1.7-4.1) g/dL Albumin/Globulin Ratio 1.1 (1.0-2.8) Procalcitonin 0.09 (<0.5) ng/mL Urine Color Yellow Urine Appearance Clear Urine pH 8.5 H (4.5-8.0) Ur Specific [place] 1.015 (1.000-1.035) Urine Protein 1+ H (Negative) Urine Glucose (UA) Negative (Negative) g/dL Urine Ketones Negative (NEGATIVE) Urine Occult Blood Negative (Negative) Urine Nitrate Negative (Negative) Urine Bilirubin Negative (NEGATIVE) Urine Urobilinogen 1.0 (0.2) E.U./dL Ur Leukocyte Esterase Negative (NEGATIVE) Urine RBC None seen (0-5/HPF) Urine WBC 1-5/hpf (0-5/HPF) Ur Squamous Epith Cells None seen (0-5/HPF) Urine Bacteria None seen (None) Ur Culture Indicated? Cult not indicated Vol Urine Centrifuged 10ml (spun) MDM Narrative Medical decision making narrative: Patient brought in by ambulance from home. at bedside. Has fever and low back pain. Recently treated for UTI with antibiotics in the past week. History chronic back pain but this has been worsening in the past week. No saddle paresthesia no numbness tingling weakness to the legs or feet. He does low back pain. No prior history of surgery to the back. Patient has had Dilaudid in the past without allergic reaction. No bladder or bowel incontinence or retention After history and exam MRI spine Tylenol blood culture procalcitonin lactic acid CBC CMP urinalysis urine culture, Rocephin [facility] Medical records reviewed: No recent visit for this complaint Differential considered: Includes but not limited to epidural abscess acute on chronic back pain UTI sepsis Lab Test results independently reviewed as above. Pertinent findings: WBC 10.3 sodium 137 potassium 4.0 GFR greater than 60 procalcitonin 0.09 AST 62 ALT 36 Independently reviewed EKG Imaging studies independently reviewed: Consultations: Treatments: Tylenol Dilaudid Zofran normal saline Rocephin Re-evaluations: Discussion: Diagnosis: 6:00 p.m. Brennick: Sign out to Dr Mota, MRI lumbar spine is pending. Urinalysis is pending. Rocephin has been given <Mallorie Mota, - Last Filed: 06/11/23 02:31> Lab Data Labs: Lab Results 06/10/23 06/10/23 Range/Units 15:48 17:40 WBC 10.3 (4.5-11.0) X10^3/uL RBC 3.75 L (4.0-5.2) X10^6/uL Hgb 12.6 (12.0-16.0) g/dL Hct 37.4 (36-46) % MCV 99.7 (80-100) fL MCH 33.6 (26-34) PG MCHC 33.7 (30-36) % RDW 12.6 (11.6-14.8) % Plt Count 311 (150-400) X10^3/uL Neut % (Auto) 82.2 H (50-75) % Lymph % (Auto) 10.8 L (25-40) % Mcduffie % (Auto) 6.5 (3-14) % Eos % (Auto) 0.0 L (2-4) % Baso % (Auto) 0.5 (0-2) % Neut # (Auto) 8400 H (3398-8913) /uL Lymph # (Auto) 1100 (4308-5665) /uL [place]duffie # (Auto) 700 (0-900) /uL Eos # (Auto) 0 (0-450) /uL Baso # (Auto) 100 (0-100) /uL Sodium 137 (137-145) mmol/L Potassium 4.0 (3.4-5.1) mmol/L Chloride 105 (98-107) mmol/L Carbon Dioxide 22 (22-32) mmol/L BUN 13 (7-17) mg/dL Creatinine 0.72 (0.52-1.04) mg/dL Estimated GFR > 60 (>60) mL/min BUN/Creatinine Ratio 18.1 (6-22) Glucose 125 H (80-110) mg/dL Lactate 1.9 (0.7-2.1) mmol/L Calcium 9.8 (8.4-10.2) mg/dL Total Bilirubin 1.1 (0.2-1.3) mg/dL AST 62 H (14-36) IU/L ALT 36 H (<35) IU/L Alkaline Phosphatase 102 (38-126) U/L Total Protein 8.4 H (6.3-8.2) g/dL Albumin 4.4 (3.5-5.0) g/dL Globulin 4.0 (1.7-4.1) g/dL Albumin/Globulin Ratio 1.1 (1.0-2.8) Procalcitonin 0.09 (<0.5) ng/mL Urine Color Yellow Urine Appearance Clear Urine pH 8.5 H (4.5-8.0) Ur Specific [place] 1.015 (1.000-1.035) Urine Protein 1+ H (Negative) Urine Glucose (UA) Negative (Negative) g/dL Urine Ketones Negative (NEGATIVE) Urine Occult Blood Negative (Negative) Urine Nitrate Negative (Negative) Urine Bilirubin Negative (NEGATIVE) Urine Urobilinogen 1.0 (0.2) E.U./dL Ur Leukocyte Esterase Negative (NEGATIVE) Urine RBC None seen (0-5/HPF) Urine WBC 1-5/hpf (0-5/HPF) Ur Squamous Epith Cells None seen (0-5/HPF) Urine Bacteria None seen (None) Ur Culture Indicated? Cult not indicated Vol Urine Centrifuged 10ml (spun) Imaging Data Lumbar MRI: Radiologist's Impression: [address] [address] Magnetic Resonance Report Signed Patient: Karlene Chavez MR#: [id number] : 1950 Acct:[id number] Age/Sex: 72 / F Date of Service: 06/10/23 Loc: ED Accession Number: [id number] Procedure: MR lumbar spine wo/w con Ordering Provider: Fox Kapoor MD PROCEDURE: MR LUMBAR SPINE WO/W CON INDICATIONS: Fever/low back pain/possible abscess TECHNIQUE: Noncontrast sagittal T1 spin echo and T2 fast spin echo, sagittal STIR, axial T1 and T2 fast spin echo through the lumbar spine. In cases with scoliosis, additional coronal T2 fast spin echo may be performed. After the administration of contrast, sagittal and axial T1 spin echo with fat saturation through the lumbar spine. COMPARISON: [facility], , MR LUMBAR SPINE WO CON, 05/25/2023, 12:54. FINDINGS: Image quality: Excellent. Alignment and curvature: There is normal bony alignment. Marrow: Marrow is of normal overall signal. No acute vertebral body compression fractures. No suspicious marrow enhancement. There is extensive soft tissue edema, posterior elements arising from the facet of L1-L2 through L4-L5 and to lesser degree L5-S1. There is intense enhancement surrounding these facets extending through the soft tissues without collection. Edema signal and contrast enhancement stays within the paraspinous soft tissues along the spinous process without extending to the spinal canal Spinal cord: Conus medullaris terminates at the L1 level. Visualized spinal cord demonstrates normal signal, without suspicious enhancement. Paraspinous soft tissues: No paravertebral masses or abnormal enhancement. T12-L1: Normal appearance. L1-L2: Small disc bulge without significant spinal canal stenosis. Mild facet arthrosis. Ligamentum flavum hypertrophy. Facet arthrosis results in mild bilateral foraminal narrowing.. L2-L3: Broad disc bulge results in mild spinal canal stenosis. Facet arthrosis results in no significant foraminal narrowing. L3-L4: Broad disc bulge results in mild spinal canal stenosis. Prominent facet arthrosis and ligamentum flavum hypertrophy. Facet arthrosis results in mild bilateral foraminal narrowing. L4-L5: Small disc bulge results in mild spinal canal stenosis. Prominent facet arthrosis results in mild left and moderate right foraminal narrowing. L5-S1: No significant spinal canal stenosis. Prominent facet arthrosis resulting in mild foraminal narrowing. IMPRESSION: No abscess or organized fluid collection. Extensive edema throughout the paraspinous musculature which appears most intense along the synovium of the facets extending from L1-L2 through L4-L5 and to a lesser degree L5-S1 Multilevel mild disc disease, unchanged. Multilevel mild foraminal narrowing most prominent at the right L4-L5, unchanged. Dictated by: Fox Cortez M.D. on 06/10/2023 at 17:09 Approved by: Fox Cortez M.D. on 06/10/2023 at 17:23 [facility] Narrative Medical decision making narrative: Patient brought in by ambulance from home. at bedside. Has fever and low back pain. Recently treated for UTI with antibiotics in the past week. History chronic back pain but this has been worsening in the past week. No saddle paresthesia no numbness tingling weakness to the legs or feet. He does low back pain. No prior history of surgery to the back. Patient has had Dilaudid in the past without allergic reaction. No bladder or bowel incontinence or retention After history and exam MRI spine Tylenol blood culture procalcitonin lactic acid CBC CMP urinalysis urine culture, Rocephin [facility] Medical records reviewed: No recent visit for this complaint Differential considered: Includes but not limited to epidural abscess acute on chronic back pain UTI sepsis Lab Test results independently reviewed as above. Pertinent findings: WBC 10.3 sodium 137 potassium 4.0 GFR greater than 60 procalcitonin 0.09 AST 62 ALT 36 Independently reviewed EKG Imaging studies independently reviewed: Consultations: Treatments: Tylenol Dilaudid Zofran normal saline Rocephin Re-evaluations: Discussion: Diagnosis: . 6:00 p.m. Bretammieick: Sign out to Dr Mota, MRI lumbar spine is pending. Urinalysis is pending. Rocephin has been given. 06/10/2023 Dr. Mota: Patient signed out to myself, patient was seen and evaluated reviewed her history as well as examined patient in the room. Patient's as well as daughter and grandson are at bedside. Patient had reported fever and complained of low back pain recently started 2 days ago with antibiotics. Seen and evaluated by myself chronic back pain worsening. Patient's vitals here overall appear appropriate she had a 99.9 F but nothing higher appreciated. Her urinalysis is negative, her lab work which is noted below does not show any clear sources. Lumbar MR shows no abscess or organized fluid collection extensive edema throughout paraspinous musculature most intense along the synovium in the facets without extending to the spinal canal. Patient has ambulated to the bathroom least once. On examination she is mildly uncomfortable but does not have any midline tenderness on exam, no red flag changes on imaging. No skin changes no swelling unable to palpate changes over the area on her MR much issue she can sit up in bed. She also complains of quite a bit of pain in her knee but her knee exam is normal without any redness swelling or other changes. She does not have any tenderness with palpation. She notes that is seemed to be more of an issue with ambulation today. Denies any urinary incontinence or saddle anesthesia. No issues with bowel incontinence. She describes more pain than weakness terms examination and localizes more to the knee terms of ambulation. She states pain medications today has been quite helpful. She does feel improved although concerned about pain management at home. Reviewed her L-spine MRI Spoke with orthopedic surgery, Dr. Echavarria reviewed L-spine imaging for MRI. Not concerning for infection at this point. Discussed with patient plan for her to continue her oral antibiotics she has had 2 days of for her UTI all your UA is negative would have her continue. Discussed all findings with the patient as well as her family. They feel comfortable with discharge patient is nontoxic appearing and felt appropriate for DC home. Patient did request additional dose of pain medication prior to discharge home. Pain management follow-up with primary care and Dr. Turcios who she is supposed to see for her back. Discharge Plan Departure Patient Disposition: Home Clinical Impression: Acute exacerbation of chronic low back pain, Knee pain, left Activity Restrictions/Additional Instructions: Follow up with your physician for recheck. I did review your MRI results with Dr. Echavarria who is on-call for Orthopedic surgery no specific intervention is required today. I would continue your all antibiotics until completed. You can take Tylenol up to a 1000 mg every 6 hours for pain. If in adequate you can take 1-2 tablets of oxycodone every 6 hours. This medication can make you sleepy do not drive, perform hazardous activities or make any major decisions while taking it. This medication will make you constipated please take a stool softener once to twice daily until stools are soft and regular. Prescription sent to [facility] in [place]. Please return for worsening symptoms persistent fevers, lightheadedness or passing out, persistent vomiting, new weakness, loss of bowel or bladder control, rapidly worsening symptoms, new abdominal back or flank pain or other new or concerning changes. Prescriptions: No Action albuterol sulfate 90 mcg/actuation HFA aerosol inhaler 2 puff PO Q6H PRN (Reason: for wheezing) Qty: 8.5 11RF aspirin 81 mg tablet,delayed release (DR/EC) 81 mg PO DAILY oxycodone 5 mg tablet 5 mg PO Q6H PRN (Reason: pain) Qty: 10 0RF acetaminophen [Pain Relief ES (acetaminophen)] 500 mg tablet 500 mg PO Q4H PRN (Reason: pain) cyclobenzaprine 5 mg tablet 5 mg PO TID PRN (Reason: muscle spasm) Qty: 60 0RF Referrals: Suresh Sauceda MD [Primary Care Provider] - Stand Alone Forms: Patient Portal/API
[2023-06-10 15:56] LABS: Add Manual Diff / Slide Review NO; Basophils Absolute Auto 100 /uL (0-100); Basophils Percent Auto 0.5 % (0-2); Eosinophils Absolute Auto 0 /uL (0-450); Hematocrit 37.4 % (36-46); Hemoglobin 12.6 g/dL (12.0-16.0); Lymphocytes Absolute Auto 1100 /uL (1100-4500); Lymphocytes Percent Auto 10.8 % (25-40); Mean Corpuscular HGB Conc 33.7 % (30-36); Mean Corpuscular Hemoglobin 33.6 PG (26-34); Mean Corpuscular Volume 99.7 fL (80-100); Monocytes Absolute Auto 700 /uL (0-900); Monocytes Percent Auto 6.5 % (3-14); Neutrophils Absolute Auto 8400 /uL (1500-7000); Neutrophils Percent Auto 82.2 % (50-75); Platelet Count 311 X10^3/uL (150-400); Red Blood Cell Count 3.75 X10^6/uL (4.0-5.2); Red Cell Distribution Width 12.6 % (11.6-14.8); White Blood Cell Count 10.3 X10^3/uL (4.5-11.0)
[2023-06-10] MEDS: ONDANSETRON 4 MG/2 ML INJ IV (15:57)
[2023-06-10] MEDS: SODIUM CHLORIDE 0.9% 1,000 ML 1000 ML IV (15:57)
[2023-06-10] MEDS: HYDROMORPHONE 0.5 MG INJ IV ×2 (16:01→19:21)
[2023-06-10] MEDS: ACETAMINOPHEN 325 MG TABLET 975 MG PO (16:02)
[2023-06-10 16:13] LABS: Alanine Aminotransferase 36 IU/L (<35); Albumin 4.4 g/dL (3.5-5.0); Albumin Globulin Ratio 1.1 (1.0-2.8); Alkaline Phosphatase 102 U/L (38-126); Aspartate Aminotransferase 62 IU/L (14-36); BUN Creatinine Ratio 18.1 (6-22); Bilirubin Total 1.1 mg/dL (0.2-1.3); Blood Urea Nitrogen 13 mg/dL (7-17); Calcium 9.8 mg/dL (8.4-10.2); Carbon Dioxide 22 mmol/L (22-32); Chloride 105 mmol/L (98-107); Estimated Glomerular Filt Rate > 60 mL/min (>60); Glucose 125 mg/dL (80-110); HEMOLYSIS < 15 (0-50); Sodium 137 mmol/L (137-145); Total Protein 8.4 g/dL (6.3-8.2)
[2023-06-10 16:14] LABS: Lactate (Lactic Acid) 1.9 mmol/L (0.7-2.1)
--- NOTE | 2023-06-10 16:14 | PC.NURSE ---
Acute on chronic back pain w/ knee pain. Oxycodone taken at home w/ no releif.
--- NOTE | 2023-06-10 16:16 | PC.NURSE ---
Acute on chronic back pain w/ no relief. Pt states she took oxycodone at home w/ no relief. Pt states she has been on antibiotics for two days for UTI.
[2023-06-10 16:30] LABS: Procalcitonin 0.09 ng/mL (<0.5)
[2023-06-10 16:35] VITALS: TEMP 37.7
[2023-06-10 18:13] VITALS: BP 178/83; PULSE 89; RESP 17; O2SAT 98
[2023-06-10 18:18] LABS: Appearance Urine UA CLEAR; Bilirubin Urine UA NEGATIVE (NEGATIVE); Color Urine UA YELLOW; Glucose Urine UA NEGATIVE (Negative); Ketones Urine UA NEGATIVE (NEGATIVE); Leukocyte Esterase Urine UA NEGATIVE (NEGATIVE); Nitrite Urine UA NEGATIVE (Negative); Occult Blood Urine UA NEGATIVE (Negative); Protein Urine UA 1+ (Negative); Specific Gravity Urine UA 1.015 (1.000-1.035)
[2023-06-10 18:22] LABS: pH Urine UA 8.5 (4.5-8.0)
[2023-06-10] MEDS: cefTRIAXone 2,000 MG in SODIUM CHLORIDE 0.9% 100 ML 200 MG IV (18:23)
[2023-06-10 18:28] VITALS: PULSE 93; TEMP 37.1
[2023-06-10 18:31] LABS: Bacteria Urine None Seen; Culture Indicated Urine Cult Not Indicated; RBC Urine None Seen (0-5/HPF); Squamous Epithelial Cell Urine None Seen (0-5/HPF); Urine Volume 10mL (spun); WBC Urine 1-5/HPF (0-5/HPF)
--- NOTE | 2023-06-10 19:12 | PC.NURSE ---
pt ambulated without incident . tolerated well. family at bedside
[2023-06-10] MEDS: OXYCODONE/APAP 5/325 PREPACK 1 BOTTLE MISC (19:21)
[2023-06-10 19:30] VITALS: PULSE 86; RESP 19; O2SAT 98
--- NOTE | 2023-06-10 19:40 | PC.NURSE ---
Pt given Dilaudid prior to d/c. Pt monitored for approx 20min. Pt respirations remained regular and unlabored. Pt ambulated well prior to discharge. aware and okay to dc.
== END 2023-06-10 19:31 | disposition home or self-care (01) ==
PROVIDERS: Emergency Medicine; Emergency Provider Emergency Medicine; PCP Family Medicine
DX: M54.50 Low back pain, unspecified (principal); G89.29 Other chronic pain; M25.562 Pain in left knee; R50.9 Fever, unspecified
CPT/HCPCS: 36415; 72158; 80053; 81001; 83605; 84145; 85025; 87040; 96365; 96375; 96376; 99284; A9579; J0696; J1170; J2405

== ENCOUNTER → 2023-06-22 11:06 | Outpatient (CLI) | payer MEDICARE, OTHER, SELFPAY ==
[2023-05-21 08:37] VITALS: BMI 25.2
[2023-06-22 13:26] LABS: Alanine Aminotransferase 22 IU/L (<35); Albumin 4.1 g/dL (3.5-5.0); Albumin Globulin Ratio 1.3 (1.0-2.8); Alkaline Phosphatase 87 U/L (38-126); Aspartate Aminotransferase 36 IU/L (14-36); BUN Creatinine Ratio 18.6 (6-22); Bilirubin Total 1.1 mg/dL (0.2-1.3); Blood Urea Nitrogen 11 mg/dL (7-17); Calcium 9.6 mg/dL (8.4-10.2); Carbon Dioxide 24 mmol/L (22-32); Chloride 104 mmol/L (98-107); Estimated Glomerular Filt Rate > 60 mL/min (>60); Globulin 3.2 g/dL (1.7-4.1); Glucose 103 mg/dL (80-110); HEMOLYSIS < 15 (0-50); Potassium 3.8 mmol/L (3.4-5.1); Sodium 138 mmol/L (137-145); Total Protein 7.3 g/dL (6.3-8.2)
== END ==
PROVIDERS: PCP Family Medicine; Referring Provider Family Medicine; Visit Provider Family Medicine
DX: R74.8 Abnormal levels of other serum enzymes (principal); M54.50 Low back pain, unspecified; M47.816 Spondylosis without myelopathy or radiculopathy, lumbar region; M47.812 Spondylosis without myelopathy or radiculopathy, cervical region; G89.29 Other chronic pain; M54.2 Cervicalgia
CPT/HCPCS: 36415; 80053; 86803

== ENCOUNTER 2023-07-04 14:26 | Outpatient (CLI) | payer MEDICARE, OTHER, SELFPAY ==
[2023-05-21 08:37] VITALS: BMI 25.2
[2023-07-04] VITALS (8 sets, daily range): BP systolic 134–159; BP diastolic 64–87; PULSE 99–110; RESP 12–18; O2SAT 95–100
--- NOTE | 2023-07-04 15:00 | DI.RAD.S_ITS ---
PROCEDURE: PAIN C/T FACET INJ/BLK 1ST L INDICATIONS: CERVICAL SPONDYLOSIS COMPARISON: None. FINDINGS: Fluoroscopic spot filming was performed to verify placement of spinal needles at the C3, C4 and C5 level(s), as labeled on the films. Appropriate location(s) of the needle tip(s) was confirmed by injection of iodinated contrast. IMPRESSION: Fluoro guidance was provided intraoperatively for left C3 through C5 medial branch block performed by ordering physician. Dictated by: Charanjit Carroll M.D. on 07/04/2023 at 17:22 Approved by: Charanjit Carroll M.D. on 07/04/2023 at 17:24
[2023-07-04] MEDS: MIDAZOLAM 2 MG/2 ML VIAL 0.5 MG IV (15:05)
--- NOTE | 2023-07-04 15:05 | PC.NURSE ---
Pre-Procedure/post-procedure instructions The patient here for pain injections with Dr. Turcios. Patient is a poor historian and seems confused about her medications and discharge instructions. Patient asked this RN to review discharge instructions with her Claus Chavez. This RN spoke at length with patient's in the lobby reviewing the green pain log instructions and the after care instructions for his 's procedure. Claus verbalized understanding of the discharge instructions.
[2023-07-04] MEDS: BUPIVACAINE 0.5% (PF) 10 ML VIAL 5 ML INJ (15:11)
[2023-07-04] MEDS: iopamidoL 15 ML VIAL 3 ML INJ (15:12)
--- NOTE | 2023-07-04 16:48 | P.PCN_ITS ---
Date/Time/Diagnoses Date of procedure: 07/04/23 Time of procedure: 15:00 Procedure Notes Physician: Norris Turcios Total Fluoroscopy time (seconds): 23 Total sedation minutes: 16 Procedure in detail & Post-procedure care: Left C3, 4, 5 Cervical Medial Branch Blocks Indications: Viviana is presenting for treatment of cervical spondylosis with cervical pain. Preoperative diagnosis: Cervical spondylosis Postoperative diagnosis: Same Pre-procedure History: Patient demonstrates today moderate to severe non- radicular neck pain without neurologic deficit aggravated by hyperextension yes Neck pain greater than arm pain? yes Patient today has tenderness over the suspected joint(s) yes History of post-traumatic injury? no Hypertrophic arthropathy yes Neck pain associated with suspected motion segment instability, hypermobility or pseudoarthrosis no Focused Examination: Ax3 Mood and affect are normal Vital Signs: VSS ASA: 2 Consent: Following review of allergies and potential side effects/complications, including, but not necessarily limited to, infection, allergic reaction, local tissue breakdown, stroke, temporary or permanent nerve injury, paralysis, and possible , the patient indicated that they understood and agreed to proceed.? An informed consent document was signed by the patient, witnessed by a nurse and placed in the patient's chart.? Additionally, other treatment options including medications and physical therapy were reviewed with the patient. All questions were answered. Site was then marked. Anesthesia: After review of previous anesthetic history and IV conscious sedation, the patient was deemed safe to proceed with today's procedure with IV conscious sedation. IV sedation was accomplished with midazolam 0.5 mg administered by the RN after order by Dr. Turcios. Sedation was titrated to patient comfort during the course of the procedure. Patient remained responsive to all verbal commands. Position: Prone Monitoring: NIBP, Pulse oximetry, 3 lead EKG Needle used: 22G 3.5 inch spinal needle Contrast: Isovue 300M Injectate: 0.5% bupivacaine 0.5 mL per site Procedure: The patient was brought into the procedure room and positioned into the right lateral decubitus position. Skin was prepped with a Chloraprep solution, allowed to air dry, and then draped in sterile fashion.? The left C3-4 and C4-5 facet joints were visually identified with fluoroscopy. Lidocaine 1% was used to anesthetize the skin over each target destination with a 25ga needle. A 22 ga, 3.5 inch spinal needle was advanced to the location of the medial branch at the waist of the articular pillar using intermittent fluoroscopy in the AP view. Isovue 300M contrast 0.2ml was injected at each level outlining the borders for each level in the AP/lateral views and confirmed in the foraminal view. There was no evidence of vascular or intrathecal uptake. The above injectate was slowly injected at each target destination. At the end of the procedure the needles were withdrawn and Band-Aids were applied for a dressing. Post Procedure: Patient was taken to the recovery and monitored. The patient was provided a Pain Log to continue to record the patient's response to the target- specific procedure prior to the patient's follow-up visit with the referring physician. Patient was stable upon discharge. Detailed post procedure instructions were provided. Patient was asked to call in the event of worsening pain, fever, weakness, numbness or bladder or bowel incontinence. Based on the medial branches blocked today, if the patient meets insurance criteria for radiofrequency, the treatment should result in the denervation of the left C3-4 and C4-5 facet joint nerves. We would expect to denervate a total of 2 facets during the radiofrequency ablation. Complications: None
== END 2023-07-04 15:35 | disposition home or self-care (01) ==
PROVIDERS: PCP Family Medicine; Referring Provider Anesthesiology; Visit Provider Anesthesiology
DX: M47.812 Spondylosis without myelopathy or radiculopathy, cervical region (principal)
CPT/HCPCS: 64490; 64491; 99152; J2250

== ENCOUNTER → 2023-07-13 11:37 | Outpatient (CLI) | payer MEDICARE, OTHER, SELFPAY ==
[2023-07-09 16:35] VITALS: BMI 25.2
[2023-07-13 13:23] LABS: Add Manual Diff / Slide Review NO; Basophils Absolute Auto 100 /uL (0-100); Basophils Percent Auto 0.7 % (0-2); Eosinophils Absolute Auto 0 /uL (0-450); Eosinophils Percent Auto 0.4 % (2-4); Hematocrit 39.5 % (36-46); Hemoglobin 13.2 g/dL (12.0-16.0); Lymphocytes Absolute Auto 1900 /uL (1100-4500); Lymphocytes Percent Auto 23.5 % (25-40); Mean Corpuscular HGB Conc 33.3 % (30-36); Mean Corpuscular Hemoglobin 33.5 PG (26-34); Mean Corpuscular Volume 100.5 fL (80-100); Monocytes Absolute Auto 600 /uL (0-900); Monocytes Percent Auto 7.2 % (3-14); Neutrophils Absolute Auto 5400 /uL (1500-7000); Neutrophils Percent Auto 68.2 % (50-75); Platelet Count 330 X10^3/uL (150-400); Red Blood Cell Count 3.93 X10^6/uL (4.0-5.2); White Blood Cell Count 7.9 X10^3/uL (4.5-11.0)
[2023-07-13 13:49] LABS: Alanine Aminotransferase 19 IU/L (<35); Albumin 4.1 g/dL (3.5-5.0); Albumin Globulin Ratio 1.5 (1.0-2.8); Alkaline Phosphatase 94 U/L (38-126); Aspartate Aminotransferase 26 IU/L (14-36); BUN Creatinine Ratio 17.1 (6-22); Bilirubin Total 0.6 mg/dL (0.2-1.3); Blood Urea Nitrogen 14 mg/dL (7-17); Calcium 9.4 mg/dL (8.4-10.2); Carbon Dioxide 28 mmol/L (22-32); Chloride 105 mmol/L (98-107); Estimated Glomerular Filt Rate > 60 mL/min (>60); Globulin 2.8 g/dL (1.7-4.1); Glucose 94 mg/dL (80-110); HEMOLYSIS < 15 (0-50); Lactate Dehydrogenase 154 U/L (120-246); Potassium 4.3 mmol/L (3.4-5.1); Sodium 141 mmol/L (137-145); Total Protein 6.9 g/dL (6.3-8.2)
[2023-07-13 15:35] LABS: Bilirubin Urine UA NEGATIVE (NEGATIVE); Color Urine UA YELLOW; Glucose Urine UA NEGATIVE (Negative); Ketones Urine UA NEGATIVE (NEGATIVE); Leukocyte Esterase Urine UA NEGATIVE (NEGATIVE); Nitrite Urine UA NEGATIVE (Negative); Occult Blood Urine UA NEGATIVE (Negative); Protein Urine UA TRACE (Negative); Urobilinogen Urine UA 0.2 E.U./dL (0.2)
[2023-07-13 15:37] LABS: pH Urine UA 7.5 (4.5-8.0)
[2023-07-13 15:38] LABS: Appearance Urine UA SL CLOUDY
[2023-07-13 15:53] LABS: Bacteria Urine Occasional (0-1); Culture Indicated Urine Cult Not Indicated; Mucus Urine 1+ (Negative); RBC Urine None Seen (0-5/HPF); Squamous Epithelial Cell Urine 0-1 /HPF (0-5/HPF); Urine Volume Low Vol <10mL (spun); WBC Urine 0-1/HPF (0-5/HPF)
== END ==
PROVIDERS: PCP Family Medicine; Referring Provider Family Medicine; Visit Provider Family Medicine
DX: M47.816 Spondylosis without myelopathy or radiculopathy, lumbar region (principal); E78.2 Mixed hyperlipidemia; M54.50 Low back pain, unspecified; R74.8 Abnormal levels of other serum enzymes; R61 Generalized hyperhidrosis; N39.0 Urinary tract infection, site not specified
CPT/HCPCS: 36415; 80053; 81001; 83615; 85025

== ENCOUNTER → 2023-07-20 12:07 | Outpatient (CLI) | payer MEDICARE, OTHER, SELFPAY ==
[2023-07-09 16:35] VITALS: BMI 25.2
--- NOTE | 2023-07-20 12:09 | DI.RAD.S_ITS ---
PROCEDURE: XR CLAVICLE RT INDICATIONS: right sternoclavicular enlargement TECHNIQUE: 2 views of the clavicle were acquired. COMPARISON: None. FINDINGS: Bones: No fractures or dislocations. No suspicious bony lesions. Acromioclavicular and sternoclavicular joint space narrowing with osteophytosis. Soft tissues: No suspicious soft tissue calcifications. IMPRESSION: Acromioclavicular and sternoclavicular joint space narrowing with osteophytosis. This indicates degenerative change. Dictated by: Leonard Story M.D. on 07/20/2023 at 14:53 Approved by: Leonard Story M.D. on 07/20/2023 at 14:54
== END ==
PROVIDERS: PCP Family Medicine; Referring Provider Family Medicine; Visit Provider Family Medicine
DX: M25.711 Osteophyte, right shoulder (principal); M25.519 Pain in unspecified shoulder
CPT/HCPCS: 73000

== ENCOUNTER → 2023-10-15 11:41 | Outpatient (CLI) | payer MEDICARE, OTHER, SELFPAY ==
[2023-07-09 16:35] VITALS: BMI 25.2
== END ==
LOC: LAB 11:42
PROVIDERS: PCP Family Medicine; Referring Provider Family Medicine; Visit Provider Family Medicine
DX: K52.9 Noninfective gastroenteritis and colitis, unspecified (principal)
CPT/HCPCS: 83993

== ENCOUNTER → 2023-10-16 11:57 | Outpatient (CLI) | payer MEDICARE, OTHER, SELFPAY ==
[2023-07-09 16:35] VITALS: BMI 25.2
[2023-10-16 12:45] LABS: Add Manual Diff / Slide Review NO; Basophils Absolute Auto 100 /uL (0-100); Eosinophils Absolute Auto 300 /uL (0-450); Eosinophils Percent Auto 5.3 % (2-4); Hematocrit 42.1 % (36-46); Hemoglobin 14.1 g/dL (12.0-16.0); Lymphocytes Absolute Auto 2000 /uL (1100-4500); Lymphocytes Percent Auto 30.2 % (25-40); Mean Corpuscular HGB Conc 33.4 % (30-36); Mean Corpuscular Hemoglobin 33.1 PG (26-34); Monocytes Absolute Auto 400 /uL (0-900); Monocytes Percent Auto 6.8 % (3-14); Neutrophils Absolute Auto 3700 /uL (1500-7000); Neutrophils Percent Auto 56.7 % (50-75); Platelet Count 252 X10^3/uL (150-400); Red Blood Cell Count 4.26 X10^6/uL (4.0-5.2); Red Cell Distribution Width 14.1 % (11.6-14.8); White Blood Cell Count 6.5 X10^3/uL (4.5-11.0)
[2023-10-16 13:11] LABS: Alanine Aminotransferase 15 IU/L (<35); Albumin 4.1 g/dL (3.5-5.0); Albumin Globulin Ratio 1.6 (1.0-2.8); Alkaline Phosphatase 98 U/L (38-126); Aspartate Aminotransferase 31 IU/L (14-36); BUN Creatinine Ratio 13.5 (6-22); Bilirubin Total 0.7 mg/dL (0.2-1.3); Blood Urea Nitrogen 12 mg/dL (7-17); Calcium 9.6 mg/dL (8.4-10.2); Carbon Dioxide 26 mmol/L (22-32); Chloride 105 mmol/L (98-107); Estimated Glomerular Filt Rate > 60 mL/min (>60); Globulin 2.6 g/dL (1.7-4.1); Glucose 88 mg/dL (80-110); HEMOLYSIS < 15 (0-50); Potassium 4.1 mmol/L (3.4-5.1); Sodium 139 mmol/L (137-145); Total Protein 6.7 g/dL (6.3-8.2)
== END ==
PROVIDERS: PCP Family Medicine; Referring Provider Family Medicine; Visit Provider Family Medicine
DX: M79.7 Fibromyalgia (principal); M47.816 Spondylosis without myelopathy or radiculopathy, lumbar region; M54.50 Low back pain, unspecified; F41.8 Other specified anxiety disorders; E78.2 Mixed hyperlipidemia; R19.7 Diarrhea, unspecified
CPT/HCPCS: 36415; 80053; 85025

== ENCOUNTER → 2023-10-25 09:27 | Outpatient (CLI) | payer MEDICARE, OTHER, SELFPAY ==
[2023-07-09 16:35] VITALS: BMI 25.2
--- NOTE | 2023-10-25 09:29 | DI.CT.S_ITS ---
PROCEDURE: CT ABDOMEN PELVIS W CON INDICATIONS: chronic loose stools and abdominal discomfort with weight loss TECHNIQUE: After the administration of intravenous contrast, axial sections acquired from the lung bases to the pubic symphysis. Coronal and sagittal reformats were performed. For radiation dose reduction, the following was used: automated exposure control, adjustment of mA and/or kV according to patient size. COMPARISON: [facility], CT, CT ABDOMEN PELVIS W CON, 02/06/2021, 4:09. FINDINGS: Image quality: Diagnostic. Lower Chest: Stable 2 millimeter solid nodule in the left lower lobe, benign given stability. ABDOMEN: Liver: No solid mass. Simple appearing hepatic cyst in segment 2. Gallbladder: No radiopaque gallstones or wall thickening. Biliary ducts: No biliary dilation. Pancreas: No ductal dilation. 4 millimeter low attenuating lesion in the pancreatic neck (series 2, image 26). Spleen: Size is within normal limits. Adrenal Glands: No adrenal nodules. Kidneys and Ureters: No hydronephrosis. No solid mass. No complex renal cystic lesion which requires follow up. Stomach and Bowel: Normal colonic caliber, without significant wall thickening. No significant diverticular disease4 Peritoneum: No abnormal intraperitoneal fluid. No free air. Ventral Wall: No significant ventral hernia. Abdominal Nodes: No retroperitoneal or mesenteric adenopathy by size criteria. Vessels: Aorta and inferior vena cava are normal in size. PELVIS: Pelvic Organs: Unremarkable. Bladder: No bladder wall thickening, accounting for underdistention. Pelvic Nodes: No enlarged lymph nodes. Miscellaneous: No inguinal hernias are seen. Bones: No aggressive osseous abnormality. Degenerative disc disease of the lumbar spine. Grade 1 anterolisthesis of L4 on L5 secondary to facet arthrosis. IMPRESSION: No acute findings to explain the patient's loose stools, weight loss and discomfort. Consider diagnostic colonoscopy given the symptoms. Dictated by: Leonard Story M.D. on 10/26/2023 at 11:10 Approved by: Leonard Story M.D. on 10/26/2023 at 11:18
== END ==
PROVIDERS: PCP Family Medicine; Referring Provider Family Medicine; Visit Provider Family Medicine
DX: R91.1 Solitary pulmonary nodule (principal); K76.89 Other specified diseases of liver; K86.9 Disease of pancreas, unspecified; M43.16 Spondylolisthesis, lumbar region; M47.816 Spondylosis without myelopathy or radiculopathy, lumbar region; R19.7 Diarrhea, unspecified; R19.5 Other fecal abnormalities; R63.4 Abnormal weight loss; M51.36 Other intervertebral disc degeneration, lumbar region
CPT/HCPCS: 74177; Q9967

== ENCOUNTER 2023-12-07 06:51 | Day surgery (SDC) | payer MEDICARE, OTHER, SELFPAY ==
[2023-07-09 16:35] VITALS: BMI 25.2
--- NOTE | 2023-12-07 | PATH_ITS ---
[facility] Accession Number: [id number] No. of containers..04 Tissue . 01 Material submitted: . PART A: duodenum - DUODENAL PART B: colon - RIGHT COLON PART C: colon - TRANSVERSE PART D: colon - DESCENDING . 01 Diagnosis: A. Duodenum, biopsy: - Small bowel mucosa with preserved villous architecture, negative for histologic evidence of celiac disease. - Negative for dysplasia or malignancy. -- B. Colon, right, biopsy: - Mild increased intraepithelial lymphocytes favor microscopic lymphocytic colitis in the right clinical setting. - Negative for dysplasia or malignancy. -- C. Colon, transverse, biopsy: - Mild increased intraepithelial lymphocytes favor microscopic lymphocytic colitis in the right clinical setting. - Negative for dysplasia or malignancy. -- D. Colon, descending, biopsy: - Benign colonic mucosa, and no definite histologic features of microscopic colitis. - Negative for dysplasia or malignancy. - See comment. --- Comment: Trichrome special stain performed on part D with appropriate controls show: Shows no thickened subepithelial collagen band seen. -- Technical Note: This test was developed, and the performance characteristics were validated by [facility]. It has not been cleared or approved by the Food and Drug Administration. TXN 12/13/2023 1826 Local . 01 Electronically signed: . Tawfeq MD Hank, Pathologist NPI- [id number] . 01 Gross description: . Part A: DUODENAL: Received in formalin are multiple fragment(s) of sultana, soft tissue measuring 0.1 x 0.1 x 0.1 cm to 0.3 x 0.3 x 0.2 cm submitted entirely in 1 cassette(s) Part B: RIGHT COLON: Received in formalin are 2 fragment(s) of sultana, soft tissue measuring 0.2 x 0.2 x 0.2 cm to 0.4 x 0.3 x 0.2 cm submitted entirely in 1 cassette(s) Part C: TRANSVERSE: Received in formalin are 2 fragment(s) of sultana, soft tissue measuring 0.2 x 0.2 x 0.2 cm to 0.4 x 0.3 x 0.2 cm submitted entirely in 1 cassette(s) Part D: DESCENDING: Received in formalin are 2 fragment(s) of sultana, soft tissue measuring 0.2 x 0.2 x 0.2 cm to 0.3 x 0.2 x 0.2 cm submitted entirely in 1 cassette(s) /JANAY 12/10/2023 1844 Local . 01 Pathologist provided ICD-10: K52.832 . 01 CPT . 396077, 322902, 630511, 380462, [id number] Specimen Comment: A courtesy copy of this report has been sent to [phone] Performed at: [address] [facility] [address], [place], [place] [id number] MD Delfino Pruitt MD Phone: [phone]
[2023-12-07 07:06] VITALS: BP 141/94; PULSE 92; RESP 16; TEMP 36.2; O2SAT 98
--- NOTE | 2023-12-07 07:42 | PM.OP.EC ---
Operative Date/Time/Diagnoses Date of procedure: 12/07/23 Time of procedure: 07:42 Pre-op diagnosis: Chronic diarrhea and abdominal distress Post-op diagnosis: same Procedure & Clinicians Study performed: Esophagogastroduodenoscopy and colonoscopy Surgeon: Patric Monzon Procedure Notes Procedure in detail: Surgeon: Patric Monzon MD Anesthesia: Edwige Red CRNA Procedure in detail: A timeout was performed. A bite blocked was placed and monitors were attached to the patient. The patient was positioned in the left lateral decubitus position. Sedation was administered. Once the patient was sedated the endoscope was inserted through the bite block and passed through the esophagus and stomach and into the duodenum. There was mild duodenitis with no ulcerations. Biopsies were taken from the duodenal mucosa with cold forceps. We then withdrew the scope into the stomach. No abnormalities were found within the stomach. The endoscope was retroflexed and a very small hiatal hernia was noted. The endoscope was straightned and withdrawn into the esophagus. No abnormalities were noted in the esophagus. EGD findings: Mild duodenitis and small hiatal hernia Next we repositioned the patient for a colonoscopy. A digital rectal exam was performed and was normal. The colonoscope was inserted and advanced to the cecum. The appendiceal orifice was identified and photographed. The scope was slowly withdrawn over greater than 6 minutes. No abnormalities were identified. Random biopsies were taken from the right colon, transverse colon and descending colon with cold forceps. The scope was retroflexed in the rectum and no further abnormalities were noted. Colonoscopy findings: Grossly normal colon Total procedural EBL: 5 mL Scope withdrawal time: 25 minutes Sedation minutes: 30 minutes Post-procedure Disposition: PACU
--- NOTE | 2023-12-07 07:43 | PM.HP.1 ---
History of Present Illness History of Present Illness Date Patient Seen: 12/07/23 Time Patient Seen: 07:43 Chief complaint: EGD & Colonoscopy Narrative: Viviana is here for her EGD and colonoscopy. See the office note from October for details. She did decide that she wants to have the EGD as well as the colonoscopy as originally advised. [facility] Medical History Fibromyalgia Cervical spondylosis Lumbar spondylosis Low back pain Neck pain Medial epicondylitis of left elbow Small bowel obstruction Seborrheic keratosis Greater trochanteric bursitis of left hip Lung nodule Discomfort of right hip Chalazion of right lower eyelid Dermatitis Non-penetrating foreign body in left ear canal Pancreatitis Cataract (2014) Chicken pox Measles Mumps Acne (1963) Plantar warts (1974) Anxiety Depression Substance abuse DVT (deep venous thrombosis) (1997) Femoral-femoral bypass graft thrombosis, left (1998) Enteritis (02/17/14) Depression with anxiety Laceration of forearm Surgical History History of partial knee replacement (2005) Status post LASIK surgery (2000) History of vein stripping (11/1997) History of intestinal surgery (10/1996) History of intestinal surgery (05/1996) Anesthesia History of knee surgery History of gynecologic surgery (1975) Status post delivery (1985) Status post delivery (1983) Status post appendectomy (1980) History of tonsillectomy (1959) History of hip replacement (2012) History of cataract removal with insertion of prosthetic lens (01/2015) Family History Father Lung cancer Heart disease High cholesterol Mother Lung cancer Brother Heart attack Grandmother Heart disease Social History household members: spouse Smoking Status: Former smoker alcohol intake: former Meds Home Medications and Allergies Home Medications Medication Instructions Recorded Confirmed Type duloxetine 60 mg capsule,delayed 60 mg PO DAILY #90 caps 09/05/23 12/07/23 Rx release gabapentin 300 mg capsule 300 mg PO TID #180 caps 09/05/23 12/07/23 Rx meloxicam 7.5 mg tablet 15 mg (2 x 7.5 mg) PO DAILY PRN 09/05/23 12/07/23 Rx pain #120 tabs hydroxyzine HCl 25 mg tablet 25 mg PO TID PRN anxiety #60 tabs 10/19/23 12/07/23 Rx naltrexone 1.5 mg capsule 0.5 mg (0.3333 x 1.5 mg) PO .QHS 12/04/23 12/07/23 Rx #1 kit Allergies Allergy/AdvReac Type Severity Reaction Status Date / Time morphine AdvReac Out of Verified 12/07/23 07:04 body experience Exam Vital Signs (past 8 hours): - 12/07/23 07:06 Temperature 97.1 F L Pulse Rate 92 H Respiratory Rate 16 Blood Pressure 141/94 H Pulse Oximetry 98 Oxygen Delivery Method Room Air Oxygen Delivery Method Room Air Const General: No acute distress Resp Effort & Inspection: normal respiratory effort Assessment & Plan Assessment and plan (1) Chronic diarrhea: Status: Acute Plan Recommend we proceed with EGD and colonoscopy and perform biopsies. Time-Based Coding :: [TOTAL MINUTES] spent with patient and on the chart (including review of chart, obtaining history, exam, reviewing outside data, placing orders, documenting exam and treatment plan, and counseling patient) on [DATE].
[2023-12-07 08:33] VITALS: BP 104/71; PULSE 92; RESP 14; TEMP 36.6; O2SAT 98
[2023-12-07 08:38] VITALS: BP 115/62; PULSE 98; RESP 18; O2SAT 95
[2023-12-07 08:43] VITALS: BP 123/71; PULSE 99; RESP 14; O2SAT 96
[2023-12-07 08:47] VITALS: BP 138/90; PULSE 87; RESP 20; TEMP 36.6; O2SAT 97
== END 2023-12-07 09:17 | disposition home or self-care (01) ==
PROVIDERS: PCP Family Medicine; Referring Provider Surgery; Visit Provider Surgery
PROC: 0DJ08ZZ Inspection of Upper Intestinal Tract, Via Natural or Artificial Opening Endoscopic (ICD-10-PCS; CPT 45380; principal; 2023-12-07 07:45)
PROC: 0DJD8ZZ Inspection of Lower Intestinal Tract, Via Natural or Artificial Opening Endoscopic (ICD-10-PCS; CPT 45378; 2023-12-07 07:45)
DX: R19.7 Diarrhea, unspecified (principal); R10.9 Unspecified abdominal pain; K29.80 Duodenitis without bleeding; K44.9 Diaphragmatic hernia without obstruction or gangrene
CPT/HCPCS: 45380; 43239; J2704

== ENCOUNTER → 2024-01-29 14:58 | Outpatient (CLI) | payer MEDICARE, OTHER, SELFPAY ==
[2023-07-09 16:35] VITALS: BMI 25.2
--- NOTE | 2024-01-29 15:00 | DI.RAD.S_ITS ---
PROCEDURE: XR CHEST 2V INDICATIONS: chronic cough with phlegm TECHNIQUE: 2 views of the chest were acquired. COMPARISON: [facility], CR, XR CHEST 2V, 09/07/2022, 12:01. FINDINGS: Surgical changes and devices: None. Lungs and pleura: Lungs are clear. No pleural effusions or pneumothorax. Mediastinum: Mediastinal contours are normal. Heart size is normal. Bones and chest wall: No suspicious bony abnormalities. Soft tissues appear unremarkable. IMPRESSION: No acute cardiopulmonary abnormality is seen. Dictated by: Lynn Moreno M.D. on 01/29/2024 at 17:09 Approved by: Lynn Moreno M.D. on 01/29/2024 at 17:09
[2024-01-29 17:34] LABS: Add Manual Diff / Slide Review NO; Basophils Absolute Auto 100 /uL (0-100); Basophils Percent Auto 0.7 % (0-2); Eosinophils Absolute Auto 200 /uL (0-450); Eosinophils Percent Auto 2.3 % (2-4); Hematocrit 41.9 % (36-46); Hemoglobin 13.7 g/dL (12.0-16.0); Lymphocytes Absolute Auto 2700 /uL (1100-4500); Mean Corpuscular HGB Conc 32.8 % (30-36); Mean Corpuscular Hemoglobin 33.1 PG (26-34); Mean Corpuscular Volume 101.2 fL (80-100); Monocytes Absolute Auto 700 /uL (0-900); Neutrophils Absolute Auto 4800 /uL (1500-7000); Platelet Count 211 X10^3/uL (150-400); Red Blood Cell Count 4.14 X10^6/uL (4.0-5.2); Red Cell Distribution Width 12.6 % (11.6-14.8); White Blood Cell Count 8.4 X10^3/uL (4.5-11.0)
[2024-01-29 18:58] LABS: Alanine Aminotransferase 18 IU/L (<35); Albumin 4.2 g/dL (3.5-5.0); Albumin Globulin Ratio 1.3 (1.0-2.8); Alkaline Phosphatase 102 U/L (38-126); Aspartate Aminotransferase 31 IU/L (14-36); BUN Creatinine Ratio 27.8 (6-22); Bilirubin Total 0.3 mg/dL (0.2-1.3); Blood Urea Nitrogen 22 mg/dL (7-17); Calcium 9.4 mg/dL (8.4-10.2); Carbon Dioxide 30 mmol/L (22-32); Chloride 105 mmol/L (98-107); Estimated Glomerular Filt Rate > 60 mL/min (>60); Globulin 3.3 g/dL (1.7-4.1); Glucose 95 mg/dL (80-110); HEMOLYSIS < 15 (0-50); Potassium 4.9 mmol/L (3.4-5.1); Sodium 136 mmol/L (137-145); Total Protein 7.5 g/dL (6.3-8.2)
[2024-01-29 19:19] LABS: TSH w/ Reflex to FT4 1.75 uIU/mL (0.47-4.68)
[2024-01-29 21:15] LABS: C-Reactive Protein Quant 0.9 mg/dL (<1.0)
[2024-02-03 12:38] LABS: Estrogen 109 pg/mL (40-244)
== END ==
PROVIDERS: PCP Family Medicine; Referring Provider Physician Assistant; Visit Provider Physician Assistant
DX: R05.9 Cough, unspecified (principal); R23.2 Flushing
CPT/HCPCS: 36415; 71046; 80053; 82672; 84443; 85025; 86140

== ENCOUNTER → 2024-03-07 11:00 | Outpatient (CLI) | payer MEDICARE, OTHER, SELFPAY ==
[2023-07-09 16:35] VITALS: BMI 25.2
--- NOTE | 2024-03-07 11:02 | DI.CT.S_ITS ---
PROCEDURE: CT CHEST WO CON INDICATIONS: Sternoclavicular joint OA TECHNIQUE: Noncontrast 5 mm thick sections acquired from the pulmonary apices to the posterior costophrenic angles. 1 mm lung window, 5 mm thick coronal and sagittal and 7 mm axial MIP reformats were then acquired. For radiation dose reduction, the following was used: automated exposure control, adjustment of mA and/or kV according to patient size. COMPARISON: [facility], CT, CT CHEST WO CON, 10/28/2020, 11:12. FINDINGS: Image quality: Diagnostic Lungs and pleura: Scattered scarring and atelectasis. No suspicious pulmonary nodules. No airspace consolidation. No pleural effusions. Mediastinum, heart, and esophagus: Normal heart size. Trace pericardial effusion. No pathologic lymph nodes by size criteria. Prominent pre carinal lymph node measuring 1 cm appears similar to prior imaging. There are vascular calcifications. Esophagus is unremarkable Chest wall and thyroid: Thyroid is unremarkable. Chest wall is unremarkable. Upper abdomen: No gross abnormality on these noncontrast images Bones: Degenerative changes are present At the location of the BB marker at the right sternoclavicular joint, there is focal synovial hypertrophy and degenerative changes with osteophytes that is asymmetric to the contralateral side. There is no acute fracture or dislocation identified IMPRESSION: At the location of the BB marker, there is asymmetric appearing degenerative changes and synovial hypertrophy , with edema of the sternoclavicular joint. No definite osseous erosions. Depending on history, consider also inflammatory or infectious causes. MRI could further evaluate but may not necessarily further identify etiology Other findings above. Dictated by: Humberto Ruiz M.D. on 03/07/2024 at 14:14 Approved by: Humberto Ruiz M.D. on 03/07/2024 at 14:20
== END ==
LOC: CT 11:02
PROVIDERS: PCP Family Medicine; Referring Provider Family Medicine; Visit Provider Family Medicine
DX: M19.011 Primary osteoarthritis, right shoulder (principal)
CPT/HCPCS: 71250

== ENCOUNTER → 2024-03-20 12:42 | Outpatient (CLI) | payer MEDICARE, OTHER, SELFPAY ==
[2023-07-09 16:35] VITALS: BMI 25.2
[2024-03-20 14:17] LABS: Erythrocyte Sedimentation Rate 16 MM/HR (0-20)
[2024-03-20 14:22] LABS: Rheumatoid Factor 29.7 IU/mL (<12.0)
== END ==
PROVIDERS: PCP Family Medicine; Referring Provider Family Medicine; Visit Provider Family Medicine
DX: M19.90 Unspecified osteoarthritis, unspecified site (principal); M25.419 Effusion, unspecified shoulder
CPT/HCPCS: 36415; 85651; 86038; 86200; 86430

== ENCOUNTER → 2024-05-28 10:10 | Outpatient (CLI) | payer MEDICARE, OTHER, SELFPAY ==
[2024-05-26 10:06] VITALS: BMI 25.2
--- NOTE | 2024-05-28 10:11 | DI.RAD.S_ITS ---
PROCEDURE: XR DEXA AXIAL SKELETON INDICATIONS: INFL ARTHRITIS,RHEUMATOID FACTOR POS,ASYM MENOPAUS COMPARISON: [facility], CR, XR HIP W PEL IF DONE RT 2V, 12/18/2022, 14:29. [facility], CR, XR DEXA AXIAL SKELETON, 10/27/2022, 16:01. FINDINGS: Lumbar Spine: Bone mineral density 0.729 g/cm2, T score -2.9. There is interval 13% decrease in total lumbar spine bone mineral density. Right Femoral Neck: Bone mineral density 0.595 g/cm2, T score -2.3. There is interval 5.9% decrease in right femoral neck bone mineral density. Right Hip: Bone mineral density 0.689 g/cm2, T score -2.1. There is interval 7% decrease in total right hip bone mineral density. Fracture Risk Calculation (when applicable): 10-year fracture risk of a major osteoporotic fracture 19 percent and of a hip fracture 5.8 percent. (T score greater or equal to -1.0 to: NORMAL) (T score from -1.1 to -2.4: OSTEOPENIA) (T score less than or equal to -2.5: OSTEOPOROSIS) IMPRESSION: Osteoporosis. Follow-up guidelines as follows: Osteoporosis: Consider a repeat DEXA and Vertebral Fracture Assessment (VFA) exam in 2 years or sooner if medically necessary, to reassess this patient's status. Osteopenia: Consider a repeat DEXA in 2-3 years to reassess this patient's status, or if there is a new clinical indication. Normal: Consider a repeat DEXA in 5 years or sooner, or if there is a new clinical indication. All treatment decisions require clinical judgment and consideration of individual patient factors, including patient preferences, comorbidities, previous drug use, risk factors not captured in the FRAX model (e.g., frailty, falls, vitamin D deficiency, increased bone turnover, interval significant decline in bone density ) and possible under- or over-estimation of fracture risk by FRAX. In addition, the NOF Guide recommends that FDA-approved medical therapies be considered in postmenopausal women and men age >= 50 years with a: * Hip or vertebral (clinical or morphometric) fracture * T-score of <=-2.5 at the spine or hip * Ten-year fracture probability by FRAX of >= 3% for hip fracture or >=20% for major osteoporotic fracture. Dictated by: Charanjit Carroll M.D. on 05/28/2024 at 17:03 Approved by: Charanjit Carroll M.D. on 05/28/2024 at 17:05
== END ==
PROVIDERS: PCP Family Medicine; Referring Provider Physician Assistant; Visit Provider Physician Assistant
DX: M81.0 Age-related osteoporosis without current pathological fracture (principal); M19.90 Unspecified osteoarthritis, unspecified site; R76.8 Other specified abnormal immunological findings in serum; Z78.0 Asymptomatic menopausal state
CPT/HCPCS: 77080

== ENCOUNTER → 2024-08-29 13:58 | Outpatient (CLI) | payer MEDICARE, OTHER, SELFPAY ==
[2024-05-26 10:06] VITALS: BMI 25.2
--- NOTE | 2024-08-29 14:36 | EKG_ITS ---
[facility] [address] [address] [address] [address] Test Date: 2024-08-29 Pat Name: Kralene Chavez Department: Room: Gender: Female [employer]: celeste : 1950 Requested By: Order Number: [id number] Reading MD: Ambrocio Holcomb MD Measurements Intervals [place] Rate: 73 P: 22 MS: 138 QRS: 4 QRSD: 72 T: 41 QT: 386 QTc: 425 Interpretive Statements Normal sinus rhythm Electronically Signed On 08-29-2024 16:35:28 PDT by Ambrocio Holcomb MD
[2024-08-29 15:03] LABS: Add Manual Diff / Slide Review NO; Hematocrit 40.8 % (36-46); Hemoglobin 13.7 g/dL (12.0-16.0); Lymphocytes Absolute Auto 1000 /uL (1100-4500); Mean Corpuscular HGB Conc 33.6 % (30-36); Mean Corpuscular Hemoglobin 33.6 PG (26-34); Mean Corpuscular Volume 100.0 fL (80-100); Platelet Count 214 X10^3/uL (150-400)
[2024-08-29 15:13] LABS: Appearance Urine UA CLEAR; Bilirubin Urine UA NEGATIVE (NEGATIVE); Color Urine UA YELLOW; Glucose Urine UA NEGATIVE (Negative); Ketones Urine UA NEGATIVE (NEGATIVE); Leukocyte Esterase Urine UA 2+ (NEGATIVE); Nitrite Urine UA NEGATIVE (Negative); Occult Blood Urine UA NEGATIVE (Negative); Protein Urine UA NEGATIVE (Negative); Specific Gravity Urine UA 1.010 (1.000-1.035); Urobilinogen Urine UA 1.0 E.U./dL (0.2); pH Urine UA 7.5 (4.5-8.0)
[2024-08-29 15:16] LABS: Hemoglobin A1C% w Est Avg Glu 5.1 % (4.0-6.0)
[2024-08-29 15:21] LABS: Culture Indicated Urine Specimen Cultured
[2024-08-29 15:27] LABS: Blood Urea Nitrogen 23 mg/dL (7-17); Calcium 9.5 mg/dL (8.4-10.2); Carbon Dioxide 27 mmol/L (22-32); Chloride 105 mmol/L (98-107); Estimated Glomerular Filt Rate 54 mL/min (>60); Glucose 116 mg/dL (70-99); HEMOLYSIS < 15 (0-50); Potassium 4.4 mmol/L (3.4-5.1); Sodium 140 mmol/L (137-145)
== END ==
LOC: LAB 13:59
PROVIDERS: PCP Family Medicine; Referring Provider Orthopaedic Surgery; Visit Provider Orthopaedic Surgery
DX: Z01.812 Encounter for preprocedural laboratory examination (principal); N39.0 Urinary tract infection, site not specified; R73.9 Hyperglycemia, unspecified; Z01.818 Encounter for other preprocedural examination
CPT/HCPCS: 36415; 80048; 81001; 83036; 85025; 87077; 87086; 87186; 93005

== ENCOUNTER → 2024-09-16 09:23 | Outpatient (CLI) | payer MEDICARE, OTHER, SELFPAY ==
[2024-05-26 10:06] VITALS: BMI 25.2
[2024-09-16 09:50] LABS: Add Manual Diff / Slide Review NO; Hematocrit 41.0 % (36-46); Hemoglobin 13.7 g/dL (12.0-16.0); Lymphocytes Absolute Auto 2200 /uL (1100-4500); Mean Corpuscular HGB Conc 33.4 % (30-36); Mean Corpuscular Hemoglobin 33.4 PG (26-34); Mean Corpuscular Volume 100.0 fL (80-100); Platelet Count 208 X10^3/uL (150-400)
[2024-09-16 10:20] LABS: Alanine Aminotransferase 15 IU/L (<35); Albumin 4.2 g/dL (3.5-5.0); Albumin Globulin Ratio 1.6 (1.0-2.8); Alkaline Phosphatase 85 U/L (38-126); Blood Urea Nitrogen 24 mg/dL (7-17); Calcium 9.4 mg/dL (8.4-10.2); Carbon Dioxide 29 mmol/L (22-32); Chloride 105 mmol/L (98-107); Estimated Glomerular Filt Rate > 60 mL/min (>60); Globulin 2.7 g/dL (1.7-4.1); Glucose 70 mg/dL (70-99); HEMOLYSIS < 15 (0-50); Potassium 4.0 mmol/L (3.4-5.1); Sodium 139 mmol/L (137-145); Total Protein 6.9 g/dL (6.3-8.2)
[2024-09-16 10:41] LABS: TSH w/ Reflex to FT4 2.88 uIU/mL (0.47-4.68)
== END ==
PROVIDERS: PCP Family Medicine; Referring Provider Family Medicine; Visit Provider Family Medicine
DX: R61 Generalized hyperhidrosis (principal); E78.2 Mixed hyperlipidemia; F41.9 Anxiety disorder, unspecified; M54.50 Low back pain, unspecified; G89.29 Other chronic pain; M06.9 Rheumatoid arthritis, unspecified
CPT/HCPCS: 36415; 80053; 84443; 85025

== ENCOUNTER → 2025-01-30 11:15 | Outpatient (CLI) | payer MEDICARE, OTHER, SELFPAY ==
[2024-10-21 19:00] VITALS: BMI 23.6
[2025-01-30 12:04] LABS: Add Manual Diff / Slide Review NO; Hematocrit 41.9 % (36-46); Hemoglobin 13.8 g/dL (12.0-16.0); Lymphocytes Absolute Auto 1800 /uL (1100-4500); Mean Corpuscular HGB Conc 33.0 % (30-36); Mean Corpuscular Hemoglobin 32.3 PG (26-34); Mean Corpuscular Volume 97.8 fL (80-100); Platelet Count 189 X10^3/uL (150-400)
[2025-01-30 12:31] LABS: Alanine Aminotransferase 13 IU/L (<35); Albumin 4.1 g/dL (3.5-5.0); Albumin Globulin Ratio 1.4 (1.0-2.8); Alkaline Phosphatase 104 U/L (38-126); Blood Urea Nitrogen 21 mg/dL (7-17); Calcium 9.6 mg/dL (8.4-10.2); Carbon Dioxide 28 mmol/L (22-32); Chloride 104 mmol/L (98-107); Estimated Glomerular Filt Rate > 60 mL/min (>60); Globulin 2.9 g/dL (1.7-4.1); Glucose 95 mg/dL (70-99); HEMOLYSIS < 15 (0-50); Lipase 93 U/L (23-300); Potassium 4.7 mmol/L (3.4-5.1); Sodium 140 mmol/L (137-145); Total Protein 7.0 g/dL (6.3-8.2)
[2025-01-30 13:02] LABS: TSH w/ Reflex to FT4 2.35 uIU/mL (0.47-4.68)
[2025-01-30 15:32] LABS: Appearance Urine UA CLEAR; Bilirubin Urine UA 2+ (NEGATIVE); Color Urine UA YELLOW; Glucose Urine UA NEGATIVE (Negative); Ketones Urine UA NEGATIVE (NEGATIVE); Leukocyte Esterase Urine UA NEGATIVE (NEGATIVE); Nitrite Urine UA NEGATIVE (Negative); Occult Blood Urine UA NEGATIVE (Negative); Protein Urine UA NEGATIVE (Negative); Specific Gravity Urine UA <=1.005 (1.000-1.035); Urobilinogen Urine UA 0.2 E.U./dL (0.2)
[2025-01-30 15:33] LABS: pH Urine UA 5.5 (4.5-8.0)
[2025-01-30 15:40] LABS: Culture Indicated Urine Cult Not Indicated; Ictotest Urine Negative (Negative)
== END ==
PROVIDERS: PCP Family Medicine; Referring Provider Family Medicine; Visit Provider Family Medicine
DX: R39.15 Urgency of urination (principal); N39.41 Urge incontinence; R19.5 Other fecal abnormalities
CPT/HCPCS: 36415; 80053; 81001; 83690; 84443; 85025